=== PATIENT | female | born 1930 | race Caucasian/White ===

== ENCOUNTER 2018-12-25 09:00 | Inpatient (IN) ==
[2018-12-25] MEDS ORDERED: NITROGLYCERIN 2% OINTMENT 30GM TUBE EXT STA (09:29)
[2018-12-25] MEDS ORDERED: ASPIRIN CHEW 324 MG PO STA (09:29)
[2018-12-25 09:46] LABS: Basophils # (auto) 0.02 K/uL (0-0.2); Basophils % (auto) 0.2 %; Eosinophils # (auto) 0.21 K/uL (0-0.5); Eosinophils % (auto) 1.9 %; Hemoglobin 14.7 g/dL (12.0-16.0); Immature Granulocytes # (auto) 0.07 K/uL (0.00-0.02); Immature Granulocytes % (auto) 0.6 %; Lymphocytes # (auto) 2.34 K/uL (1.2-3.4); Lymphocytes % (auto) 20.7 %; Mean Corpuscular Hemoglobin 29.6 pg (25-34); Mean Corpuscular Hgb Conc 34.2 g/dL (32-36); Mean Corpuscular Volume 86.5 fL (80-100); Mean Platelet Volume 10.9 fL (7.4-10.4); Monocytes % (auto) 12.4 %; Neutrophils # (auto) 7.25 K/uL (1.4-6.5); Neutrophils % (auto) 64.2 %; Platelet Count 148 K/uL (130-400); RDW Coefficient of Variation 13.7 % (11.5-14.5); RDW Standard Deviation 43.1 fL (36.4-46.3); Red Blood Count 4.97 M/uL (4.2-5.4); White Blood Count 11.29 K/uL (4.8-10.8)
[2018-12-25 09:52] LABS: Alanine Aminotransferase 31 U/L (12-78); Albumin Level 3.5 gm/dl (3.4-5.0); Aspartate Aminotransferase 9 U/L (15-37); BUN Creatinine Ratio 18.5 (10-20); Blood Urea Nitrogen 16 mg/dl (7-18); Calcium 9.4 mg/dl (8.5-10.1); Carbon Dioxide 30 mmol/L (21-32); Chloride 103 mmol/L (98-107); Creatinine Clr Calc Pharmacy 37.3 ml/min; Est GFR (African American) 66.6; Est GFR (Non-African American) 57.5; Glucose 123 mg/dl (70-99); Lipase 74 U/L (73-393); Magnesium 2.2 mg/dl (1.8-2.4); Sodium 139 mmol/L (136-145)
[2018-12-25 09:56] LABS: Partial Thromboplastin Ratio 0.8; Partial Thromboplastin Time 22.9 Seconds (21.0-31.0); Prothrombin Time 10.7 Seconds (9.0-12.0)
[2018-12-25 09:58] LABS: Alkaline Phosphatase 80 U/L (45-117); Bilirubin,Total 0.6 mg/dl (0.2-1); Globulin 3.4 gm/dl (2.5-4.0); Total Protein 6.9 gm/dl (6.4-8.2); Troponin I < 0.015 ng/ml (0-0.045)
--- NOTE | 2018-12-25 09:58 | XRay Report ---
XR chest 1V portable HISTORY: Atypical Chest Pain COMPARISON: Chest 07/19/2018. FINDINGS: The lungs are clear. The heart remains mildly enlarged. This remains unchanged. There is a tortuous thoracic aorta, unchanged. No pleural effusions. No pneumothorax. No focal lung consolidatio ns to suggest pneumonia. No evidence for edema. IMPRESSION: No significant change compared to the prior study. No acute process. Stable mild cardiomegaly. Electronically signed by: Kevin Anderson M.D. 12/25/2018 9:57 AM
[2018-12-25] MEDS ORDERED: ONDANSETRON INJ 2 MG/ML 2 ML VIAL IV PRN (12:00)
[2018-12-25] MEDS ORDERED: ACETAMINOPHEN 325 MG TAB PO PRN (12:00)
--- NOTE | 2018-12-25 12:23 | History & Physical Report ---
Date of Service December 25, 2018 Assessment & Plan (1) Stable angina: This is an 88-year-old female with past medical history of type 2 diabetes, diastolic heart failure, hypertension, HLD and other medical brims below who presents with chest pain beginning last evening. -Exertional chest pain relieved with rest since yesterday -Given full dose aspirin and 1" ntg paste in ED. Currently chest pain free -EKG reveals normal sinus rhythm with sinus arrhythmia. No acute ischemic changes. Chest x-ray without acute process. Initial troponin negative -Most recent echo from September 2018 with preserved EF of 60%. -Trend troponin, repeat EKG in AM, telemetry -Routine cardiology consult (2) Diabetes mellitus, type II: A1c of 6.4 in June 2018 -Diet controlled -Add SSI coverage if indicated (3) Diastolic heart failure: Appears compensated with euvolemic volume status -Continue home dose lasix -Low sodium diet (4) HTN (hypertension): Continue Lopressor, lisinopril (5) HLD (hyperlipidemia): Intolerant to statins (6) Hypothyroidism: Continue levothyroxine DVT Ppx: SQ heparin Code status: DNR per discussion with patient PCP: Bel Dispo: Observation telemetry. Discharge planning ordered. Patient seen in collaboration with Dr. Parmar. Please see addendum. History of Present Illness Chief Complaint: Chest pain Primary Care Provider: Ananya Staples MD This is an 88-year-old female with past medical history of type 2 diabetes, diastolic heart failure, hypertension, HLD and other medical brims below who presents with chest pain beginning last evening. States that she woke up during the night with chest pain in a bandlike distribution across chest and back/shoulders. Pain resolved and she was able to go back to sleep. When she woke up today and ambulated to bathroom, chest pain returned and she described it as heavy central chest pain with radiation to left and right side of chest and pain in shoulders. Exacerbated by movement and exertion. No associated shortness of breath, diaphoresis, nausea or vomiting. Since arrival in the ED, patient was given full dose aspirin and 1 inch of Nitropaste. No longer experiencing chest pain. Patient states she experienced intermittent angina years ago and this feels very similar. Follows with Dr. Valente of cardiology service for diastolic heart failure. Noticed more bilateral lower extremity swelling last month and Dr. Staples started patient on 20 mg of Lasix daily with improvement to edema. Denies fever, chills, lightheadedness, headache, visual changes, palpitations, shortness of breath, nausea, vomiting, abdominal pain, dysuria, diarrhea or constipation. EKG reveals normal sinus rhythm with sinus arrhythmia. No acute ischemic changes. Chest x-ray without acute process. Initial troponin negative. Most recent echo from September 2018 with preserved EF of 60%. Allergies Allergy/AdvReac Type Severity Reaction Status Date / Time allopurinol Allergy Unknown Verified 12/25/18 09:59 amlodipine Allergy Unknown Verified 12/25/18 09:59 ciprofloxacin [From Cipro] Allergy Unknown Verified 12/25/18 09:59 nifedipine Allergy Unknown Verified 12/25/18 09:59 NSAIDS (Non-Steroidal Allergy Unknown Verified 12/25/18 09:59 Anti-Inflamma oxybutynin [From Ditropan] Allergy Unknown Verified 12/25/18 09:59 Pyltmzb-Iec-Aiy Reductase Allergy Unknown Verified 12/25/18 09:59 Inhibitor sulfamethoxazole AdvReac CENTRAL Verified 12/25/18 09:59 [From Bactrim] NERVOUS SYSTEM DYSFUNCTION trimethoprim [From Bactrim] AdvReac CENTRAL Verified 12/25/18 09:59 NERVOUS SYSTEM DYSFUNCTION Home Medications Home Medications Medication Instructions Recorded Confirmed Type ascorbate calcium-bioflavonoid 1 tab PO UD 07/19/18 12/25/18 History [Rachelle-C with Bioflavonoids] aspirin [Aspir-81] 81 mg PO QAM 07/19/18 12/25/18 History colchicine [Colcrys] 0.6 mg PO DAILY PRN 07/19/18 12/25/18 History cranberry 2,400 mg PO QAM 07/19/18 12/25/18 History darifenacin [Enablex] 15 mg PO QAM 07/19/18 12/25/18 History fexofenadine [Pamela Allergy] 180 mg PO QAM 07/19/18 12/25/18 History fluocinonide 1 applic TOPICAL BID PRN 07/19/18 12/25/18 History hydrocortisone 1 applic MS UD PRN 07/19/18 12/25/18 History levothyroxine [Synthroid] 112 mcg PO DAILYBB 07/19/18 12/25/18 History metoprolol tartrate 12.5 mg PO BID 07/19/18 12/25/18 History omeprazole 20 mg PO QAM 07/19/18 12/25/18 History polyethylene glycol 3350 [Miralax] 8.5 - 17 g PO QAM 07/19/18 12/25/18 History potassium chloride [Klor-Con 10] 10 meq PO QAM 07/19/18 12/25/18 History triamcinolone acetonide 1 applic TOPICAL BID PRN 07/19/18 12/25/18 History witch phi [Tucks (witch phi)] 1 pad TOPICAL BID PRN 07/19/18 12/25/18 History calcium carbonate-vitamin D3 1 tab PO QAM 12/25/18 12/25/18 History [Calcium 600 + D(3)] furosemide 20 mg PO QAM 12/25/18 12/25/18 History latanoprost 1 drp OPHTHALMIC (EYE) HS 12/25/18 12/25/18 History lisinopril 5 mg PO DAILY 12/25/18 12/25/18 History Past Med/Surg History Medical History HLD (hyperlipidemia) (Chronic) HTN (hypertension) (Chronic) Hyponatremia (Chronic) Hypothyroidism (Chronic) Diabetes mellitus, type II (Chronic) Diastolic heart failure (Chronic) Stable angina (Acute) Surgical History History of partial colectomy (Chronic) Hx of partial cystectomy (Chronic) S/P bilateral hip replacements (Chronic) Family History Other Family history non-contributory Social History Preferred Language: Faroese Communication Ability: Effective Beliefs That Will Affect Care: Latter-Day Latter-Day Beliefs: rastafarian marital status: Single Current Living Situation: Personal Care Facility current occupational status: retired Other Information That Helps Us Care for You: No Feels Safe at Home: Yes Safety Concerns: Feels Safe At This Time Smoking Status: Former smoker Hx Alcohol Use: No Review of Systems Review of Systems: Unobtainable due to cognitive status Physical Exam Physical Exam: General Appearance: WD/WN, vitals as above, NAD, sitting up in bed, pleasant, conversing easily Head: normocephalic, atraumatic Eyes: normal inspection, PERRL, conjunctivae normal, anicteric sclerae ENT: external ear and nose normal, oropharynx normal Neck: trachea midline, no thyromegaly normal visual inspection Respiratory: lungs clear to auscultation, no wheeze, rales, rhonchi. Normal insp/exp effort, no accessory muscle use Cardiovascular: regular rate, rhythm, no murmur appreciated, normal peripheral pulses, no BLE edema. Vessels: no JVD or carotid bruit Chest: normal inspection of chest Abdomen/GI: normal bowel sounds, soft, nontender, no hepatosplenomegaly Extremities/Musculoskelatal: no cyanosis or clubbing, extremities motor strength 5/5 Neurologic: PERRL, EOMI, accommodation nl, no face palsy, no dysarthria CN's II-XI intact bilaterally and moves all extremities Psychiatric: A+Ox3, euthymic affect Skin: no rashes, normal color, warm/dry Results & Data Vital Signs (Past 12 Hours) Vital Signs Temp Pulse Pulse Resp BP BP Pulse Ox 12/25/18 12:01 36.3 C L 72 18 162/87 H 98 12/25/18 11:01 57 L 21 141/73 H 98 12/25/18 10:31 55 L 15 136/86 97 12/25/18 10:01 55 L 20 157/86 H 97 12/25/18 09:39 61 18 156/77 H 97 12/25/18 09:33 97 12/25/18 09:12 68 20 97 12/25/18 09:02 36.6 C 67 16 165/89 H 96 Laboratory Results Short CBC 12/25/18 Range/Units 09:15 WBC 11.29 H (4.8-10.8) K/uL Hgb 14.7 (12.0-16.0) g/dL Hct 43.0 (37-47) % Plt Count 148 (130-400) K/uL BMP 12/25/18 09:15 Sodium 139 Potassium 4.0 Chloride 103 Carbon Dioxide 30 BUN 16 Creatinine 0.89 Glucose 123 H Calcium 9.4 Cardiac Enzymes 12/25/18 Range/Units 09:15 Troponin I < 0.015 (0-0.045) ng/ml Liver Function 12/25/18 Range/Units 09:15 Total Bilirubin 0.6 (0.2-1) mg/dl AST 9 L (15-37) U/L ALT 31 (12-78) U/L Alkaline Phosphatase 80 (45-117) U/L Albumin 3.5 (3.4-5.0) gm/dl Diagnostic Findings CXR: IMPRESSION: No significant change compared to the prior study. No acute process. Stable mild cardiomegaly. ECG Rhythm: sinus with SA Supervising Physician Co-Signing Physician Notes I saw this patient with the physician assistant facility manager, I participated in the history, physical, review of systems, and physical exam. I reviewed the medications with the patient and the physician assistant facility manager and helped reconcile the medications. I helped take a detailed family and social history as well. I formulated the assessment and plan personally with the physician assistant facility manager and went over it with the patient. ROS-No Headache, No Visual Changes, No Nausea, No Vomiting, No Fever, No Chills, No Neck Pain or Stiffness, pos Chest Pain rad into back, No Palpitations, No SOB, No ROLON, No Cough, No Sputum, No Wheezing, No Abdominal Pain, No Diarrhea, No Hematemesis, No Hemoptysis, No Unexpected Weight Loss, No Flank pain, No Melena, No Hematochezia, No Frequency, No Urgency, No Burning, No Hematuria, No Rashes, No Diaphoresis. Appetite is Normal Physical Exam Gen-AAO x 3, NAD, Afebrile Head-NCAT, EOMI, PERRLA, Anicteric Sclera, No Posterior Pharyngeal Erythema Neck-Supple, No JVD, No Thyromegaly, No Masses, No LAD, No Bruits Lungs-Clear to Auscultation Bilaterally, No Rales, No Rhonchi, No Wheezing, No Crepitus Chest-No S4, +S1, +S2, No S3, No Murmurs, No Rubs, No Gallops, No Ectopy, reprodicible CP on palpation Abdomen-Soft, Bowel Sounds Present, Non Tender, Non Distended, No Hepatomegaly, No Splenomegaly, No Palpable Masses, No Rebound, No Rigidity, No Guarding Musculoskeletal-Full Range of Motion Bilaterally, No CVAT Extremities-No Cyanosis, No Clubbing, No Edema Nuero-Cranial Nerves II-XII grossly intact, Motor WNL, DTRs WNL, Strength WNL, Non Focal Psych-Normal Mood
[2018-12-25] MEDS ORDERED: NITROGLYCERIN SL 0.4 MG/TAB TAB SL PRN (12:41)
[2018-12-25] MEDS ORDERED: TRIAMCINOLONE ACET 0.025% CR 15 GM TUBE TOP PRN (12:42)
[2018-12-25] MEDS ORDERED: WITCH HAZEL TOP PRN (12:42)
[2018-12-25] MEDS ORDERED: HYDROCORTISONE 1% CRM 30 GM TUBE EXT PRN (12:42)
[2018-12-25] MEDS ORDERED: FLUOCINONIDE 0.05% CR 15 GM TUBE EXT PRN (12:42)
[2018-12-25] MEDS ORDERED: COLCHICINE 0.6 MG TAB PO PRN (12:42)
[2018-12-25] MEDS ORDERED: NON-FORMULARY MEDICATION (Ascorbate Calcium-Bioflavonoid [Ester-C With Bioflavonoids] 1 TA PO SCH (12:45)
--- NOTE | 2018-12-25 13:47 | Emergency Department Note ---
Entered by Reno Gay acting as a scribe for Michoacano Turner MD History of Present Illness General Chief complaint: Cardiac Assessment Stated complaint: CHEST PAIN CARDIAC HX Time Seen by Provider: 12/25/18 09:21 Source: patient History of Present Illness Provider complaint: Chest pain Onset (ago): hour(s) (Last night) Location: chest and left Radiation: back Pain Consistency: + intermittent Quality: + other (Pressure) Relieved By: + none Exacerbated By: + movement Associated symptoms: no diaphoresis, no nausea/vomiting and no shortness of breath The patient is an 88 year old female who presents to the Emergency Room with complaints of intermittent left sided chest pain that first occurred a couple of hours ago throughout the night. The patient states she woke up to use the b athroom when she first noticed her symptoms. However she was able to use the bathroom and fall back to sleep without issue. When the patient woke up this morning she reports the pain was still present in the left side of her chest. The patient rates the pain as a 4/10 and notes it is more of a "pressure". The patient adds that the pain radiates to her back, between her shoulder blades and nothing seems to help relieve it, however movement/exertion makes it worse. The patient denies any shortness of breath, nausea, or diaphoresis during these episodes. The patient does have a cardiac history consisting of angina and CHF for which she follows with Dr. Valente. Home Medications Home Medications Medication Instructions Recorded Confirmed Type ascorbate calcium-bioflavonoid 1 tab PO UD 07/19/18 12/25/18 History [Rachelle-C with Bioflavonoids] aspirin [Aspir-81] 81 mg PO QAM 07/19/18 12/25/18 History colchicine [Colcrys] 0.6 mg PO DAILY PRN 07/19/18 12/25/18 History cranberry 2,400 mg PO QAM 07/19/18 12/25/18 History darifenacin [Enablex] 15 mg PO QAM 07/19/18 12/25/18 History fexofenadine [Pamela Allergy] 180 mg PO QAM 07/19/18 12/25/18 History fluocinonide 1 applic TOPICAL BID PRN 07/19/18 12/25/18 History hydrocortisone 1 applic SC UD PRN 07/19/18 12/25/18 History levothyroxine [Synthroid] 112 mcg PO DAILYBB 07/19/18 12/25/18 History metoprolol tartrate 12.5 mg PO BID 07/19/18 12/25/18 History omeprazole 20 mg PO QAM 07/19/18 12/25/18 History polyethylene glycol 3350 [Miralax] 8.5 - 17 g PO QAM 07/19/18 12/25/18 History potassium chloride [Klor-Con 10] 10 meq PO QAM 07/19/18 12/25/18 History triamcinolone acetonide 1 applic TOPICAL BID PRN 07/19/18 12/25/18 History witch phi [Tucks (witch phi)] 1 pad TOPICAL BID PRN 07/19/18 12/25/18 History calcium carbonate-vitamin D3 1 tab PO QAM 12/25/18 12/25/18 History [Calcium 600 + D(3)] furosemide 20 mg PO QAM 12/25/18 12/25/18 History latanoprost 1 drp OPHTHALMIC (EYE) HS 12/25/18 12/25/18 History lisinopril 5 mg PO DAILY 12/25/18 12/25/18 History Allergies Allergy/AdvReac Type Severity Reaction Status Date / Time allopurinol Allergy Unknown Verified 12/25/18 09:59 amlodipine Allergy Unknown Verified 12/25/18 09:59 ciprofloxacin [From Cipro] Allergy Unknown Verified 12/25/18 09:59 nifedipine Allergy Unknown Verified 12/25/18 09:59 NSAIDS (Non-Steroidal Allergy Unknown Verified 12/25/18 09:59 Anti-Inflamma oxybutynin [From Ditropan] Allergy Unknown Verified 12/25/18 09:59 Hewmloo-Qwz-Ehu Reductase Allergy Unknown Verified 12/25/18 09:59 Inhibitor sulfamethoxazole AdvReac CENTRAL Verified 12/25/18 09:59 [From Bactrim] NERVOUS SYSTEM DYSFUNCTION trimethoprim [From Bactrim] AdvReac CENTRAL Verified 12/25/18 09:59 NERVOUS SYSTEM DYSFUNCTION Past Med/Surg History Medical History HLD (hyperlipidemia) (Chronic) HTN (hypertension) (Chronic) Hyponatremia (Chronic) Hypothyroidism (Chronic) Diabetes mellitus, type II (Chronic) Diastolic heart failure (Chronic) Stable angina (Acute) Surgical History History of partial colectomy (Chronic) Hx of partial cystectomy (Chronic) S/P bilateral hip replacements (Chronic) Family History Other Family history non-contributory Social History Preferred Language: Japanese Communication Ability: Effective Beliefs That Will Affect Care: Scientologist Scientologist Beliefs: zoroastrian marital status: Single Current Living Situation: Personal Care Facility current occupational status: retired Other Information That Helps Us Care for You: No Feels Safe at Home: Yes Safety Concerns: Feels Safe At This Time Smoking Status: Former smoker Hx Alcohol Use: No Review of Systems See HPI for pertinent positives & negatives. and A total of 10 systems reviewed and were otherwise negative Physical Exam Vital Signs Vital Signs - 24 hr 12/25/18 09:02 12/25/18 09:12 12/25/18 09:33 Temperature 36.6 C Temperature Source Oral Sepsis Recent Fever Within 48 Hours No Sepsis New/Unexplained Change in Mental Status No Sepsis Action Taken by Nursing No Action Required Pulse Rate 67 68 Pulse Rate from SpO2 Sensor Respiratory Rate 16 20 Blood Pressure 165/89 H Blood Pressure Mean 114 Pulse Oximetry 96 97 97 Oxygen Delivery Method Room Air Room Air Room Air 12/25/18 09:39 12/25/18 10:01 12/25/18 10:31 Temperature Temperature Source Sepsis Recent Fever Within 48 Hours Sepsis New/Unexplained Change in Mental Status Sepsis Action Taken by Nursing Pulse Rate 61 55 L 55 L Pulse Rate from SpO2 Sensor 57 L 55 L 54 L Respiratory Rate 18 20 15 Blood Pressure 156/77 H 157/86 H 136/86 Blood Pressure Mean 103 109 102 Pulse Oximetry 97 97 97 Oxygen Delivery Method GENERAL: Patient is in no acute distress. HEENT: No acute trauma, normocephalic atraumatic, mucous membranes moist, no nasal congestion, no scleral icterus. NECK: No stridor, no adenopathy, no meningismus, trachea is midline. LUNGS: Clear to auscultation bilaterally, no wheeze, no rhonchi, breath sounds equal. HEART: Subtle systolic murmur heard best at the left sternal border. Occasional extra beat heard. Rate is normal. ABDOMEN: Soft, nontender, bowel sounds positive, no hernias, no peritonitis. EXTREMITIES: No cyanosis or edema, full range of motion of all the joints without pain or difficulty, no signs for acute trauma. NEUROLOGIC: Oriented x 3, no acute motor or sensory deficits, no focal weakness. SKIN: No rash, no jaundice, no diaphoresis. Course 923: Past medical records reviewed. The patient was evaluated in room B03B, and a complete history and physical examination were performed. 1006: I spoke to Keli Herron PAC under Dr. Ghulam Cronin about the patient's case. They are going to accept the patient for further evaluation. 1025: I reevaluated and updated the patient on results. We also discussed the treatment plan with her son at bedside. Both the patient and her son agree with the plan. Consultations Consultation #1: I spoke to Keli Herron PAC under Dr. Ghulam Cronin about the patient's case. They are going to accept the patient for further evaluation. Time: 10:06 Administered Medications Ioversol (Optiray 320 125ml) 117 ml IV ONCE PRN PRN Reason: Interaction Checking Stop: 12/29/18 14:36 Last Admin: 12/25/18 14:37 Dose: 117 ml Documented by: [id number] Discontinued Medications Aspirin (Aspirin) 324 mg PO NOW STA Stop: 12/25/18 09:30 Last Admin: 12/25/18 09:40 Dose: 324 mg Documented by: [id number] Nitroglycerin (Nitro-Bid 2%) 1 inch EXT NOW STA Stop: 12/25/18 09:30 Last Admin: 12/25/18 09:39 Dose: 1 inch Documented by: [id number] Medical Decision Making Differential Diagnosis Differential Diagnosis includes: Angina, [place], anemia, pneumonia, pneumothorax, PE, pericarditis, musculoskeletal pain, and reflux, amongst others. Medical Records Attestation: I reviewed the patient's medical records. Home Medications Current Medication List: was personally reviewed by me Laboratory Data Attestation: I reviewed the patient's lab results. Result diagrams: 12/25/18 09:15 12/25/18 09:15 Lab Results 12/25/18 12/25/18 12/25/18 Range/Units 09:15 09:15 09:15 WBC 11.29 H (4.8-10.8) K/uL RBC 4.97 (4.2-5.4) M/uL Hgb 14.7 (12.0-16.0) g/dL Hct 43.0 (37-47) % MCV 86.5 (80-100) fL MCH 29.6 (25-34) pg MCHC 34.2 (32-36) g/dL RDW Std Deviation 43.1 (36.4-46.3) fL RDW Coeff of Kamala 13.7 (11.5-14.5) % Plt Count 148 (130-400) K/uL MPV 10.9 H (7.4-10.4) fL Immature Gran % (Auto) 0.6 % Neut % (Auto) 64.2 % Lymph % (Auto) 20.7 % [place] % (Auto) 12.4 % Eos % (Auto) 1.9 % Baso % (Auto) 0.2 % Immature Gran # (Auto) 0.07 H (0.00-0.02) K/uL Neut # (Auto) 7.25 H (1.4-6.5) K/uL Lymph # (Auto) 2.34 (1.2-3.4) K/uL [place] # (Auto) 1.40 H (0.11-0.59) K/uL Eos # (Auto) 0.21 (0-0.5) K/uL Baso # (Auto) 0.02 (0-0.2) K/uL PT 10.7 (9.0-12.0) Seconds INR 1.0 (0.9-1.1) APTT 22.9 (21.0-31.0) Seconds PTT Ratio 0.8 Sodium 139 (136-145) mmol/L Potassium 4.0 (3.5-5.1) mmol/L Chloride 103 (98-107) mmol/L Carbon Dioxide 30 (21-32) mmol/L Anion Gap 6.0 (3-11) BUN 16 (7-18) mg/dl Creatinine 0.89 (0.6-1.2) mg/dl Est Cr Clr Drug Dosing 37.3 ml/min Est GFR ( Amer) 66.6 Est GFR (Non-Af Amer) 57.5 BUN/Creatinine Ratio 18.5 (10-20) Glucose 123 H (70-99) mg/dl Calcium 9.4 (8.5-10.1) mg/dl Magnesium 2.2 (1.8-2.4) mg/dl Total Bilirubin 0.6 (0.2-1) mg/dl AST 9 L (15-37) U/L ALT 31 (12-78) U/L Alkaline Phosphatase 80 (45-117) U/L Troponin I < 0.015 (0-0.045) ng/ml Total Protein 6.9 (6.4-8.2) gm/dl Albumin 3.5 (3.4-5.0) gm/dl Globulin 3.4 (2.5-4.0) gm/dl Albumin/Globulin Ratio 1.0 (0.9-2) Lipase 74 (73-393) U/L Imaging Data Radiologist's Impression: Radiology results as stated below per my review and the radiologist's interpretation: XR chest 1V portable HISTORY: Atypical Chest Pain COMPARISON: Chest 07/19/2018. FINDINGS: The lungs are clear. The heart remains mildly enlarged. This remains unchanged. There is a tortuous thoracic aorta, unchanged. No pleural effusions. No pneumothorax. No focal lung consolidations to suggest pneumonia. No evidence for edema. IMPRESSION: No significant change compared to the prior study. No acute process. Stable mild cardiomegaly. Electronically signed by: Kevin Anderson M.D. 12/25/2018 9:57 AM ECG Data Attestation: I personally reviewed and interpreted this ECG as follows: Indication: chest pain Rate (beats per minute): 75 Rhythm: normal sinus Findings: + other (QTC 426); no ST depression, no ST elevation and no acute ischemic change Blood Pressure Blood Pressure Findings: Elevated blood pressure Blood Pressure Disposition: further management by hospitalist [facility] Narrative There is a mild leukocytosis, the patient has a history of the same when looking back at previous testing. No concerning anemia. No coagulopathy. No significant electrolyte abnormality or kidney failure. No evidence for liver enzyme elevation. No evidence for pancreatitis. EKG shows a sinus rhythm, no acute ischemia. Cardiac enzyme testing x1 is not consistent with acute cardiac injury. Chest film does not show pneumonia, mediastinal widening or pneumothorax. The patient was given oral aspirin and nitroglycerin paste, she is currently resting comfortably. The patient presents with exertional chest pain which radiates to her back and shoulders. Certainly, her description of things sounds anginal. I do think further work-up in the hospital is warranted. I spoke to the patient and case management. The on-call hospitalist was consulted. Impression & Plan Chest pain, precordial, History of angina Discharge Plan Visit Data *Final* Discharge Date/Time: 12/25/18 11:54 Chief Complaint: Cardiac Assessment Stated Complaint: CHEST PAIN CARDIAC HX ED Provider: Michoacano Turner Discharge Problem: Chest pain, precordial, History of angina Patient Disposition: Admitted As Inpatient Discharge Instructions Interventions: ED Discharge Assessment Last Done: 12/25/18 11:54 The scribe's documentation has been prepared under my direction and personally reviewed by me in its entirety. I confirm that the note above accurately reflects all work, treatment, procedures, and medical decision making performed by me.
[2018-12-25] MEDS ORDERED: HEPARIN SOD 5,000 UNIT/0.5 ML VIAL SQ SCH (14:00)
[2018-12-25] MEDS ORDERED: OPTIRAY 320 125ml IV PRN (14:37)
--- NOTE | 2018-12-25 14:54 | CT Scan Report ---
CT ANGIOGRAPHY OF THE CHEST, PULMONARY EMBOLUS PROTOCOL CLINICAL HISTORY: Chest pain. Evaluate for pulmonary embolus. COMPARISON STUDY: Chest CT July 19, 2018. Chest radiograph performed earlier today. TECHNIQUE: Following IV administration of 117 mL of Optiray-320, helical axial images of the chest we re obtained utilizing the pulmonary embolus protocol. Maximal intensity projections and sagittal and coronal reformats were viewed on an independent 3D workstation. IV contrast was administered withou t complication. Automated exposure control was utilized for the study. A dose lowering technique wa s utilized adhering to the principles of ALARA. CT DOSE: 262.07 mGy.cm FINDINGS: No pulmonary emboli are identified although the segmental and subsegmental pulmonary arter ies within the right upper lobe are suboptimally assessed due to artifact. The heart is moderately en larged. There is extensive coronary artery calcification. There is no pericardial effusion. No enlarg ed thoracic lymph nodes are present. There is no pneumothorax or pleural effusion. There is no consol idation. Bony thorax is unremarkable as is the upper abdomen. IMPRESSION: 1. No pulmonary emboli identified although segmental and subsegmental pulmonary arteries within the r ight upper lobe suboptimally assessed due to artifact. 2. Moderate cardiomegaly. Extensive coronary artery calcification. 3. No acute intrathoracic findings. Electronically signed by: Adilson Turner M.D. 12/25/2018 2:53 PM
[2018-12-25] MEDS ORDERED: ENOXAPARIN 80 MG/0.8 ML SYR SC SCH (16:00)
--- NOTE | 2018-12-25 16:20 | Cardiology Consultation ---
Date of Consultation December 25, 2018 Assessment & Plan (1) NSTEMI (non-ST elevated myocardial infarction): Per review of her chart and discussion with the patient, it does not appear that she has a history of past angina, and that the symptom is new for her. I do not see it described in her past outpatient cardiology notes. Her cardiology notes describe her being managed for difficult to control hypertension and hypertensive heart disease. Her initial troponin was within normal limits, her second troponin is mildly elevated at 0.187 NG per mL. The patient's most recent blood pressure was still elevated at 164/101. She is being treated with topical nitroglycerin. I have requested a dose of metoprolol tartrate IV 2.5 mg x 1. We will increase her prior to hospital dose of metoprolol tartrate from 12.5 mg twice daily to 25 mg twice daily with holds. Agree with treatment with aspirin, lisinopril. She is not on statin therapy as an outpatient. We will research her past intolerances, but in the meantime we will start atorvastatin. She received anticoagulation dose Lovenox 70 mg subcutaneously earlier today. Until her course is determined in terms of need for cardiac catheterization, I am going to discontinue this in favor of unfractionated heparin, however we would wait 12 hours to consider starting this. (2) HTN (hypertension): As noted above (3) HLD (hyperlipidemia): As noted above History of Present Illness Attending Physician: Luis Alfredo Parmar DO History of Present Illness Jasmina Ferraro is an 88 year old female seen in cardiology consultation per the request of Dr Parmar for the evauluation of chest pain. 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 Jamal Valente of our practice with most recent outpatient visit having been in July 2018. She is followed for her history of hypertension with hypertension related heart disease and diastolic dysfunction.Per review of her record, she does not have a history of past coronary angiography. The patient resides at the [facility]. She presented to the ED today describing waxing and waning bandlike chest discomfort under her breasts. During my assessment of the patient in room 229 he was pacing in the room. She was comfortable at present. Allergies Allergy/AdvReac Type Severity Reaction Status Date / Time allopurinol Allergy Unknown Verified 12/25/18 09:59 amlodipine Allergy Unknown Verified 12/25/18 09:59 ciprofloxacin [From Cipro] Allergy Unknown Verified 12/25/18 09:59 nifedipine Allergy Unknown Verified 12/25/18 09:59 NSAIDS (Non-Steroidal Allergy Unknown Verified 12/25/18 09:59 Anti-Inflamma oxybutynin [From Ditropan] Allergy Unknown Verified 12/25/18 09:59 Uouhlze-Vqq-Jrg Reductase Allergy Unknown Verified 12/25/18 09:59 Inhibitor sulfamethoxazole AdvReac CENTRAL Verified 12/25/18 09:59 [From Bactrim] NERVOUS SYSTEM DYSFUNCTION trimethoprim [From Bactrim] AdvReac CENTRAL Verified 12/25/18 09:59 NERVOUS SYSTEM DYSFUNCTION Home Medications Home Medications Medication Instructions Recorded Confirmed Type ascorbate calcium-bioflavonoid 1 tab PO UD 07/19/18 12/25/18 History [Rachelle-C with Bioflavonoids] aspirin [Aspir-81] 81 mg PO QAM 07/19/18 12/25/18 History colchicine [Colcrys] 0.6 mg PO DAILY PRN 07/19/18 12/25/18 History cranberry 2,400 mg PO QAM 07/19/18 12/25/18 History darifenacin [Enablex] 15 mg PO QAM 07/19/18 12/25/18 History fexofenadine [Pamela Allergy] 180 mg PO QAM 07/19/18 12/25/18 History fluocinonide 1 applic TOPICAL BID PRN 07/19/18 12/25/18 History hydrocortisone 1 applic CO UD PRN 07/19/18 12/25/18 History levothyroxine [Synthroid] 112 mcg PO DAILYBB 07/19/18 12/25/18 History metoprolol tartrate 12.5 mg PO BID 07/19/18 12/25/18 History omeprazole 20 mg PO QAM 07/19/18 12/25/18 History polyethylene glycol 3350 [Miralax] 8.5 - 17 g PO QAM 07/19/18 12/25/18 History potassium chloride [Klor-Con 10] 10 meq PO QAM 07/19/18 12/25/18 History triamcinolone acetonide 1 applic TOPICAL BID PRN 07/19/18 12/25/18 History witch phi [Tucks (witch phi)] 1 pad TOPICAL BID PRN 07/19/18 12/25/18 History calcium carbonate-vitamin D3 1 tab PO QAM 12/25/18 12/25/18 History [Calcium 600 + D(3)] furosemide 20 mg PO QAM 12/25/18 12/25/18 History latanoprost 1 drp OPHTHALMIC (EYE) HS 12/25/18 12/25/18 History lisinopril 5 mg PO DAILY 12/25/18 12/25/18 History Patient History Medical History HLD (hyperlipidemia) (Chronic) HTN (hypertension) (Chronic) Hyponatremia (Chronic) Hypothyroidism (Chronic) Diabetes mellitus, type II (Chronic) Diastolic heart failure (Chronic) Stable angina (Acute) Surgical History History of partial colectomy (Chronic) Hx of partial cystectomy (Chronic) S/P bilateral hip replacements (Chronic) Family History Other Family history non-contributory Social History Preferred Language: Mexican Communication Ability: Effective Beliefs That Will Affect Care: Mandaen Mandaen Beliefs: jainism marital status: Single Current Living Situation: Personal Care Facility current occupational status: retired Other Information That Helps Us Care for You: No Feels Safe at Home: Yes Safety Concerns: Feels Safe At This Time Smoking Status: Former smoker Hx Alcohol Use: No Review of Systems Review of Systems: All systems reviewed & are unremarkable except as noted in HPI & below Physical Exam Physical Exam: Temp Pulse Resp BP Pulse Ox 36.5 C 67 20 164/101 H 97 12/25/18 16:02 12/25/18 16:22 12/25/18 16:02 12/25/18 16:02 12/25/18 16:02 Constitutional: WD/WN, vitals as above Respiratory: normal respiratory effort, lungs clear to auscultation Cardiovascular: RRR, no murmur, no edema Neurologic: PERRL, EOMI, accommodation nl, no face palsy, no dysarthria Results & Data Vital Signs (Past 12 Hours) Vital Signs Temp Pulse Pulse Resp BP BP Pulse Ox 12/25/18 16:02 36.5 C 94 H 20 164/101 H 97 12/25/18 12:15 63 12/25/18 12:01 36.3 C L 72 18 162/87 H 98 12/25/18 11:01 57 L 21 141/73 H 98 12/25/18 10:31 55 L 15 136/86 97 12/25/18 10:01 55 L 20 157/86 H 97 12/25/18 09:39 61 18 156/77 H 97 12/25/18 09:33 97 12/25/18 09:12 68 20 97 12/25/18 09:02 36.6 C 67 16 165/89 H 96 Laboratory Results Cardiac Enzymes 12/25/18 12/25/18 Range/Units 09:15 15:09 AST 9 L (15-37) U/L Troponin I < 0.015 0.187 H* (0-0.045) ng/ml Coagulation 12/25/18 Range/Units 09:15 PT 10.7 (9.0-12.0) Seconds APTT 22.9 (21.0-31.0) Seconds CBC 12/25/18 Range/Units 09:15 WBC 11.29 H (4.8-10.8) K/uL RBC 4.97 (4.2-5.4) M/uL Hgb 14.7 (12.0-16.0) g/dL Hct 43.0 (37-47) % Plt Count 148 (130-400) K/uL Neut # (Auto) 7.25 H (1.4-6.5) K/uL Lymph # (Auto) 2.34 (1.2-3.4) K/uL Wolfe # (Auto) 1.40 H (0.11-0.59) K/uL Eos # (Auto) 0.21 (0-0.5) K/uL Baso # (Auto) 0.02 (0-0.2) K/uL Comprehensive Metabolic Panel 12/25/18 Range/Units 09:15 Sodium 139 (136-145) mmol/L Potassium 4.0 (3.5-5.1) mmol/L Chloride 103 (98-107) mmol/L Carbon Dioxide 30 (21-32) mmol/L BUN 16 (7-18) mg/dl Creatinine 0.89 (0.6-1.2) mg/dl Glucose 123 H (70-99) mg/dl Calcium 9.4 (8.5-10.1) mg/dl AST 9 L (15-37) U/L ALT 31 (12-78) U/L Alkaline Phosphatase 80 (45-117) U/L Total Protein 6.9 (6.4-8.2) gm/dl Albumin 3.5 (3.4-5.0) gm/dl Intake and Output 12/25/18 12/25/18 12/25/18 06:59 14:59 22:59 Other: # Unmeasured Voids 1 Weight 66 kg Patient Weight 12/26/18 06:59 Weight 66 kg Diagnostic Findings Initial EKG performed today at 9:12 AM and reviewed independently revealed sinus rhythm with sinus arrhythmia at 75 bpm, normal EKG. Repeat tracing performed at the bedside at 1633 revealed sinus rhythm with premature atrial contractions. There is J-point noted in leads V1 and V2, but is somewhat of a poor quality tracing as it was difficult to have the patient lay still because she was interested in talking. My interpretation is that this EKG is not customer engagement representative of ST elevation myocardial infarction Medications Administered Current Inpatient Medications Acetaminophen (Tylenol) 650 mg PO Q4H PRN PRN Reason: Pain or Fever Stop: 01/24/19 11:59 Aspirin (Ecotrin Ectab) [facility] Stop: 01/25/19 08:59 Colchicine (Colcrys) 0.6 mg PO DAILY PRN PRN Reason: gout Stop: 01/24/19 12:41 Enoxaparin Sodium (Lovenox) 70 mg SC Q12@0600,1800 [facility] Stop: 01/24/19 15:59 Last Admin: 12/25/18 16:12 Dose: 70 mg Documented by: Fexofenadine HCl (Pamela) 180 mg PO QAM [facility] Stop: 01/25/19 08:59 Fluocinonide (Lidex 0.5%) 1 appln EXT BID PRN PRN Reason: SCALP Stop: 01/24/19 12:41 Furosemide (Lasix) 20 mg PO QAM [facility] Stop: 01/25/19 08:59 Hydrocortisone (Hydrocortisone 1%) 1 appln EXT UD PRN PRN Reason: AFTER EACH BM Stop: 01/24/19 12:41 Ioversol (Optiray 320 125ml) 117 ml IV ONCE PRN PRN Reason: Interaction Checking Stop: 12/29/18 14:36 Last Admin: 12/25/18 14:37 Dose: 117 ml Documented by: Latanoprost (Xalatan Oph) 1 drops OP HS [facility] Stop: 01/24/19 20:59 Levothyroxine Sodium (Synthroid) 112 mcg PO DAILYBB [facility] Stop: 01/25/19 06:29 Lisinopril (Zestril) 5 mg PO DAILY [facility] Stop: 01/25/19 08:59 Metoprolol Tartrate (Lopressor) 12.5 mg PO BID [facility] Stop: 01/24/19 20:59 Miscellaneous (Order Awaiting Action) 1 ea N/A QS [facility] Stop: 01/24/19 15:59 Last Admin: 12/25/18 16:14 Dose: Not Given Documented by: Multivitamins/Minerals (Caltrate Plus) 1 tab PO QAM [facility] Stop: 01/25/19 08:59 Nitroglycerin (Nitrostat) 0.4 mg SL PRN PRN PRN Reason: Chest Pain Stop: 01/24/19 12:40 Ondansetron HCl (Zofran) 4 mg IV Q6H PRN PRN Reason: Nausea Stop: 01/24/19 11:59 Pantoprazole Sodium (Protonix) 40 mg [facility] Stop: 01/25/19 08:59 Polyethylene Glycol (Miralax Powder Packet) 17 gm PO DAILY PRN PRN Reason: Constipation Stop: 01/24/19 11:59 Potassium Chloride (Klor-Con M10) 10 meq PO [facility] Stop: 01/25/19 08:59 Triamcinolone Acetonide (Kenalog 0.025%) 1 appln TOP BID PRN PRN Reason: APPLY TO BACK & NECK Stop: 01/24/19 12:41
[2018-12-25] MEDS ORDERED: METOPROLOL TARTRATE 1 MG/ML VIAL IV STA (16:48)
[2018-12-25] MEDS ORDERED: lisinopriL 5 MG TAB PO STA (17:07)
[2018-12-25] MEDS ORDERED: LORazepam 0.25 MG/0.5 ML VIAL IV STA (17:07)
[2018-12-25] MEDS ORDERED: ICU PROTOCOL FOR HYPERGLYCEMIA PRN (17:36)
[2018-12-25] MEDS ORDERED: Heparin IV Standard *NO* Bolus IV SCH (17:46)
[2018-12-25] MEDS ORDERED: CLOPIDOGREL BISULFATE 75 MG TAB PO ONE (17:46)
[2018-12-25] MEDS ORDERED: HEPARIN SODIUM/DEXTROSE 25,000 UNITS/500 ML BAG IV SCH (18:30)
[2018-12-25] MEDS: ATORVASTATIN 20 MG TAB PO SCH (18:47)
[2018-12-25] MEDS: NITROGLYCERIN 2% OINTMENT 30GM TUBE EXT SCH ×2 (19:07→23:54)
[2018-12-25] MEDS: METOPROLOL TARTRATE 25 MG TAB PO SCH (20:57)
[2018-12-25] MEDS: LATANOPROST 0.005% OP SOLN 2.5 ML BTL OP SCH (20:58)
[2018-12-25] MEDS ORDERED: METOPROLOL TARTRATE 25 MG TAB PO SCH (21:00)
[2018-12-26] MEDS ORDERED: MoRPHine SULFATE 2 MG/ML CARP IV STA ×2 (02:42→05:27)
[2018-12-26] MEDS ORDERED: ALUMINUM/MAGNESIUM/SIMETH (MAALOX MAX) 30 ML UDC PO STA (05:32)
[2018-12-26 05:51] LABS: Hematocrit (blood only) 41.7 % (37-47); Hemoglobin 14.4 g/dL (12.0-16.0); Mean Corpuscular Hemoglobin 29.9 pg (25-34); Mean Corpuscular Hgb Conc 34.5 g/dL (32-36); Mean Corpuscular Volume 86.5 fL (80-100); Mean Platelet Volume 10.6 fL (7.4-10.4); Platelet Count 132 K/uL (130-400); RDW Coefficient of Variation 13.8 % (11.5-14.5); RDW Standard Deviation 43.6 fL (36.4-46.3); Red Blood Count 4.82 M/uL (4.2-5.4); White Blood Count 17.84 K/uL (4.8-10.8)
[2018-12-26] MEDS: NITROGLYCERIN 2% OINTMENT 30GM TUBE EXT SCH (06:04)
[2018-12-26] MEDS: LEVOTHYROXINE SODIUM 112 MCG TABLET PO SCH (06:04)
[2018-12-26 06:20] LABS: BUN Creatinine Ratio 17.9 (10-20); Calcium 9.4 mg/dl (8.5-10.1); Creatinine Clr Calc Pharmacy 38.6 ml/min; Est GFR (African American) 69.4; Est GFR (Non-African American) 59.9; Potassium 4.2 mmol/L (3.5-5.1)
[2018-12-26] MEDS ORDERED: HEPARIN (PORCINE) 1000 UNIT/ML 10 ML (CATH LAB USE ONLY) ONE (06:24)
[2018-12-26] MEDS ORDERED: NiCARDipine HCL INJ 2.5 MG/ML 10 ML AMP ONE (06:24)
[2018-12-26] MEDS ORDERED: fentaNYL citrate 100 MCG/2 ML VIAL ONE (06:24)
[2018-12-26] MEDS ORDERED: MIDAZOLAM HCL 1 MG/ML 2ML VIAL ONE (06:25)
[2018-12-26] MEDS ORDERED: NITROGLYCERIN/D5W 100MCG/ML 20ML SYR ONE (06:26)
--- NOTE | 2018-12-26 06:32 | XRay Report ---
XR chest 1V portable CLINICAL HISTORY: 88 years-old Female presenting with heart alert. TECHNIQUE: Portable upright AP view of the chest was obtained. COMPARISON: 12/25/2018. FINDINGS: Atherosclerosis of the aortic arch. Cardiac silhouette enlarged. Mitral annular calcification suspect ed. Pulmonary vascular prominence. Mildly low lung lines. Vascular crowding at the lung bases. No foc al opacity. No large effusion or pneumothorax. Osteopenia may be present. Degenerative changes of the spine. No gross evidence of a rib fracture. Upper abdomen normal. IMPRESSION: 1. Cardiomegaly and volume overload. No martínez pulmonary edema. 2. Mildly low lung volumes. Electronically signed by: Moiz Coffey M.D. 12/26/2018 6:31 AM
[2018-12-26] MEDS ORDERED: ASPIRIN 81 MG CHEW ONE (06:53)
--- NOTE | 2018-12-26 06:55 | Pre Anesthesia Assessment ---
Date of Service December 26, 2018 Pre Sedation Assessment Vital Signs Temp Pulse Pulse Resp BP BP Pulse Ox 12/26/18 03:00 97.7 F 71 20 127/77 92 12/25/18 23:50 64 131/75 12/25/18 23:30 12/25/18 23:00 97.7 F 64 18 112/67 95 12/25/18 18:47 97.7 F 77 19 150/84 H 95 12/25/18 16:22 67 12/25/18 16:02 97.7 F 94 H 20 164/101 H 97 12/25/18 12:15 63 12/25/18 12:01 97.3 F L 72 18 162/87 H 98 12/25/18 11:01 57 L 21 141/73 H 98 12/25/18 10:31 55 L 15 136/86 97 12/25/18 10:01 55 L 20 157/86 H 97 12/25/18 09:39 61 18 156/77 H 97 12/25/18 09:33 97 12/25/18 09:12 68 20 97 12/25/18 09:02 97.9 F 67 16 165/89 H 96 Pulse Ox 12/26/18 03:00 12/25/18 23:50 12/25/18 23:30 95 12/25/18 23:00 12/25/18 18:47 12/25/18 16:22 12/25/18 16:02 12/25/18 12:15 12/25/18 12:01 12/25/18 11:01 12/25/18 10:31 12/25/18 10:01 12/25/18 09:39 12/25/18 09:33 12/25/18 09:12 12/25/18 09:02 Cardiovascular RRR, no murmur, no edema Respiratory normal respiratory effort, lungs clear to auscultation Pre-Sedation Airway Assessment Smoking Status: Former smoker Hx Sleep Apnea: No Hx Difficult Intubation: No Short, Thick Neck: No Thyromental Distance: > or= 3.5 Finger Breadths Oral Cavity: + WNL Mallampati Class: III Procedure Planning Contraindications for Sedation: none Current Medications Reviewed: Yes Notes The planned sedation has been discussed with the patient. Informed Consent was obtained. I have identified the patient, determined the appropriateness of se dation and have assessed the patient immediately prior to the procedure. All medicine(s) and interventions are by my order.
--- NOTE | 2018-12-26 07:25 | Hospitalist Progress Note ---
Date of Service December 26, 2018 Assessment & Plan (1) Stable angina: This is an 88-year-old female with past medical history of type 2 diabetes, diastolic heart failure, hypertension, HLD and other medical brims below who presents with chest pain beginning last evening. -Exertional chest pain relieved with rest since 1 ryanne EMERGENCY DEPARTMENT RN -Given full dose aspirin and 1" ntg paste in ED. Chest pain at 0215 this am-->wisked off to [facility]orer [facility] -EKG reveals normal sinus rhythm with sinus arrhythmia. No acute ischemic changes. Chest x-ray without acute process. Initial troponin negative, but turned Pos -Most recent echo from September 2018 with preserved EF of 60%. -Cardiology consult (2) Diabetes mellitus, type II: A1c of 6.4 in June 2018 -Diet controlled -Add SSI coverage if indicated (3) Diastolic heart failure: Appears compensated with euvolemic volume status -Continue home dose lasix -Low sodium diet (4) HTN (hypertension): Continue Lopressor, lisinopril (5) HLD (hyperlipidemia): Intolerant to statins (6) Hypothyroidism: Continue levothyroxine labs checked DVT Ppx: IV heparin Code status: DNR per discussion with patient PCP: Mainali Dispo: Inpatient status. Discharge planning ordered. ROS-No Headache, No Visual Changes, No Nausea, No Vomiting, No Fever, No Chills, No Neck Pain or Stiffness, Pos Chest Pain, No Palpitations, + SOB, No ROLON, No Cough, No Sputum, No Wheezing, No Abdominal Pain, No Diarrhea, No Hematemesis, No Hemoptysis, No Unexpected Weight Loss, No Flank pain, No Melena, No Hematochezia, No Frequency, No Urgency, No Burning, No Hematuria, No Rashes, No Diaphoresis. Appetite is Normal Physical Exam Gen-AAO x 3, NAD, Afebrile Head-NCAT, EOMI, PERRLA, Anicteric Sclera, No Posterior Pharyngeal Erythema Neck-Supple, No JVD, No Thyromegaly, No Masses, No LAD, No Bruits Lungs-Clear to Auscultation Bilaterally, No Rales, No Rhonchi, No Wheezing, No Crepitus Chest-No S4, +S1, +S2, No S3, No Murmurs, No Rubs, No Gallops, No Ectopy Abdomen-Soft, Bowel Sounds Present, Non Tender, Non Distended, No Hepatomegaly, No Splenomegaly, No Palpable Masses, No Rebound, No Rigidity, No Guarding Musculoskeletal-Full Range of Motion Bilaterally, No CVAT Extremities-No Cyanosis, No Clubbing, No Edema Nuero-Cranial Nerves II-XII grossly intact, Motor WNL, DTRs WNL, Strength WNL, Non Focal Psych-Normal Mood Results & Data Vital Signs (Past 12 Hours) Vital Signs Temp Pulse Resp BP Pulse Ox Pulse Ox 12/26/18 03:00 36.5 C 71 20 127/77 92 12/25/18 23:50 64 131/75 12/25/18 23:30 95 12/25/18 23:00 36.5 C 64 18 112/67 95 Current Diagnoses Hypothyroidism, unspecified (12/25/18) Type 2 diabetes mellitus without complications (12/25/18) Hyperlipidemia, unspecified (12/25/18) Essential (primary) hypertension (12/25/18) Other forms of angina pectoris (12/25/18) Non-ST elevation (NSTEMI) myocardial infarction (12/25/18) Unspecified diastolic (congestive) heart failure (12/25/18) Allergies allopurinol Allergy (Verified 12/25/18 09:59) Unknown amlodipine Allergy (Verified 12/25/18 09:59) Unknown ciprofloxacin [From Cipro] Allergy (Verified 12/25/18 09:59) Unknown nifedipine Allergy (Verified 12/25/18 09:59) Unknown NSAIDS (Non-Steroidal Anti-Inflamma Allergy (Verified 12/25/18 09:59) Unknown oxybutynin [From Ditropan] Allergy (Verified 12/25/18 09:59) Unknown Qcpbkeh-Njy-Lfu Reductase Inhibitor Allergy (Verified 12/25/18 09:59) Unknown sulfamethoxazole [From Bactrim] Adverse Reaction (Verified 12/25/18 09:59) CENTRAL NERVOUS SYSTEM DYSFUNCTION trimethoprim [From Bactrim] Adverse Reaction (Verified 12/25/18 09:59) CENTRAL NERVOUS SYSTEM DYSFUNCTION Height/Weight/Isolation Height 5 ft 1 in Weight 66 kg Chemistry 12/25/18 12/26/18 09:15 05:32 Sodium 139 138 Potassium 4.0 4.2 Chloride 103 105 Carbon Dioxide 30 27 Anion Gap 6.0 6.0 BUN 16 15 Creatinine 0.89 0.86 Glucose 123 H 162 H
[2018-12-26] MEDS ORDERED: CLOPIDOGREL BISULFATE 300 MG TAB ONE (07:52)
--- NOTE | 2018-12-26 07:56 | Post Anesthesia Assessment ---
Date of Service December 26, 2018 Post Sedation Assessment Vital Signs Temp Pulse Pulse Resp BP BP Pulse Ox 12/26/18 03:00 97.7 F 71 20 127/77 92 12/25/18 23:50 64 131/75 12/25/18 23:30 12/25/18 23:00 97.7 F 64 18 112/67 95 12/25/18 18:47 97.7 F 77 19 150/84 H 95 12/25/18 16:22 67 12/25/18 16:02 97.7 F 94 H 20 164/101 H 97 12/25/18 12:15 63 12/25/18 12:01 97.3 F L 72 18 162/87 H 98 12/25/18 11:01 57 L 21 141/73 H 98 12/25/18 10:31 55 L 15 136/86 97 12/25/18 10:01 55 L 20 157/86 H 97 12/25/18 09:39 61 18 156/77 H 97 12/25/18 09:33 97 12/25/18 09:12 68 20 97 12/25/18 09:02 97.9 F 67 16 165/89 H 96 Pulse Ox 12/26/18 03:00 12/25/18 23:50 12/25/18 23:30 95 12/25/18 23:00 12/25/18 18:47 12/25/18 16:22 12/25/18 16:02 12/25/18 12:15 12/25/18 12:01 12/25/18 11:01 12/25/18 10:31 12/25/18 10:01 12/25/18 09:39 12/25/18 09:33 12/25/18 09:12 12/25/18 09:02 Recovery Score Activity: Moves 4 extremities Respiration: Deep Breath/Cough Circulation: +/-20% PreAnes Value Consciousness: Fully Awake Oxygen Saturation: O2 needed for >90% Discharge Sedation Level of Care: Fast Track Phase II Post Sedation Plan On clinical assessment, the patient appears to have tolerated the sedation wi thout complications. Patient is recovering as anticipated. Patient will continue to be monitored by nursing and may be discharged when sedation discharge criteria are met per below protocol. Upon Completions of procedure and additional 15 minutes continue every 5 minute vital signs and the P.A.R. score; then discharge to a Phase I or Fast Track to Phase II per the following guidelines: * Discharge Patient to appropriate Phase II area if PAR is 8 or greater or return to pre- procedure baseline. The post - procedure orders will be as directed. * If PAR score is less than 8 or not return to pre-procedure baseline then patient will follow Phase I monitoring till PAR is reached for Phase II. The Phase I may be done in procedure room or may call to secure a Phase I area. * If naloxone or flumazenil are used for reversal, hold in Phase I for continued monitoring from when last reversal dose was given for a minimum of 60 minutes or longer pending the nurse and/or physician discretion of patient condition before discharge to Phase II. Please call the Sedation Physician to re-evaluate and complete post-note for discharge to Phase II area. Do NOT discharge from procedure sedation or Phase 1 until post- sedation evaluation note is complete by procedure /sedation MD Sedation Discharge Instructions to be given to the patient at discharge to home.
--- NOTE | 2018-12-26 07:58 | Cardiac Catheterization ---
[facility] Data: Insurance Representative Cardiac Status Clinical evaluation leading to the procedure CAD Presenation: Non STEMI Anginal Classification: CCS IV Heart Failure: No Cardiogenic Shock within 24 Hours: No Cardiac Arrest within 24 Hours: No Imaging Studies Past 6 Months: No Stress Studies Past 6 Months: No Diagnostic Physicians Name: Matthew Saavedra MD Status: Elective Closure Device Percutaneous Entry Location: Radial Closure Device: Radial Band Recommendations: PCI without planned CABG PCI Indication: PCI for high risk Non-BERNICE Lesion Segment Name: Mid LAD Culprit Artery: Yes Stenosis Prior to Rx (%): 99 Chronic Total Occlusion: No IVUS: No FFR: No Pre-Procedure BRADLEY Flow: 2 Previously Treated Lesion: No Lesion Complexity: Non-High/Non-C Lesion Length (mm): 20 Thrombus Present: Yes Bifurcation Lesion: Yes Guidewire Across Lesion: Stenosis Post-Procedure (%): 0 Post-Procedure BRADLEY Flow: 3 Devices(s) Deployed: Yes Yes Intraprocedure Events Significant Disection: No Perforation: No Cardiac Cath Procedure Full Procedure Date December 26, 2018 Pre-Procedure Diagnosis Pre-Procedure Diagnosis: Non STEMI AUC Score AUC Score: 8 Post-Procedure Diagnosis Post-Procedure Diagnosis: Severe CAD and Successful PCI Procedure(s) Performed Procedure(s) Performed: Coronary Angiography and Drug Eluting Stent Poising Inspector Matthew Saavedra MD Piece Meat Trimmer(s) Mouna Estimated Blood Loss Estimated Blood Loss: 20 Medication(s) Medication(s): Clopidogrel, Fentanyl, Heparin, Lidocaine 1%, Nicardipine, Nitroglycerin and Versed Summary of Findings Indication: High risk NSTEMI Access: 6 Fr right radial artery Catheters: [place], EBU 3.5 guide, JL 3.5 guide Findings: LM -calcified, luminal irregularities LAD -heavily calcified, 95+% earlymid LAD prior to takeoff of moderate caliber first diagonal, mid and distal luminal irregularities and tapers to apex Circumflex -large caliber, calcified, 30% ostial stenosis, mid and distal luminal irregularities. Large PLB without significant disease RCA -moderate caliber vessel, dominant, mid segment luminal irregularities, 50% disease in mid right PDA -- PCI -- Antithrombotic therapy: Heparin, clopidogrel Procedure: Left main cannulated with JL 3.5 guide [employer] 50 wire passed across lesion into distal vessel Pro-water wire placed into diagonal Mid LAD lesion predilated with 2.0 and 2.5 compliant balloon Dilated lesion stented with 2.75 x 28 mm Xience drug-eluting stent. Stent delivered with aid of a guide liner. Stent post-dilated with 2.7 noncompliant balloon IC vasodilators administered for spasm Post procedure BRADLEY 3 flow, stent well expanded with minimal residual stenosis. Residual ostial stenosis of first diagonal with BRADLEY-3 flow. Arterial Closure: TR band Summary: 1. Severe single-vessel coronary artery disease -95+% earlymid LAD 30% ostial circumflex 50% small right PDA 2. Successful PCI of mid LAD with single drug-eluting stent (2.75 x 28 mm Xience Fabiola). Recommendations: To PCU for continued monitoring Loaded with clopidogrel 600 mg in catheter Continue dual-antiplatelet therapy for at least one year Continue statin, and ASCVD risk factor modification Consult cardiac Rehab Hemodynamics Rest Ao:: 129/67/95 Final Ao: 144/59/109 LV: -- Recommendations Recommendations: PCI without planned CABG Specimens Specimens: None Radiation Exposure (mGy) 1687 Contrast (mls) 110 Fluids (cc crystalloids) Fluids (cc crystalloids): 100 Drains Drains: None Anesthesia Moderate Procedural Complication(s) None Disposition PCU
[2018-12-26] MEDS ORDERED: SODIUM CHLORIDE 0.9% 1000ML 1,000 ML IV SCH (08:00)
[2018-12-26] MEDS ORDERED: POLYETHYLENE (MIRALAX) 17 GM PACK PO SCH (09:00)
[2018-12-26] MEDS ORDERED: FUROSEMIDE 20 MG TAB PO SCH (09:00)
[2018-12-26] MEDS: METOPROLOL TARTRATE 25 MG TAB PO SCH ×3 (10:43→21:06)
[2018-12-26] MEDS: CLOPIDOGREL BISULFATE 75 MG TAB PO SCH (10:44)
[2018-12-26] MEDS: PANTOprazole 40 MG TAB PO SCH (10:44)
[2018-12-26] MEDS: CALCIUM 600MG + VIT D 400 IU TAB PO SCH (10:45)
[2018-12-26] MEDS: ASPIRIN 81 MG ECTAB PO SCH (10:45)
[2018-12-26] MEDS: lisinopriL 5 MG TAB PO SCH (10:45)
[2018-12-26] MEDS: POTASSIUM CHLORIDE 10 MEQ TABCR PO SCH (10:46)
[2018-12-26] MEDS: FEXOFENADINE HCL 180 MG TAB PO SCH (10:46)
[2018-12-26] MEDS: ATORVASTATIN 20 MG TAB PO SCH (10:48)
--- NOTE | 2018-12-26 11:05 | Cardiology Progress Note ---
Date of Service December 26, 2018 Assessment & Plan (1) NSTEMI (non-ST elevated myocardial infarction): Due to worsening symptoms , emergent coronary angiography performed this am by Dr Saavedra of interventional cardiology. Summary of catheterization findings: -95+% earlymid LAD stenosis 30% ostial circumflex stenosis 50% small right PDA stenosis -anginal symptoms improved. Patient underwent successful PCI of mid LAD with single drug-eluting stent (2.75 x 28 mm Xience Fabiola). Continue ASA, plavix, metoprolol. Plan for echo. Continue to observe on telemetry unit. (2) HTN (hypertension): BP improved. Continue metoprolol and lisinopril. Furosemide on hold given contrast exposure. (3) HLD (hyperlipidemia): Pt intolerant of statin agents in past due to atypical symptoms. I counseled pt and son regarding rationale for this medication. Continue atorvastatin , started 12/25/18. Subjective CC: follow up chest pain, myocardial infarction Subjective: Overnight pt's troponin measurements trended up peaking at 2.2 in the early hours of this am. Pt was assessed by Dr Sheppard acura sales consultant for the hospitalist service for worsening chest pain, with EKG findings of new lateral T wave inversions. Dr Duncan consulted by phone and heart alert protocol initiated. Review of Systems Review of Systems: All systems reviewed & are unremarkable except as noted in HPI & below Physical Exam Physical Exam: Temp Pulse Resp BP Pulse Ox 36.5 C 79 16 109/69 90 12/26/18 08:44 12/26/18 09:44 12/26/18 09:44 12/26/18 09:44 12/26/18 09:44 Constitutional: WD/WN, vitals as above Respiratory: normal respiratory effort, lungs clear to auscultation Cardiovascular: RRR, no murmur, no edema Gastrointestinal (Abdomen): normal bowel sounds, soft, nontender, no hepatosplenomegaly Skin: R radial artery access site, clean dry and intact, no ecchymosis Neurologic: PERRL, EOMI, accommodation nl, no face palsy, no dysarthria Results & Data Vital Signs (Past 12 Hours) Vital Signs Temp Pulse Resp BP BP Pulse Ox Pulse Ox 12/26/18 09:44 79 16 109/69 90 12/26/18 09:14 76 16 115/82 12/26/18 08:44 36.5 C 80 14 126/74 95 12/26/18 08:29 36.8 C 80 16 118/76 95 12/26/18 08:14 36.5 C 85 14 125/75 94 12/26/18 03:00 36.5 C 71 20 127/77 92 12/25/18 23:50 64 131/75 12/25/18 23:30 95 Laboratory Results Cardiac Enzymes 12/25/18 12/25/18 12/25/18 Range/Units 15:09 17:50 23:36 Troponin I 0.187 H* 0.470 H* 2.040 H* (0-0.045) ng/ml 12/26/18 12/26/18 Range/Units 05:32 09:35 Troponin I 2.210 H* 2.180 H* (0-0.045) ng/ml CBC 12/26/18 Range/Units 05:32 WBC 17.84 H (4.8-10.8) K/uL RBC 4.82 (4.2-5.4) M/uL Hgb 14.4 (12.0-16.0) g/dL Hct 41.7 (37-47) % Plt Count 132 (130-400) K/uL Comprehensive Metabolic Panel 12/26/18 Range/Units 05:32 Sodium 138 (136-145) mmol/L Potassium 4.2 (3.5-5.1) mmol/L Chloride 105 (98-107) mmol/L Carbon Dioxide 27 (21-32) mmol/L BUN 15 (7-18) mg/dl Creatinine 0.86 (0.6-1.2) mg/dl Glucose 162 H (70-99) mg/dl Calcium 9.4 (8.5-10.1) mg/dl Intake and Output 12/25/18 12/26/18 12/26/18 22:59 06:59 14:59 Intake Total 240 / 240 Balance 240 / 240 Intake: IV HEPARIN SODIUM/DEXTROSE 25,000 units In 500 ml @ 1,000 UNITS/ HR 20 mls/hr IV .Q24H [facility] Rx#: [id number] Oral 240 / 240 Other: # Unmeasured Voids 2
[2018-12-26] MEDS ORDERED: ZIPRASIDONE 20 MG/ML SDV IM STA (15:45)
[2018-12-26] MEDS ORDERED: DiphenhydrAMINE HCL 50 MG/ML VIAL ONE (16:27)
[2018-12-26] MEDS ORDERED: DiphenhydrAMINE HCL 50 MG/ML VIAL IV STA (16:57)
[2018-12-26] MEDS: TOLTERODINE TARTRATE 1 MG TAB PO SCH ×2 (20:31→21:06)
[2018-12-26] MEDS: LATANOPROST 0.005% OP SOLN 2.5 ML BTL OP SCH ×2 (20:32→21:06)
[2018-12-26] MEDS ORDERED: HALOPERIDOL LACTATE 5 MG/ML 1 ML VIAL IM STA (20:54)
[2018-12-26] MEDS ORDERED: HALOPERIDOL LACTATE 5 MG/ML 1 ML VIAL ONE (20:57)
[2018-12-27] MEDS: LEVOTHYROXINE SODIUM 112 MCG TABLET PO SCH (05:39)
[2018-12-27 06:39] LABS: Hematocrit (blood only) 37.3 % (37-47); Hemoglobin 12.5 g/dL (12.0-16.0); Mean Corpuscular Hemoglobin 29.2 pg (25-34); Mean Corpuscular Hgb Conc 33.5 g/dL (32-36); Mean Corpuscular Volume 87.1 fL (80-100); Mean Platelet Volume 10.8 fL (7.4-10.4); Platelet Count 102 K/uL (130-400); RDW Standard Deviation 44.3 fL (36.4-46.3); Red Blood Count 4.28 M/uL (4.2-5.4); White Blood Count 10.45 K/uL (4.8-10.8)
[2018-12-27 07:19] LABS: Albumin Level 2.9 gm/dl (3.4-5.0); Calcium 9.2 mg/dl (8.5-10.1); Creatinine Clr Calc Pharmacy 41.1 ml/min; Est GFR (African American) 74.6; Est GFR (Non-African American) 64.4
[2018-12-27 07:27] LABS: Bilirubin,Total 1.3 mg/dl (0.2-1); Total Protein 5.9 gm/dl (6.4-8.2)
--- NOTE | 2018-12-27 08:18 | Hospitalist Progress Note ---
Date of Service December 27, 2018 Assessment & Plan (1) Stable angina: This is an 88-year-old female with past medical history of type 2 diabetes, diastolic heart failure, hypertension, HLD and other medical brims below who presents with chest pain beginning last evening. 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 Chest pain at 0215 12/26-->whisked off to terrazzo laborer 12/26 -EKG revealed normal sinus rhythm with sinus arrhythmia. No acute ischemic changes. Chest x-ray without acute process. Initial troponin negative, but turned Pos -Most recent echo from September 2018 with preserved EF of 60%. -Cardiology on case, Stented LAD on 12/26, Echo today, DC 1-2 days -Agitated yesterday, back to baseline today (2) Diabetes mellitus, type II: A1c of 6.4 in June 2018 -Diet controlled -Add SSI coverage if indicated (3) Diastolic heart failure: Appears compensated with euvolemic volume status -Continue home dose lasix -Low sodium diet (4) HTN (hypertension): Continue Lopressor, lisinopril (5) HLD (hyperlipidemia): Intolerant to statins (6) Hypothyroidism: Continue levothyroxine labs checked DVT Ppx: SC heparin Code status: DNR per discussion with patient PCP: Mainali Dispo: Inpatient status. Discharge planning ordered. ROS-No Headache, No Visual Changes, No Nausea, No Vomiting, No Fever, No Chills, No Neck Pain or Stiffness, Pos Chest Pain, No Palpitations, + SOB, No ROLON, No Cough, No Sputum, No Wheezing, No Abdominal Pain, No Diarrhea, No Hematemesis, No Hemoptysis, No Unexpected Weight Loss, No Flank pain, No Melena, No Hematochezia, No Frequency, No Urgency, No Burning, No Hematuria, No Rashes, No Diaphoresis. Appetite is Normal Physical Exam Gen-AAO x 3, NAD, Afebrile Head-NCAT, EOMI, PERRLA, Anicteric Sclera, No Posterior Pharyngeal Erythema Neck-Supple, No JVD, No Thyromegaly, No Masses, No LAD, No Bruits Lungs-Clear to Auscultation Bilaterally, No Rales, No Rhonchi, No Wheezing, No Crepitus Chest-No S4, +S1, +S2, No S3, No Murmurs, No Rubs, No Gallops, No Ectopy Abdomen-Soft, Bowel Sounds Present, Non Tender, Non Distended, No Hepatomegaly, No Splenomegaly, No Palpable Masses, No Rebound, No Rigidity, No Guarding Musculoskeletal-Full Range of Motion Bilaterally, No CVAT Extremities-No Cyanosis, No Clubbing, No Edema Nuero-Cranial Nerves II-XII grossly intact, Motor WNL, DTRs WNL, Strength WNL, Non Focal Psych-Normal Mood Results & Data Vital Signs (Past 12 Hours) Vital Signs Temp Pulse Resp BP BP Pulse Ox 12/27/18 07:47 36.8 C 66 17 112/54 L 92 12/27/18 05:14 36.7 C 72 18 119/72 90 12/27/18 01:40 36.5 C 76 18 138/71 95 Current Diagnoses Hypothyroidism, unspecified (12/25/18) Type 2 diabetes mellitus without complications (12/25/18) Hyperlipidemia, unspecified (12/25/18) Essential (primary) hypertension (12/25/18) Other forms of angina pectoris (12/25/18) Non-ST elevation (NSTEMI) myocardial infarction (12/25/18) Unspecified diastolic (congestive) heart failure (12/25/18) Allergies allopurinol Allergy (Verified 12/25/18 09:59) Unknown amlodipine Allergy (Verified 12/25/18 09:59) Unknown ciprofloxacin [From Cipro] Allergy (Verified 12/25/18 09:59) Unknown nifedipine Allergy (Verified 12/25/18 09:59) Unknown NSAIDS (Non-Steroidal Anti-Inflamma Allergy (Verified 12/25/18 09:59) Unknown oxybutynin [From Ditropan] Allergy (Verified 12/25/18 09:59) Unknown Lborfqo-Huz-Qot Reductase Inhibitor Allergy (Verified 12/25/18 09:59) Unknown sulfamethoxazole [From Bactrim] Adverse Reaction (Verified 12/25/18 09:59) CENTRAL NERVOUS SYSTEM DYSFUNCTION trimethoprim [From Bactrim] Adverse Reaction (Verified 12/25/18 09:59) CENTRAL NERVOUS SYSTEM DYSFUNCTION Height/Weight/Isolation Height 5 ft 1 in Weight 66.7 kg Chemistry 12/25/18 12/26/18 12/27/18 09:15 05:32 06:02 Sodium 139 138 139 Potassium 4.0 4.2 4.0 Chloride 103 105 106 Carbon Dioxide 30 27 27 Anion Gap 6.0 6.0 6.0 BUN 16 15 15 Creatinine 0.89 0.86 0.81 Glucose 123 H 162 H 117 H
[2018-12-27] MEDS: ASPIRIN 81 MG ECTAB PO SCH (09:04)
[2018-12-27] MEDS: METOPROLOL TARTRATE 25 MG TAB PO SCH ×2 (09:04→20:26)
[2018-12-27] MEDS: CLOPIDOGREL BISULFATE 75 MG TAB PO SCH (09:04)
[2018-12-27] MEDS: PANTOprazole 40 MG TAB PO SCH (09:04)
[2018-12-27] MEDS: ATORVASTATIN 20 MG TAB PO SCH (09:04)
[2018-12-27] MEDS: lisinopriL 5 MG TAB PO SCH (09:04)
[2018-12-27] MEDS: POTASSIUM CHLORIDE 10 MEQ TABCR PO SCH (09:04)
[2018-12-27] MEDS: FEXOFENADINE HCL 180 MG TAB PO SCH (09:04)
[2018-12-27] MEDS: CALCIUM 600MG + VIT D 400 IU TAB PO SCH (09:04)
[2018-12-27] MEDS: TOLTERODINE TARTRATE 1 MG TAB PO SCH ×2 (09:04→20:27)
--- NOTE | 2018-12-27 13:08 | Cardiology Progress Note ---
Date of Service December 27, 2018 Assessment & Plan (1) NSTEMI (non-ST elevated myocardial infarction): s/p FRANCIA to LAD on 12/26. Echo today with very subtle hypokinesis of the septum with normal LVEF. EKG with diffuse T wave inversions, this is consistent with evolution of her known ND-stable finding. Continue ASA, clopidogrel, metoprolol, atorvastatin. Increase activity as tolerated. Live independently at the [facility]. May need rehab. (2) HTN (hypertension): (3) HLD (hyperlipidemia): Subjective CC: follow up chest pain Subjective: Patient still lethargic. Denies chest pain. Telemetry reveals SR with occasional PACs in the 70s. Review of Systems Review of Systems: All systems reviewed & are unremarkable except as noted in HPI & below Physical Exam Physical Exam: Temp Pulse Resp BP Pulse Ox 36.4 C L 68 18 104/70 94 12/27/18 12:01 12/27/18 12:01 12/27/18 12:01 12/27/18 12:01 12/27/18 12:01 Constitutional: WD/WN, vitals as above Respiratory: normal respiratory effort, lungs clear to auscultation Cardiovascular: RRR, no murmur, no edema R wrist access site, mild ecchymosis Gastrointestinal (Abdomen): normal bowel sounds, soft, nontender, no hepatosplenomegaly Neurologic: No focal deficits. Results & Data Vital Signs (Past 12 Hours) Vital Signs Temp Pulse Resp BP BP Pulse Ox 12/27/18 12:01 36.4 C L 68 18 104/70 94 12/27/18 07:47 36.8 C 66 17 112/54 L 92 12/27/18 05:14 36.7 C 72 18 119/72 90 12/27/18 01:40 36.5 C 76 18 138/71 95
[2018-12-27] MEDS: LATANOPROST 0.005% OP SOLN 2.5 ML BTL OP SCH (20:26)
[2018-12-27] MEDS: POLYETHYLENE (MIRALAX) 17 GM PACK PO PRN (20:44)
[2018-12-28] MEDS: LEVOTHYROXINE SODIUM 112 MCG TABLET PO SCH (06:10)
[2018-12-28 06:29] LABS: Hematocrit (blood only) 37.9 % (37-47); Hemoglobin 12.9 g/dL (12.0-16.0); Mean Corpuscular Hemoglobin 29.9 pg (25-34); Mean Corpuscular Volume 87.7 fL (80-100); Platelet Count 110 K/uL (130-400); RDW Coefficient of Variation 13.6 % (11.5-14.5); RDW Standard Deviation 43.5 fL (36.4-46.3); Red Blood Count 4.32 M/uL (4.2-5.4); White Blood Count 10.15 K/uL (4.8-10.8)
[2018-12-28 06:54] LABS: BUN Creatinine Ratio 20.4 (10-20); Calcium 9.2 mg/dl (8.5-10.1); Creatinine Clr Calc Pharmacy 41.7 ml/min; Est GFR (African American) 76.9; Est GFR (Non-African American) 66.4; Potassium 4.2 mmol/L (3.5-5.1)
[2018-12-28] MEDS: ASPIRIN 81 MG ECTAB PO SCH (08:44)
[2018-12-28] MEDS: TOLTERODINE TARTRATE 1 MG TAB PO SCH ×2 (08:44→19:35)
[2018-12-28] MEDS: PANTOprazole 40 MG TAB PO SCH (08:44)
[2018-12-28] MEDS: ATORVASTATIN 20 MG TAB PO SCH (08:44)
[2018-12-28] MEDS: CALCIUM 600MG + VIT D 400 IU TAB PO SCH (08:44)
[2018-12-28] MEDS: CLOPIDOGREL BISULFATE 75 MG TAB PO SCH (08:44)
[2018-12-28] MEDS: METOPROLOL TARTRATE 25 MG TAB PO SCH ×3 (08:44→19:35)
[2018-12-28] MEDS: FEXOFENADINE HCL 180 MG TAB PO SCH (08:45)
[2018-12-28] MEDS: POTASSIUM CHLORIDE 10 MEQ TABCR PO SCH (08:45)
[2018-12-28] MEDS: lisinopriL 5 MG TAB PO SCH (08:45)
[2018-12-28] MEDS ORDERED: AMIODARONE IV BOLUS / DRIP IV STA (08:51)
[2018-12-28] MEDS ORDERED: AMIODARONE / D5W 150 MG/100 ML BAG IV ONE (09:05)
[2018-12-28] MEDS ORDERED: AMIODARONE / D5W 360 MG/200 ML BAG IV SCH (09:15)
--- NOTE | 2018-12-28 11:34 | Cardiology Progress Note ---
Date of Service December 28, 2018 Assessment & Plan (1) NSTEMI (non-ST elevated myocardial infarction): (2) HLD (hyperlipidemia): (3) HTN (hypertension): (4) Atrial fibrillation with RVR: Recent non-ST segment elevation myocardial infarction with PCI, drug- eluting stent to the LAD: Continue dual antiplatelet therapy with aspirin and clopidogrel, metoprolol, atorvastatin, lisinopril. Atrial fibrillation: Metoprolol dose increased to 25 mg 3 times daily, IV amiodarone infusion started. Recent transaminases were within normal limits, and TSH. Hold off on systemic anticoagulation for now given her frailty, and need for dual antiplatelet therapy. Continue to observe on telemetry. Developments and recommendations discussed with patient, and son at the bedside, as well as Dr. Ferrer. Subjective Chief Complaint: Follow-up chest discomfort Subjective: Patient is much more alert this morning. She was out of bed in the bedside chair, as her chronic back pain feels better when she is sitting up in the 830 this morning she was noted to go into atrial fibrillation with rapid ventricular response in the range of 150 bpm. Discussed the development with her nurse, and IV amiodarone was initiated and her a.m. dose of metoprolol was administered. Review of Systems Review of Systems: All systems reviewed & are unremarkable except as noted in HPI & below Physical Exam Physical Exam: Temp Pulse Resp BP Pulse Ox 36.5 C 150 H 18 130/79 95 12/28/18 07:17 12/28/18 08:30 12/28/18 07:17 12/28/18 07:17 12/28/18 07:17 Constitutional: WD/WN, vitals as above Respiratory: normal respiratory effort, lungs clear to auscultation Cardiovascular: Rate/Rhythm: + irregularly irregular Heart Sounds: no murmur Extremities: no edema Gastrointestinal (Abdomen): normal bowel sounds, soft, nontender, no hepatosplenomegaly Neurologic: PERRL, EOMI, accommodation nl, no face palsy, no dysarthria
[2018-12-28 12:17] LABS: Thyroid Stimulating Hormone 0.008 uIu/ml (0.300-4.500)
[2018-12-28 12:31] LABS: T4 Free Thyroxine 1.72 ng/dl (0.8-1.6)
--- NOTE | 2018-12-28 15:06 | Hospitalist Progress Note ---
Date of Service December 28, 2018 Assessment & Plan (1) NSTEMI (non-ST elevated myocardial infarction): 88-year-old female with history of CHF, diastolic type, diabetes type 2, hypertension, dyslipidemia presenting with chest pain NON-ST ELEVATION [place], STATUS POST DRUG-ELUTING STENT PLACEMENT TO LAD 12/26/2018 Developed atrial fibrillation in RVR December 28, 2018 Amiodarone IV started Continue aspirin, Plavix, metoprolol, atorvastatin Monitor closely CHRONIC DIASTOLIC CHF Euvolemic HYPERTENSION Stable Continue lisinopril and metoprolol DIABETES TYPE 2 Not on any medications Blood sugar within acceptable range Monitor DVT prophylaxis SCDs for now Ambulate Disposition PT/OT evaluation Lives in a personal senior living Subjective Follow-up for non-ST elevation [place], status post stent Patient developed atrial fibrillation RVR early this morning Amiodarone IV started, heart rate improved Seen resting bedside chair, with family at the bedside visiting Patient comfortable, in good spirits, oriented x3 States she feels fine overall No recurrence of chest pain, shortness of breath, palpitations, dizziness No nausea, abdominal pain No other symptoms Review of Systems Review of Systems: All systems reviewed & are unremarkable except as noted in HPI & below Physical Exam Physical Exam: General- oriented x 3, not in distress, speaks in sentences with no effort or accessory muscle use Head- atraumatic Eyes- PERRL, EOMI, anicteric ENT- oropharynx clear Neck- supple, no JVD, no adenopathy, no thyromegaly; carotids +2/2, no bruits appreciated Lungs- clear to auscultation bilaterally, no rales/wheezes Heart- normal rate, irregularly irregular; no murmur, no gallop, no rub appreciated Abdomen- normal bowel sounds, nondistended, soft, nontender, no masses or hepatosplenomegaly Extremities- no pretibial edema, no calf tenderness; peripheral pulses intact Neuro- alert, oriented x 3; CN 2-12 grossly intact; motor 5/5 bilaterally;sensation 100% on all extremities; no other gross focal neurologic deficits Skin- warm & dry Results & Data Vital Signs (Past 12 Hours) Vital Signs Temp Pulse Pulse Resp BP BP Pulse Ox 12/28/18 11:14 36.5 C 90 18 118/68 94 12/28/18 08:30 150 H 12/28/18 08:00 70 12/28/18 07:17 36.5 C 59 L 18 130/79 95 12/28/18 03:51 36.6 C 69 18 134/79 95 Laboratory Results Laboratory Results - last 24 hr 12/27/18 12/28/18 12/28/18 18:25 05:50 05:50 WBC 10.15 RBC 4.32 Hgb 12.9 Hct 37.9 MCV 87.7 MCH 29.9 MCHC 34.0 RDW Std Deviation 43.5 RDW Coeff of Kamala 13.6 Plt Count 110 L MPV 11.0 H Sodium 140 Potassium 4.2 Chloride 108 H Carbon Dioxide 25 Anion Gap 7.0 BUN 16 Creatinine 0.79 Est Cr Clr Drug Dosing 41.7 Est GFR ( Amer) 76.9 Est GFR (Non-Af Amer) 66.4 BUN/Creatinine Ratio 20.4 H Glucose 127 H Calcium 9.2 Troponin I 2.340 H* TSH Free T4 12/28/18 05:50 WBC RBC Hgb Hct MCV MCH MCHC RDW Std Deviation RDW Coeff of Kamala Plt Count MPV Sodium Potassium Chloride Carbon Dioxide Anion Gap BUN Creatinine Est Cr Clr Drug Dosing Est GFR ( Amer) Est GFR (Non-Af Amer) BUN/Creatinine Ratio Glucose Calcium Troponin I TSH 0.008 L Free T4 1.72 H
[2018-12-28] MEDS: AMIODARONE / D5W 360 MG/200 ML BAG IV SCH (15:17)
[2018-12-28] MEDS: POLYETHYLENE (MIRALAX) 17 GM PACK PO PRN (18:45)
[2018-12-28] MEDS: LATANOPROST 0.005% OP SOLN 2.5 ML BTL OP SCH (19:35)
[2018-12-29] MEDS: AMIODARONE / D5W 360 MG/200 ML BAG IV SCH (03:16)
[2018-12-29] MEDS: LEVOTHYROXINE SODIUM 112 MCG TABLET PO SCH (06:24)
[2018-12-29] MEDS: FEXOFENADINE HCL 180 MG TAB PO SCH (07:39)
[2018-12-29] MEDS: TOLTERODINE TARTRATE 1 MG TAB PO SCH ×2 (07:39→20:38)
[2018-12-29] MEDS: METOPROLOL TARTRATE 25 MG TAB PO SCH ×2 (07:39→20:38)
[2018-12-29] MEDS: CALCIUM 600MG + VIT D 400 IU TAB PO SCH (07:40)
[2018-12-29] MEDS: ASPIRIN 81 MG ECTAB PO SCH (07:40)
[2018-12-29] MEDS: POTASSIUM CHLORIDE 10 MEQ TABCR PO SCH (07:40)
[2018-12-29] MEDS: CLOPIDOGREL BISULFATE 75 MG TAB PO SCH (07:40)
[2018-12-29] MEDS: PANTOprazole 40 MG TAB PO SCH (07:40)
[2018-12-29] MEDS: lisinopriL 5 MG TAB PO SCH (07:40)
[2018-12-29] MEDS: ATORVASTATIN 20 MG TAB PO SCH (07:40)
--- NOTE | 2018-12-29 11:02 | XRay Report ---
XR chest 1V portable HISTORY: 88 years-old Female r/o effusion, PNA acute shortness breath with possible pneumonia COMPARISON: Chest radiograph 12/26/2018, CTA chest 12/25/2018 TECHNIQUE: Portable AP view of the chest FINDINGS: Cardiac silhouette is enlarged, unchanged. Dense mitral annular calcifications. Calcified plaque of t he thoracic aortic arch. Chronic blunting of left costophrenic angle suggestive of scarring/atelectas is. No pneumothorax, definite pleural effusion or overt pulmonary edema. Minimal subsegmental right b asilar opacities. Degenerative changes of the shoulders and spine. IMPRESSION: 1. Minimal bibasilar subsegmental opacities, left greater than right are suggestive of atelectasis wi th pneumonia considered less likely. 2. Unchanged blunting of the left costophrenic angle without definite pleural effusion. 3. Cardiomegaly. The above report was generated using voice recognition software. It may contain grammatical, syntax o r spelling errors. Electronically signed by: Jacob Vivar M.D. 12/29/2018 11:01 AM
--- NOTE | 2018-12-29 11:05 | Cardiology Progress Note ---
Date of Service December 29, 2018 Assessment & Plan (1) Atrial fibrillation with RVR: Patient is reverted back to sinus bradycardia. Reduce metoprolol tartrate from 25 mg 3 times daily back to 25 mg twice daily. Continue IV amiodarone for now. Add oral amiodarone. Patient is 88 years old, and frail, and is now on dual antiplatelet therapy with aspirin and clopidogrel which cannot be interrupted given her recent CA, drug- eluting stent to the LAD. At this time I am going to hold off on systemic anticoagulation due to bleeding risk, but if she has recurrent atrial fibrillation, would likely add Coumadin, and perhaps she could be transition to clopidogrel plus Coumadin after 6 weeks of triple therapy. The patient's EKG this morning at 10 AM revealed sinus bradycardia at 57 bpm with occasional PACs, anterior and lateral T wave inversions noted, consistent with evolution of previously noted myocardial infarction. The corrected QT interval is prolonged at 530 ms, but I think this needs to be interpreted in setting of her deep T wave inversions and I think it is stable. (2) NSTEMI (non-ST elevated myocardial infarction): ASA and plavix at above. Metoprolol, atorvastatin. (3) HTN (hypertension): metoprolol and lisinopril. (4) HLD (hyperlipidemia): continue atorvastatin. Past intolerance however given CA pt aware of priority to try again. (5) Low TSH level: TSH drawn given start of amiodarone for baseline. Low TSH noted of 0.008 IU/L. Patient is on levothyroxine at baseline for thyroid supplementation. I discussed results with Dr Ferrer. Will reduce the patient's levothyroxine dose. Ideally would avoid amiodarone given the low TSH, however I think in this patient the benefits outweigh the risks in the short term. Given recent CA, amiodarone is preferred antiarrhythmic medication, and I think a rhythm control strategy as necessary. Disposition: I have requested an outpatient follow-up visit with me, the patient's primary parking lot attendant and cashier, Dr. Valente, or another provider. Subjective Chief complaint: Follow-up chest discomfort Subjective: Patient sitting the bedside chair. Her son, Hiram, is keeping her company. She is mentating well. Back pain and chest pain have resolved. Onset of atrial fibrillation detected on telemetry on 12/28/2018 at 8:30 AM. She had been placed on IV amiodarone and converted back to sinus rhythm early this morning, 12/29/2018 at 2:28 AM. Review of Systems Review of Systems: All systems reviewed & are unremarkable except as noted in HPI & below Physical Exam Physical Exam: Temp Pulse Resp BP Pulse Ox 36.3 C L 60 18 146/89 H 95 12/29/18 07:38 12/29/18 07:38 12/29/18 07:38 12/29/18 07:38 12/29/18 07:38 Constitutional: WD/WN, vitals as above Respiratory: normal respiratory effort, lungs clear to auscultation Cardiovascular: RRR, no murmur, no edema Vessels: no JVD Extremities: no edema Gastrointestinal (Abdomen): normal bowel sounds, soft, nontender, no hepatosplenomegaly Skin: Mild ecchymosis over right radial artery procedure access site, stable Neurologic: patellar DTR's 2+ bilat, sensation intact Results & Data Vital Signs (Past 12 Hours) Vital Signs Temp Pulse Resp BP Pulse Ox 12/29/18 07:38 36.3 C L 60 18 146/89 H 95 12/29/18 03:34 36.4 C L 58 L 16 106/56 L 96 12/28/18 23:25 36.8 C 95 H 16 118/80 95 Laboratory Results Intake and Output 12/28/18 12/29/18 12/29/18 22:59 06:59 14:59 Intake Total 200 / 1020 300 / 1020 Balance 200 / 1020 300 / 1020 Intake: IV 200 / 500 200 / 500 NEXTERONE / D5W 360 mg In 200 200 / 400 200 / 400 ml @ 0.5 MG/MIN 16.667 mls/hr IV .Q12H [facility] Rx#:[id number] Oral 100 / 520 Other: # Unmeasured Voids 2 Weight 65.9 kg
[2018-12-29] MEDS ORDERED: AMIODARONE 200 MG TAB PO ONE (11:31)
--- NOTE | 2018-12-29 16:05 | Hospitalist Progress Note ---
Date of Service December 29, 2018 Assessment & Plan (1) NSTEMI (non-ST elevated myocardial infarction): 88-year-old female with history of CHF, diastolic type, diabetes type 2, hypertension, dyslipidemia presenting with chest pain NON-ST ELEVATION [place], STATUS POST DRUG-ELUTING STENT PLACEMENT TO LAD 12/26/2018 Developed atrial fibrillation in RVR December 28, 2018 Amiodarone IV started, converted to sinus rhythm, now being transitioned to p.o. amiodarone Continue aspirin, Plavix, metoprolol, atorvastatin Monitor closely ATRIAL FIBRILLATION Management per #1 CHRONIC DIASTOLIC CHF Euvolemic HYPERTENSION Stable Continue lisinopril and metoprolol DIABETES TYPE 2 Not on any medications Blood sugar within acceptable range Monitor HYPOTHYROIDISM TSH 0.008 T4 1.72 Reduce levothyroxine from 112 mcg to 50 mcg Repeat thyroid function test in 3 to 4 weeks DYSPHAGIA Speech therapy evaluation DVT prophylaxis SCDs for now Ambulate Disposition PT/OT evaluation Lives in a personal residential Subjective Follow-up for NSTEMI, atrial fibrillation Seen sitting up in bedside chair, comfortable, in good spirits States she ambulated today in the hallways with minimal shortness of breath Denies cough No chest pain, dizziness, palpitations No other symptoms Review of Systems Review of Systems: All systems reviewed & are unremarkable except as noted in HPI & below Physical Exam Physical Exam: General- oriented x 3, not in distress, speaks in sentences with no effort or accessory muscle use Eyes- anicteric Neck- no JVD Lungs- mild rales at the left base clear on the right Heart- normal rate, regular rhythm; no murmurs Abdomen- normal bowel sounds, nondistended, soft, nontender Extremities- no pretibial edema, no calf tenderness Neuro- alert, oriented x 3; no gross focal neurologic deficits Skin- warm & dry Results & Data Vital Signs (Past 12 Hours) Vital Signs Temp Pulse Pulse Resp BP BP Pulse Ox 12/29/18 15:24 36.3 C L 62 18 127/78 95 12/29/18 15:02 56 L 12/29/18 11:27 36.5 C 58 L 18 110/64 96 12/29/18 08:00 55 L 12/29/18 07:38 36.3 C L 60 18 146/89 H 95
[2018-12-29] MEDS: AMIODARONE 200 MG TAB PO SCH (17:30)
[2018-12-29] MEDS: LATANOPROST 0.005% OP SOLN 2.5 ML BTL OP SCH (20:39)
[2018-12-30 06:29] LABS: Basophils # (auto) 0.02 K/uL (0-0.2); Basophils % (auto) 0.2 %; Eosinophils # (auto) 0.14 K/uL (0-0.5); Eosinophils % (auto) 1.7 %; Hematocrit (blood only) 36.7 % (37-47); Hemoglobin 12.3 g/dL (12.0-16.0); Immature Granulocytes # (auto) 0.02 K/uL (0.00-0.02); Immature Granulocytes % (auto) 0.2 %; Lymphocytes # (auto) 1.61 K/uL (1.2-3.4); Lymphocytes % (auto) 19.4 %; Mean Corpuscular Hemoglobin 29.4 pg (25-34); Mean Corpuscular Hgb Conc 33.5 g/dL (32-36); Mean Corpuscular Volume 87.8 fL (80-100); Mean Platelet Volume 11.4 fL (7.4-10.4); Monocytes # (auto) 0.97 K/uL (0.11-0.59); Monocytes % (auto) 11.7 %; Neutrophils # (auto) 5.55 K/uL (1.4-6.5); Neutrophils % (auto) 66.8 %; Platelet Count 125 K/uL (130-400); RDW Coefficient of Variation 13.7 % (11.5-14.5); RDW Standard Deviation 43.6 fL (36.4-46.3); Red Blood Count 4.18 M/uL (4.2-5.4); White Blood Count 8.31 K/uL (4.8-10.8)
[2018-12-30] MEDS ORDERED: LEVOTHYROXINE SODIUM 50 MCG TABLET PO SCH (06:30)
[2018-12-30 07:05] LABS: BUN Creatinine Ratio 15.4 (10-20); Calcium 9.2 mg/dl (8.5-10.1); Creatinine Clr Calc Pharmacy 35.4 ml/min; Est GFR (African American) 62.3; Est GFR (Non-African American) 53.8; Potassium 4.1 mmol/L (3.5-5.1)
[2018-12-30] MEDS: FEXOFENADINE HCL 180 MG TAB PO SCH (08:14)
[2018-12-30] MEDS: AMIODARONE 200 MG TAB PO SCH (08:15)
[2018-12-30] MEDS: CALCIUM 600MG + VIT D 400 IU TAB PO SCH (08:15)
[2018-12-30] MEDS: TOLTERODINE TARTRATE 1 MG TAB PO SCH (08:15)
[2018-12-30] MEDS: ATORVASTATIN 20 MG TAB PO SCH (08:15)
[2018-12-30] MEDS: ASPIRIN 81 MG ECTAB PO SCH (08:15)
[2018-12-30] MEDS: POTASSIUM CHLORIDE 10 MEQ TABCR PO SCH (08:15)
[2018-12-30] MEDS: lisinopriL 5 MG TAB PO SCH (08:16)
[2018-12-30] MEDS: CLOPIDOGREL BISULFATE 75 MG TAB PO SCH (08:16)
[2018-12-30] MEDS: PANTOprazole 40 MG TAB PO SCH (08:16)
[2018-12-30] MEDS: METOPROLOL TARTRATE 25 MG TAB PO SCH (08:16)
--- NOTE | 2018-12-30 10:40 | Cardiology Progress Note ---
Date of Service December 30, 2018 Assessment & Plan (1) Atrial fibrillation with RVR: Patient remains sinus bradycardia overnight. Continue amiodarone and metoprolol. Repeat ECG demonstrates normalization of QT interval. Continue dual antiplatelet therapy at this time. Consideration for anticoagulation if patient demonstrates recurrent episodes of atrial fibrillation despite antiarrhythmic therapy. (2) NSTEMI (non-ST elevated myocardial infarction): Continue dual antiplatelet therapy for a minimum of 6 months uninterrupted. Metoprolol and atorvastatin will be continued as previously ordered. (3) HTN (hypertension): Controlled, continue current medications. (4) HLD (hyperlipidemia): Documented history of statin intolerance. Currently tolerating atorvastatin. (5) Low TSH level: Levothyroxine dose reduced. Repeat TSH in 4 to 6 weeks. Disposition: Patient appears stable from a cardiovascular perspective. No recurrent angina or dysrhythmia per telemetry review. She may be discharged on current medications noted above. Outpatient cardiology follow-up in [address] Valente. Subjective Patient seen and examined at the bedside. Her son, Mp Blue, is present. Patient denies chest pain or unusual shortness of breath overnight. Remains in sinus rhythm. Repeat ECG demonstrates normal QT interval. Denies orthopnea, PND, or lower extremity edema. Notes mild tenderness of her left upper extremity in the region of her prior IV site. There is no ecchymosis or hematoma. Mild ecchymosis of the right anterior wrist noted without hematoma. Patient denies palpitations, lightheadedness, or dizziness. Son has questions regarding current medications and follow-up appointments. He offers no other concerns/complaints this time. Review of Systems Review of Systems: All systems reviewed & are unremarkable except as noted in HPI & below Physical Exam Physical Exam: General: NAD, AAO x3, well nourished. HEENT: Normocephalic. Atraumatic. Conjunctiva pink, no scleral icterus. Neck: No carotid bruits, the carotid upstrokes are brisk. No JVD. No HJR Heart: Regular normal S-1 and S-2 no S-3 or S-4 gallop. No murmurs or rub appreciated. PMI is not displaced. No RV heave. Lungs: Clear bilateral without rales , rhonchi, or wheeze. Abdomen: Normal bowel sounds. Soft. Nontender. No masses or organomegaly. No abdominal bruits. Extremities: + Right anterior wrist ecchymosis without hematoma. No clubbing, cyanosis, or edema. Pulses: radial=2/4, Dorsalis pedis =2/4, posterior tibial=2/4. Neuro: Cranial nerves grossly intact. No focal motor deficit. Results & Data Vital Signs (Past 12 Hours) Vital Signs Temp Pulse Pulse Resp BP Pulse Ox 12/30/18 08:00 36.3 C L 61 62 18 107/58 L 98 12/30/18 04:07 36.3 C L 65 20 149/76 H 95 12/29/18 23:20 37.0 C 60 16 117/64 98 Laboratory Results Laboratory Results - last 24 hr 12/30/18 12/30/18 05:45 05:45 WBC 8.31 RBC 4.18 L Hgb 12.3 Hct 36.7 L MCV 87.8 MCH 29.4 MCHC 33.5 RDW Std Deviation 43.6 RDW Coeff of Kamala 13.7 Plt Count 125 L MPV 11.4 H Immature Gran % (Auto) 0.2 Neut % (Auto) 66.8 Lymph % (Auto) 19.4 Mcintosh % (Auto) 11.7 Eos % (Auto) 1.7 Baso % (Auto) 0.2 Immature Gran # (Auto) 0.02 Neut # (Auto) 5.55 Lymph # (Auto) 1.61 Mcintosh # (Auto) 0.97 H Eos # (Auto) 0.14 Baso # (Auto) 0.02 Sodium 137 Potassium 4.1 Chloride 105 Carbon Dioxide 28 Anion Gap 4.0 BUN 15 Creatinine 0.94 Est Cr Clr Drug Dosing 35.4 Est GFR ( Amer) 62.3 Est GFR (Non-Af Amer) 53.8 BUN/Creatinine Ratio 15.4 Glucose 118 H Calcium 9.2
--- NOTE | 2018-12-30 11:26 | Hospitalist Progress Note ---
Date of Service December 30, 2018 Assessment & Plan (1) NSTEMI (non-ST elevated myocardial infarction): 88-year-old female with history of CHF, diastolic type, diabetes type 2, hypertension, dyslipidemia presenting with chest pain NON-ST ELEVATION MYOCARDIAL INFARCTION STATUS POST DRUG-ELUTING STENT PLACEMENT TO LAD 12/26/2018 Developed atrial fibrillation in RVR December 28, 2018 Amiodarone IV started, converted to sinus rhythm, transitioned to p.o. amiodarone Continue on aspirin, Plavix, metoprolol, atorvastatin ff up with [employer] in 2 weeks (Colchicine discontinued due to interaction to Amiodarone) ATRIAL FIBRILLATION Management per #1 CHRONIC DIASTOLIC CHF Euvolemic Lasix changed to PRN HYPERTENSION Stable Continue lisinopril and metoprolol DIABETES TYPE 2 Not on any medications Blood sugar within acceptable range Monitor HYPOTHYROIDISM TSH 0.008 T4 1.72 Reduce levothyroxine from 112 mcg to 50 mcg Repeat thyroid function test in 3 to 4 weeks Disposition d/c home ff up with PCP this coming week ff up with [employer] in 2 weeks Subjective ff up for NSTEMI seen resting in bed, comfortable in SR no chest pain, palpitations, dizziness no other symptoms states she is ready and would like to be discharged patient's son agreeable Review of Systems Review of Systems: All systems reviewed & are unremarkable except as noted in HPI & below Physical Exam Physical Exam: General- oriented x 3, not in distress, speaks in sentences with no effort or accessory muscle use Eyes- anicteric Neck- no JVD Lungs- clear BS BL no rales Heart- normal rate, regular rhythm; no murmurs Abdomen- normal bowel sounds, nondistended, soft, nontender Extremities- no pretibial edema, no calf tenderness Neuro- alert, oriented x 3; no gross focal neurologic deficits Skin- warm & dry Results & Data Vital Signs (Past 12 Hours) Vital Signs Temp Pulse Pulse Resp BP Pulse Ox 12/30/18 08:00 36.3 C L 61 62 18 107/58 L 98 12/30/18 04:07 36.3 C L 65 20 149/76 H 95
--- NOTE | 2018-12-30 18:02 | Discharge Summary ---
Date of Service December 30, 2018 Admission HPI Per Admitting Provider This is an 88-year-old female with past medical history of type 2 diabetes, diastolic heart failure, hypertension, HLD and other medical brims below who presents with chest pain beginning last evening. States that she woke up during the night with chest pain in a bandlike distribution across chest and back/shoulders. Pain resolved and she was able to go back to sleep. When she woke up today and ambulated to bathroom, chest pain returned and she described it as heavy central chest pain with radiation to left and right side of chest and pain in shoulders. Exacerbated by movement and exertion. No associated shortness of breath, diaphoresis, nausea or vomiting. Since arrival in the ED, patient was given full dose aspirin and 1 inch of Nitropaste. No longer experiencing chest pain. Patient states she experienced intermittent angina years ago and this feels very similar. Follows with Dr. Valente of cardiology service for diastolic heart failure. Noticed more bilateral lower extremity swelling last month and Dr. Staples started patient on 20 mg of Lasix daily with improvement to edema. Denies fever, chills, lightheadedness, headache, visual changes, palpitations, shortness of breath, nausea, vomiting, abdominal pain, dysuria, diarrhea or constipation. EKG reveals normal sinus rhythm with sinus arrhythmia. No acute ischemic changes. Chest x-ray without acute process. Initial troponin neg ative. Most recent echo from September 2018 with preserved EF of 60%. Admission Exam Per Admitting Provider General Appearance: WD/WN, vitals as above, NAD, sitting up in bed, pleasant, conversing easily Head: normocephalic, atraumatic Eyes: normal inspection, PERRL, conjunctivae normal, anicteric sclerae ENT: external ear and nose normal, oropharynx normal Neck: trachea midline, no thyromegaly normal visual inspection Respiratory: lungs clear to auscultation, no wheeze, rales, rhonchi. Normal insp/exp effort, no accessory muscle use Cardiovascular: regular rate, rhythm, no murmur appreciated, normal peripheral pulses, no BLE edema. Vessels: no JVD or carotid bruit Chest: normal inspection of chest Abdomen/GI: normal bowel sounds, soft, nontender, no hepatosplenomegaly Extremities/Musculoskelatal: no cyanosis or clubbing, extremities motor strength 5/5 Neurologic: PERRL, EOMI, accommodation nl, no face palsy, no dysarthria CN's II-XI intact bilaterally and moves all extremities Psychiatric: A+Ox3, euthymic affect Skin: no rashes, normal color, warm/dry Principal Diagnosis NON ST ELEVATION MYOCARDIAL INFARCTION Discharge Exam General- oriented x 3, not in distress, speaks in sentences with no effort or accessory muscle use Eyes- anicteric Neck- no JVD Lungs- clear BS BL no rales Heart- normal rate, regular rhythm; no murmurs Abdomen- normal bowel sounds, nondistended, soft, nontender Extremities- no pretibial edema, no calf tenderness Neuro- alert, oriented x 3; no gross focal neurologic deficits Skin- warm & dry Discharge Data Allergies Allergy/AdvReac Type Severity Reaction Status Date / Time allopurinol Allergy Unknown Verified 12/25/18 09:59 amlodipine Allergy Unknown Verified 12/25/18 09:59 ciprofloxacin [From Cipro] Allergy Unknown Verified 12/25/18 09:59 nifedipine Allergy Unknown Verified 12/25/18 09:59 NSAIDS (Non-Steroidal Allergy Unknown Verified 12/25/18 09:59 Anti-Inflamma oxybutynin [From Ditropan] Allergy Unknown Verified 12/25/18 09:59 Ffqqwas-Tak-Uld Reductase Allergy Unknown Verified 12/25/18 09:59 Inhibitor sulfamethoxazole AdvReac CENTRAL Verified 12/25/18 09:59 [From Bactrim] NERVOUS SYSTEM DYSFUNCTION trimethoprim [From Bactrim] AdvReac CENTRAL Verified 12/25/18 09:59 NERVOUS SYSTEM DYSFUNCTION Consultations 12/25/18 10:30 ED Decision to Admit Stat 12/25/18 12:41 Consult Cardiology Routine 12/25/18 17:37 Consult Case Management - Discharge Planning Routine 12/27/18 13:36 Consult Case Management - Discharge Planning Routine Procedures Performed Operation Date: 12/26/18 06:30 Actual Procedures p Cath, Coronaries ONLY (no LV) - Jose L Saavedra MD s Aspiration/PCI w/FRANCIA for Stemi - Jose L Saavedra MD s Cineradiography w/Routine Exam - Jose L Saavedra MD Ordered Studies 12/25/18 14:18 CT angio chest PE protocol Stat 12/26/18 06:25 CL Cath Imgs for PACS use only Stat Summary: 1. Severe single-vessel coronary artery disease -95+% earlymid LAD 30% ostial circumflex 50% small right PDA 2. Successful PCI of mid LAD with single drug-eluting stent (2.75 x 28 mm Xience Fabiola). Hospital Course (1) NSTEMI (non-ST elevated myocardial infarction): 88-year-old female with history of CHF, diastolic type, diabetes type 2, hypertension, dyslipidemia presenting with chest pain NON-ST ELEVATION MYOCARDIAL INFARCTION STATUS POST DRUG-ELUTING STENT PLACEMENT TO LAD 12/26/2018 Developed atrial fibrillation in RVR December 28, 2018 Amiodarone IV started, converted to sinus rhythm, transitioned to p.o. amiodarone Continue minimum of 6 months dual antiplatelet therapy with aspirin, Plavix Continue metoprolol, atorvastatin ff up with [facility] Dr. Valente in 2 weeks (Colchicine discontinued due to interaction to Amiodarone) ATRIAL FIBRILLATION Management per #1 CHRONIC DIASTOLIC CHF Euvolemic Lasix changed to PRN HYPERTENSION Stable Continue lisinopril and metoprolol DIABETES TYPE 2 Not on any medications Blood sugar within acceptable range Monitor HYPOTHYROIDISM TSH 0.008 T4 1.72 Reduce levothyroxine from 112 mcg to 50 mcg Repeat thyroid function test in 3 to 4 weeks Disposition d/c home ff up with PCP this coming week ff up with [facility] in 2 weeks Total Time Total Time Spent Total Time Spent (In Minutes): 45 mins Discharge Plan Discharge Items Patient Disposition: Home - Self-Care Reason For Visit: CHEST PAIN Discharge Diagnosis: NON ST ELEVATION MYOCARDIAL INFARCTION, ATRIAL FIBRILLATION Condition on Discharge: Good Activity: As commented below Activity Comment: NO HEAVY EXERTION, ALWAYS AMBULATE CAREFULLY Lifting: Wait until after follow-up appointment Exercise/Sports: Wait until after follow-up appointment Driving/Machine Use: NO DRIVING Non-emergency contact: Primary Care Provider Call non-emergency contact if: you have any medication questions and you have a fever Follow-up/Referrals: Ricky Duncan DO [[facility]] - Ananya Staples MD [Primary Care Provider] - Diet: Heart Healthy Addtl Attending Provider Instructions: PLEASE REVIEW YOUR NEW MEDICATION LIST AND FOLLOW INSTRUCTIONS CAREFULLY. FOLLOW UP WITH PRIMARY CARE PHYSICIAN IN 3-5 DAYS. FOLLOW UP WITH AUTHORIZATION REP IN 2 WEEKS. THE CLINIC WILL BE CALLING YOU FOR THE APPOINTMENT SCHEDULE. CALL 911 IMMEDIATELY IF WITH RECURRENCE OF CHEST PAIN, NOT RELIEVED BY NITROGLYCERIN TABLET. Pending Studies at Discharge: No Stand-Alone Forms: My [facility] Medications and DC Order Prescriptions: New atorvastatin 20 mg Tablet 20 mg PO QAM 30 Days Qty: 30 RF: 2 amiodarone 200 mg Tablet 200 mg PO BIDM 30 Days Qty: 60 RF: 2 clopidogrel 75 mg Tablet 75 mg PO QAM 30 Days Qty: 30 RF: 2 metoprolol tartrate 25 mg Tablet 25 mg PO BID 30 Days Qty: 60 RF: 2 nitroglycerin [Nitrostat] 0.4 mg Tablet, Sublingual 0.4 mg sublingual PRN PRN (Reason: chest pain) Qty: 14 RF: 0 levothyroxine [Synthroid] 50 mcg Tablet 50 mcg PO DAILYBB 30 Days Qty: 30 RF: 2 Continued polyethylene glycol 3350 [Miralax] 17 gram Powder In Packet 8.5 - 17 g PO QAM RF: 0 fexofenadine [Pamela Allergy] 180 mg Tablet 180 mg PO QAM RF: 0 aspirin [Aspir-81] 81 mg Tablet,Delayed Release (Dr/Ec) 81 mg PO QAM RF: 0 triamcinolone acetonide 0.025 % Cream 1 applic TOPICAL BID PRN (Reason: APPLY TO BACK & NECK) RF: 0 hydrocortisone 1 % Cream 1 applic VA UD PRN (Reason: AFTER EACH BM) RF: 0 cranberry 400 mg Capsule 2,400 mg PO QAM RF: 0 omeprazole 20 mg capsule,delayed release(DR/EC) 20 mg PO QAM RF: 0 fluocinonide 0.05 % solution 1 applic topical BID PRN (Reason: SCALP) RF: 0 Rachelle-C with Bioflavonoids 500-200 mg Tablet 1 tab PO UD RF: 0 darifenacin [Enablex] 15 mg tablet extended release 24 hr 15 mg PO QAM RF: 0 Tucks (witch phi) 50 % Pads, Medicated 1 pad TOPICAL BID PRN (Reason: Hemorrhoids) RF: 0 latanoprost 0.005 % drops 1 drp ophthalmic (eye) HS RF: 0 calcium carbonate-vitamin D3 [Calcium 600 + D(3)] 600 mg(1,500mg) -400 unit Tablet 1 tab PO QAM RF: 0 lisinopril 5 mg tablet 5 mg PO DAILY RF: 0 Changed furosemide 20 mg tablet 20 mg PO QAM PRN (Reason: edema) Qty: 0 RF: 0 Discontinued potassium chloride [Klor-Con 10] 10 mEq tablet extended release 10 meq PO QAM RF: 0 colchicine [Colcrys] 0.6 mg Tablet 0.6 mg PO DAILY PRN (Reason: gout) RF: 0 levothyroxine [Synthroid] 112 mcg tablet 112 mcg PO DAILYBB RF: 0 metoprolol tartrate 25 mg tablet 12.5 mg PO BID RF: 0 Discharge Orders: Discharge Order (Routine); Ordered 12/30/18 Ordered By: Gurdeep Ferrer Admission Data Admit Date/Time: 12/25/18 17:37 Attending Provider: Gurdeep Ferrer Admit Provider: Luis Alfredo Parmar Primary Care Provider: Ananya Staples Other Providers: Luis Alfredo Parmar ; Horace Luna Other Interventions: Discharge Summary Assessment (RN) Last Done: 12/30/18 11:50 DC Date/Time DO NOT enter until pt leaves facility: 12/30/18 12:25
== END 2018-12-30 12:25 | disposition home or self-care (01) | DRG 247 ==
LOC: 2S 09:00 → ED 09:00 → 2S 11:54 → SUATTDRO 17:37 → 2S 12-26 21:46
PROC: CLB.CCO (2018-12-26 06:30)
DX: I21.4 Non-ST elevation (NSTEMI) myocardial infarction; I50.32 Chronic diastolic (congestive) heart failure; Z79.82 Long term (current) use of aspirin; I20.8 Other forms of angina pectoris; Z88.1 Allergy status to other antibiotic agents; I11.0 Hypertensive heart disease with heart failure; E78.5 Hyperlipidemia, unspecified; E11.9 Type 2 diabetes mellitus without complications; E03.9 Hypothyroidism, unspecified; Z88.2 Allergy status to sulfonamides; Z90.49 Acquired absence of other specified parts of digestive tract; Z87.891 Personal history of nicotine dependence; Z66 Do not resuscitate; Z96.643 Presence of artificial hip joint, bilateral

== ENCOUNTER 2019-01-03 20:23 | Observation (INO) ==
[2019-01-03 21:02] LABS: Basophils # (auto) 0.02 K/uL (0-0.2); Basophils % (auto) 0.3 %; Eosinophils # (auto) 0.19 K/uL (0-0.5); Eosinophils % (auto) 2.5 %; Hemoglobin 12.5 g/dL (12.0-16.0); Immature Granulocytes # (auto) 0.02 K/uL (0.00-0.02); Immature Granulocytes % (auto) 0.3 %; Mean Corpuscular Hemoglobin 29.3 pg (25-34); Mean Corpuscular Hgb Conc 33.8 g/dL (32-36); Mean Corpuscular Volume 86.7 fL (80-100); Mean Platelet Volume 11.2 fL (7.4-10.4); Monocytes # (auto) 1.03 K/uL (0.11-0.59); Monocytes % (auto) 13.5 %; Neutrophils # (auto) 4.76 K/uL (1.4-6.5); Neutrophils % (auto) 62.4 %; Platelet Count 175 K/uL (130-400); RDW Coefficient of Variation 13.9 % (11.5-14.5); RDW Standard Deviation 43.3 fL (36.4-46.3); Red Blood Count 4.27 M/uL (4.2-5.4); White Blood Count 7.62 K/uL (4.8-10.8)
--- NOTE | 2019-01-03 21:20 | XRay Report ---
SINGLE VIEW CHEST CLINICAL HISTORY: Atypical chest pain. FINDINGS: An AP, portable, upright chest radiograph is compared to study dated 12/29/2018 and correlat ed with chest CT dated 12/25/2018. The examination is degraded by portable technique and patient rotat ion. The heart is enlarged noting atherosclerotic calcification of the thoracic aorta. The pulmonary vasculature is noncongested. Bibasilar atelectasis is noted. There is no airspace consolidation or la rge pleural effusion. No pneumothorax is seen. The skeletal structures are osteopenic. The bony thora x is grossly intact. Degenerative changes noted in the shoulders and thoracic spine. IMPRESSION: Cardiomegaly with no acute cardiopulmonary abnormality. Electronically signed by: [place]oacano Joseph M.D. 01/03/2019 9:19 PM
[2019-01-03 21:21] LABS: INR 1.1 (0.9-1.1); Partial Thromboplastin Ratio 0.9; Partial Thromboplastin Time 25.1 Seconds (21.0-31.0); Prothrombin Time 11.5 Seconds (9.0-12.0)
[2019-01-03 21:53] LABS: BUN Creatinine Ratio 11.9 (10-20); Blood Urea Nitrogen 14 mg/dl (7-18); Calcium 9.6 mg/dl (8.5-10.1); Carbon Dioxide 24 mmol/L (21-32); Chloride 105 mmol/L (98-107); Est GFR (African American) 48.3; Est GFR (Non-African American) 41.7; Glucose 117 mg/dl (70-99); Lipase 85 U/L (73-393); Potassium 3.7 mmol/L (3.5-5.1); Sodium 136 mmol/L (136-145)
[2019-01-03 22:17] LABS: Troponin I 0.059 ng/ml (0-0.045)
[2019-01-03] MEDS ORDERED: HEPARIN SODIUM/DEXTROSE 25,000 UNITS/500 ML BAG IV SCH (22:45)
[2019-01-03] MEDS ORDERED: HEPARIN SOD 5,000 UNIT/0.5 ML VIAL ONE (22:55)
[2019-01-04] MEDS ORDERED: OPTIRAY 320 125ml IV PRN (00:17)
[2019-01-04] MEDS ORDERED: ACETAMINOPHEN 325 MG TAB PO PRN (00:28)
[2019-01-04] MEDS ORDERED: TRIAMCINOLONE ACET 0.025% CR 15 GM TUBE TOP PRN (00:28)
[2019-01-04] MEDS ORDERED: NITROGLYCERIN SL 0.4 MG/TAB TAB SL PRN ×2 (00:28)
[2019-01-04] MEDS ORDERED: FUROSEMIDE 20 MG TAB PO PRN (00:28)
[2019-01-04] MEDS ORDERED: ONDANSETRON INJ 2 MG/ML 2 ML VIAL IV PRN (00:28)
[2019-01-04] MEDS ORDERED: HYDROCORTISONE 2.5% CR 30 GM TUBE EXT PRN (00:28)
[2019-01-04] MEDS ORDERED: NON-FORMULARY MEDICATION (Ascorbate Calcium-Bioflavonoid [Ester-C With Bioflavonoids] 1 TA PO SCH (00:28)
--- NOTE | 2019-01-04 00:29 | History and Physical Report ---
DATE OF ADMISSION: 01/03/2019 CHIEF COMPLAINT: Shortness of breath. HISTORY OF PRESENT ILLNESS: This is an 88-year-old female with a past medical history significant for type 2 diabetes, diastolic heart failure, hypertension, hyperlipidemia, atrial fibrillation and hypothyroidism who was recently in the hospital who was admitted on 12/25/2018 and discharged on 12/30/2018. At that time, she had a non-ST elevated myocardial infarction, status post drug-eluting stent to left anterior descending and during the hospitalization, she developed atrial fibrillation for which she was started on amiodarone and was discharged. The patient lives alone. She is generally weak lately and was getting better and her appetite has been improving. She is resting mostly, not doing much activity, but when she ambulates, she does not get any chest pain or shortness of breath .She cannot lie flat on her back , she sleeps sideways.Today evening, she suddenly felt short of breath, felt like she could not take deep breath. She called her son and then he brought her here. She still feels short of breath and cannot takes deep breaths. She is saturating fine on room air, hemodynamically stable. Denies any chest pain, but she has dry cough for last 3 days. Denies any fever or chills. No sweating. No headache. No dizziness. No blurred vision. No sore throat. No nausea. No abdominal pain. Normal bowel and bladder movements. No swelling in the legs. ALLERGIES: ALLOPURINOL, AMLODIPINE, CIPROFLOXACIN, NIFEDIPINE, NSAIDs OXYBUTYNIN, STATINS, HMG-COA REDUCTASE INHIBITORS AND BACTRIM. PAST MEDICAL HISTORY: As mentioned above. PAST SURGICAL HISTORY: Status post cardiac catheterization, history of partial colectomy, history of partial hysterectomy and history of bilateral hip replacements. MEDICATIONS: atorvastatin 20 mg q.a.m., amiodarone 200 mg p.o. b.i.d., Plavix 75 mg p.o. a.m., metoprolol 25 mg p.o. b.i.d., nitroglycerin 0.4 mg sublingual p.r.n., levothyroxine 50 mcg p.o. daily, MiraLax 17 g p.o. daily in a.m., fexofenadine 180 mg p.o. a.m., aspirin 81 mg p.o. a.m., triamcinolone 0.025% cream topically b.i.d. p.r.n., hydrocortisone 1% cream application p.r.n., cranberry 2400 mg p.o. a.m., omeprazole 20 mg q.a.m., fluocinonide 0.05 solution topical b.i.d. p.r.n., ekaterina c with bioflavonoids 500/200 mg tablet one tablet, Enablex 15 mg extended release p.o. a.m., latanoprost 0.05% ophthalmic solution at bedtime, calcium plus vitamin D 1 tablet daily in a.m. and lisinopril 5 mg daily. FAMILY HISTORY: Noncontributory. SOCIAL HISTORY: Former smoker. No alcohol use. Lives at personal care facility. REVIEW OF SYMPTOMS: As per HPI. Rest of review of systems negative. PHYSICAL EXAMINATION: GENERAL: The patient is old and frail, not in acute distress. VITAL SIGNS: Temperature 36.5, pulse 54, respiratory rate 19, blood pressure 145/97 and oxygen 97% on room air. HEENT: No pallor. No icterus. Pupils are equal, round and reactive to light. NECK: No JVD. No neck masses. No carotid bruits. CARDIOVASCULAR: S1, S2 heard. Bradycardia. No murmurs. RESPIRATORY SYSTEM: Normal AP diameter. No accessory muscle use. No wheezing. No crackles. ABDOMEN: Soft. Bowel sounds present. Nontender. No distention. CENTRAL NERVOUS SYSTEM: Cranial nerves II through XII grossly intact. Nonfocal. EXTREMITIES: No edema. No erythema. LABORATORY DATA: WBC 7.6, hemoglobin 12.5, hematocrit 37 and platelets 175. PT 11.5, INR 1.1 and APTT 25.1. Sodium 136, potassium 3.7, chloride 105, bicarbonate 24, BUN 40, creatinine 1.16, serum glucose 117 and calcium 9.6. Troponin I less than 0.059 and lipase 85. Chest x-ray, cardiomegaly with no acute cardiopulmonary abnormalities. Electrocardiogram, sinus bradycardia, rate of 15, no significant change from previous electrocardiogram. ASSESSMENT AND PLAN: This is an 88-year-old female who presents with shortness of breath. 1. Shortness of breath, recent non-ST elevated myocardial infarction, status post stent to the left anterior descending. The patient also had cough in last 3 days. We will get a CT chest to rule out pulmonary embolism or pneumonia. Troponin is mildly elevated at 0.05, but her troponin at discharge was 2, but because of recent history, we will do serial cardiac enzymes, echocardiogram and will follow the CAT scan and monitor on tele floor and consult cardiology in a.m. Emergency Room physician started on I.V. heparin which we will continue for now until seen by cardiology.NPO for now. 2. History of atrial fibrillation, on Lopressor and amiodarone, currently bradycardia. We will monitor. 3. Chronic diastolic congestive heart failure, seems euvolemic, on Lasix p.r.n. 4. Type 2 diabetes, not on medication. Monitor blood sugars. 5. Hypothyroidism. Continue Synthroid. Synthroid dose was reduced from 112 to 50 mcg on last admission. Needs to follow up with thyroid profile. 6. Deep venous thrombosis prophylaxis, started on I.V. heparin. 7. Disposition, admit to observation tele floor. Expect discharge home and follow with his family doctor and cardiology. Level 1 full code only if there is chance of recovery. Son states that last admission, during cardiac catheterization, she had reaction to medication. She was hallucinating. He is requesting to avoid that medication in case she goes to cardiac catheterization. RENEED
[2019-01-04] MEDS ORDERED: WITCH HAZEL/GLYCERIN 40 PADS/JAR (TUCKS) EXT PRN (00:36)
--- NOTE | 2019-01-04 01:39 | Emergency Department Note ---
Entered by Janki Schmitt acting as a scribe for Yazan Copeland History of Present Illness General Chief complaint: Shortness of Breath/Dyspnea Stated complaint: HAD HEART ATTACK WEEK AGO, TROUBLE BREATHING Time Seen by Provider: 01/03/19 20:34 Source: patient History of Present Illness Provider complaint: shortness of breath Onset (ago): hour(s) 3 Pain Consistency: + other (episode) Maximum Pain Intensity: 0 Quality: + other (shortness of breath) Associated symptoms: + other (feels like she cannot get a full breath, seen here last week for [place] and had a stent placed) Treatments prior to arrival: none The patient is an 88 year old female who presents to the ED with complaints of an episode of shortness of breath that started 3 hours ago. The patient states that it feels like she cannot get a full breath. The patient states that she was seen here last week for an [place] and had similar symptoms. She reports right mild substernal chest pain. The patient states that she had a stent placed and was discharged home 4 days ago. The patient denies receiving any treatments prior to arrival. Home Medications Home Medications Medication Instructions Recorded Confirmed Type Rachelle-C with Bioflavonoids 1 tab PO UD 07/19/18 01/03/19 History Tucks (witch phi) 1 pad TOPICAL BID PRN 07/19/18 01/03/19 History aspirin [Aspir-81] 81 mg PO QAM 07/19/18 01/03/19 History cranberry 2,400 mg PO QAM 07/19/18 01/03/19 History darifenacin [Enablex] 15 mg PO QAM 07/19/18 01/03/19 History fexofenadine [Pamela Allergy] 180 mg PO QAM 07/19/18 01/03/19 History fluocinonide 1 applic TOPICAL BID PRN 07/19/18 01/03/19 History hydrocortisone 1 applic GA UD PRN 07/19/18 01/03/19 History omeprazole 20 mg PO QAM 07/19/18 01/03/19 History polyethylene glycol 3350 [Miralax] 8.5 - 17 g PO QAM 07/19/18 01/03/19 History triamcinolone acetonide 1 applic TOPICAL BID PRN 07/19/18 01/03/19 History calcium carbonate-vitamin D3 1 tab PO QAM 12/25/18 01/03/19 History [Calcium 600 + D(3)] latanoprost 1 drp OPHTHALMIC (EYE) HS 12/25/18 01/03/19 History lisinopril 5 mg PO DAILY 12/25/18 01/03/19 History amiodarone 200 mg PO BIDM 30 Days #60 tab 12/30/18 01/03/19 Rx atorvastatin 20 mg PO QAM 30 Days #30 tab 12/30/18 01/03/19 Rx clopidogrel 75 mg PO QAM 30 Days #30 tab 12/30/18 01/03/19 Rx furosemide 20 mg PO QAM PRN #0 tab 12/30/18 01/03/19 Rx levothyroxine [Synthroid] 50 mcg PO DAILYBB 30 Days #30 tab 12/30/18 01/03/19 Rx metoprolol tartrate 25 mg PO BID 30 Days #60 tab 12/30/18 01/03/19 Rx nitroglycerin [Nitrostat] 0.4 mg SUBLINGUAL PRN PRN #14 tab 12/30/18 01/03/19 Rx Allergies Allergy/AdvReac Type Severity Reaction Status Date / Time allopurinol Allergy Unknown Verified 01/03/19 21:16 amlodipine Allergy Unknown Verified 01/03/19 21:16 ciprofloxacin [From Cipro] Allergy Unknown Verified 01/03/19 21:16 nifedipine Allergy Unknown Verified 01/03/19 21:16 NSAIDS (Non-Steroidal Allergy Unknown Verified 01/03/19 21:16 Anti-Inflamma oxybutynin [From Ditropan] Allergy Unknown Verified 01/03/19 21:16 Vtldece-Kgb-Wjt Reductase Allergy Unknown Verified 01/03/19 21:16 Inhibitor sulfamethoxazole AdvReac CENTRAL Verified 01/03/19 21:16 [From Bactrim] NERVOUS SYSTEM DYSFUNCTION trimethoprim [From Bactrim] AdvReac CENTRAL Verified 01/03/19 21:16 NERVOUS SYSTEM DYSFUNCTION Past Med/Surg History Social History Preferred Language: Arabic Communication Ability: Effective 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 and A total of 10 systems reviewed and were otherwise negative Physical Exam Vital Signs Vital Signs - 24 hr 01/03/19 20:25 01/03/19 20:50 01/03/19 20:51 Temperature 36.5 C Temperature Source Oral Sepsis Recent Fever Within 48 Hours No Sepsis Action Taken by Nursing No Action Required Pulse Rate 60 48 L Pulse Rate from SpO2 Sensor Respiratory Rate 18 18 Blood Pressure 151/75 H 137/68 Blood Pressure Mean 100 91 Blood Pressure Position Sitting Pulse Oximetry 96 95 Oxygen Delivery Method Room Air Room Air Room Air 01/03/19 21:00 01/03/19 21:30 01/03/19 22:01 Temperature Temperature Source Sepsis Recent Fever Within 48 Hours Sepsis Action Taken by Nursing Pulse Rate 47 L 48 L 51 L Pulse Rate from SpO2 Sensor Respiratory Rate 16 15 16 Blood Pressure 118/64 114/60 150/82 H Blood Pressure Mean 82 78 104 Blood Pressure Position Pulse Oximetry 95 96 95 Oxygen Delivery Method Room Air Room Air Room Air 01/03/19 22:02 01/03/19 22:30 01/03/19 22:31 Temperature Temperature Source Sepsis Recent Fever Within 48 Hours Sepsis Action Taken by Nursing Pulse Rate 51 L 52 L 52 L Pulse Rate from SpO2 Sensor 51 L 52 L 52 L Respiratory Rate 15 18 17 Blood Pressure 154/106 H Blood Pressure Mean 122 Blood Pressure Position Pulse Oximetry 94 97 96 Oxygen Delivery Method 01/03/19 23:00 Temperature Temperature Source Sepsis Recent Fever Within 48 Hours Sepsis Action Taken by Nursing Pulse Rate 54 L Pulse Rate from SpO2 Sensor 53 L Respiratory Rate 19 Blood Pressure 145/97 H Blood Pressure Mean 113 Blood Pressure Position Pulse Oximetry 97 Oxygen Delivery Method Room Air GENERAL: She is oriented to person, place, and time. She appears well-developed and well-nourished. She does not appear distressed. HENT: Exam performed. \u00b7 Head: Normocephalic and atraumatic. \u00b7 Right Ear: External ear normal. No mastoid tenderness. \u00b7 Left Ear: External ear normal. No mastoid tenderness. \u00b7 Mouth/Throat: The oropharynx is clear and moist. No trismus in the jaw. No dental abscesses or uvula swelling. No oropharyngeal exudate or tonsillar abscesses. EYES: Conjunctivae and EOM are normal. Pupils are equal, round, and reactive to light. Right eye exhibits no discharge. Left eye exhibits no discharge. No scleral icterus. NECK: Normal range of motion. Neck supple. No JVD present. No spinous process tenderness present. No carotid bruit present. No rigidity. No tracheal deviation and normal range of motion present. No Brudzinski's sign and no Kernig's sign noted. CV: Normal rate, regular rhythm, normal heart sounds and intact distal pulses. There is no peripheral edema. Palpable radial pulses bue. PULM/CHEST: Effort normal and breath sounds normal. No respiratory distress. No stridor. She has no wheezes. She has no rales. Chest Wall: She exhibits no tenderness. ABD: The abdomen is soft. Bowel sounds are normal. She has no distension. No mass is present. There is no tenderness. There is no rebound, no guarding, no Galarza's sign and no tenderness at McBurney's point. Rovsig negative MUSC/SKEL: Normal range of motion. There is no peripheral edema, tenderness or deformity. LYMPH: No cervical adenopathy. NEURO: She is alert and oriented to person, place, and time. She has normal str ength. No cranial nerve deficit or sensory deficit. Coordination and gait normal. GCS eye subscore is 4. GCS verbal subscore is 5. GCS motor subscore is 6. cerbellar tests wnl. SKIN: Skin is warm and dry. She is not diaphoretic. PSYCH: She has a normal mood and affect. Her behavior is normal. Judgment and thought content normal. Course 2044: Past medical records reviewed. The patient was evaluated in room A11. A complete history and physical exam was performed.EMR reviewed. Patient was discharged from hospital 4 days ago after suffering NSTEMI. She had a stent put in LAD on 12/25/2018. She had a CTA of chest 12/25/2018 which was negative for PE. 2229: Vital signs stable. Labs showed elevated troponin. I discussed the patient's case with Dr. Riley Herron, Hospitalist. He will evaluate the patient for further management. He recommends speaking with cardiology for further management and treatment options including possible heparinization. I discussed the patient's case with Dr. Valente. He states that it is unlikely the stent is occluded, however he states we are examining the patient and if we feel comfortable with heparin that he is okay with it. Given the patient's elevated troponin, similar symptoms were previous [place], and recent stent placement, it is felt that heparin is warranted at this time. Consultations Consultation #1: I discussed the patient's case with Dr. Riley Herron, Hospitalist. He will evaluate the patient for further management. Time: 22:31 Administered Medications Heparin Sodium/Dextrose (Heparin Sodium/Dextrose) 25,000 units in 500 mls @ 21 mls/hr IV .[id number] MIKE; Protocol Stop: 02/02/19 22:44 Last Titration: 01/04/19 00:29 Dose: 1,050 units/hr, 21 mls/hr Documented by: [id number] Cosigned by: [id number] Admin: 01/03/19 23:02 Dose: 1,050 units/hr, 21 mls/hr Documented by: [id number] Cosigned by: [id number] Ioversol (Optiray 320 125ml) 104 ml IV ONCE PRN PRN Reason: Interaction Checking Stop: 01/08/19 00:16 Last Admin: 01/04/19 00:17 Dose: 104 ml Documented by: [id number] Discontinued Medications Heparin Sodium (Porcine) (Heparin Sodium (Porcine)) Confirm Administered Dose 5,000 units .ROUTE .STK-MED ONE Stop: 01/03/19 22:56 Last Admin: 01/03/19 23:02 Dose: 5,000 units Documented by: [id number] Cosigned by: [id number] Heparin Sodium/Dextrose () 1 ea IV NOW STA; Protocol Stop: 01/03/19 22:32 Last Admin: 01/04/19 00:33 Dose: Not Given Documented by: [id number] Medical Decision Making Medical Records Attestation: I reviewed the patient's medical records. Home Medications Current Medication List: was personally reviewed by me Laboratory Data Attestation: I reviewed the patient's lab results. Result diagrams: 01/03/19 21:50 01/03/19 21:50 Lab Results 01/03/19 01/03/19 01/03/19 Range/Units 21:50 21:50 21:50 WBC 7.62 (4.8-10.8) K/uL RBC 4.27 (4.2-5.4) M/uL Hgb 12.5 (12.0-16.0) g/dL Hct 37.0 (37-47) % MCV 86.7 (80-100) fL MCH 29.3 (25-34) pg MCHC 33.8 (32-36) g/dL RDW Std Deviation 43.3 (36.4-46.3) fL RDW Coeff of Kamala 13.9 (11.5-14.5) % Plt Count 175 (130-400) K/uL MPV 11.2 H (7.4-10.4) fL Immature Gran % (Auto) 0.3 % Neut % (Auto) 62.4 % Lymph % (Auto) 21.0 % Dooly % (Auto) 13.5 % Eos % (Auto) 2.5 % Baso % (Auto) 0.3 % Immature Gran # (Auto) 0.02 (0.00-0.02) K/uL Neut # (Auto) 4.76 (1.4-6.5) K/uL Lymph # (Auto) 1.60 (1.2-3.4) K/uL Dooly # (Auto) 1.03 H (0.11-0.59) K/uL Eos # (Auto) 0.19 (0-0.5) K/uL Baso # (Auto) 0.02 (0-0.2) K/uL PT 11.5 (9.0-12.0) Seconds INR 1.1 (0.9-1.1) APTT 25.1 (21.0-31.0) Seconds PTT Ratio 0.9 Sodium 136 (136-145) mmol/L Potassium 3.7 (3.5-5.1) mmol/L Chloride 105 (98-107) mmol/L Carbon Dioxide 24 (21-32) mmol/L Anion Gap 7.0 (3-11) BUN 14 (7-18) mg/dl Creatinine 1.16 (0.6-1.2) mg/dl Est Cr Clr Drug Dosing Not Reportable Est GFR ( Amer) 48.3 Est GFR (Non-Af Amer) 41.7 BUN/Creatinine Ratio 11.9 (10-20) Glucose 117 H (70-99) mg/dl Calcium 9.6 (8.5-10.1) mg/dl Troponin I 0.059 H* (0-0.045) ng/ml Lipase 85 (73-393) U/L Imaging Data Radiologist's Impression: Radiology results as stated below per my review and the radiologist's interpretation: SINGLE VIEW CHEST CLINICAL HISTORY: Atypical chest pain. FINDINGS: An AP, portable, upright chest radiograph is compared to study dated 12/29/2018 and correlated with chest CT dated 12/25/2018. The examination is degraded by portable technique and patient rotation. The heart is enlarged noting atherosclerotic calcification of the thoracic aorta. The pulmonary vasculature is noncongested. Bibasilar atelectasis is noted. There is no airspace consolidation or large pleural effusion. No pneumothorax is seen. The skeletal structures are osteopenic. The bony thorax is grossly intact. Degenerative changes noted in the shoulders and thoracic spine. IMPRESSION: Cardiomegaly with no acute cardiopulmonary abnormality. Electronically signed by: [place]oacano Joseph M.D. 01/03/2019 9:19 PM ECG Data Attestation: I personally reviewed and interpreted this ECG as follows: Indication: SOB/dyspnea Rate (beats per minute): 50 Rhythm: sinus rhythm Findings: + other (GA, QRS and QTC within normal limits); no ST depression and no ST elevation Comparison ECG Date: from (December,) Change: no significant change Blood Pressure Blood Pressure Findings: Elevated blood pressure Blood Pressure Disposition: further management by hospitalist SHAUNA Narrative 2044: Past medical records reviewed. The patient was evaluated in room A11. A complete history and physical exam was performed.EMR reviewed. Patient was discharged from hospital 4 days ago after suffering NSTEMI. She had a stent put in LAD on 12/25/2018. She had a CTA of chest 12/25/2018 which was negative for PE. 2229: Vital signs stable. Labs showed elevated troponin. I discussed the patient's case with Dr. Riley Herron, Hospitalist. He will evaluate the patient for further management. He recommends speaking with cardiology for further management and treatment options including possible heparinization. I discussed the patient's case with Dr. Valente. He states that it is unlikely the stent is occluded, however he states we are examining the patient and if we feel comfortable with heparin that he is okay with it. Given the patient's elevated troponin, similar symptoms were previous [place], and recent stent placement, it is felt that heparin is warranted at this time. Impression & Plan Non-ST elevation [place] (NSTEMI) Critical Care Time Critical Care Time: Yes Total Critical Care Time: 36 I have personally spent greater than 36 minutes of critical care time in the direct management of this patient. This includes bedside care, interpretation of diagnostic studies, and testing, discussion with consultants, patient, and family members, and other required patient management activities. This 36 minutes is in excess of all separately billable procedures. Discharge Plan Visit Data *Final* Discharge Date/Time: 01/03/19 23:57 Chief Complaint: Shortness of Breath/Dyspnea Stated Complaint: HAD HEART ATTACK WEEK AGO, TROUBLE BREATHING ED Provider: Yazan Copeland Discharge Problem: Non-ST elevation [place] (NSTEMI) Patient Disposition: Admitted As Inpatient Discharge Instructions Interventions: ED Discharge Assessment Last Done: 01/03/19 23:57 The scribe's documentation has been prepared under my direction and personally reviewed by me in its entirety. I confirm that the note above accurately reflects all work, treatment, procedures, and medical decision making performed by me.
[2019-01-04 05:49] LABS: Basophils # (auto) 0.02 K/uL (0-0.2); Basophils % (auto) 0.3 %; Eosinophils # (auto) 0.19 K/uL (0-0.5); Eosinophils % (auto) 2.9 %; Hematocrit (blood only) 36.1 % (37-47); Hemoglobin 12.2 g/dL (12.0-16.0); Immature Granulocytes # (auto) 0.02 K/uL (0.00-0.02); Immature Granulocytes % (auto) 0.3 %; Lymphocytes # (auto) 1.56 K/uL (1.2-3.4); Lymphocytes % (auto) 23.4 %; Mean Corpuscular Hemoglobin 29.6 pg (25-34); Mean Corpuscular Hgb Conc 33.8 g/dL (32-36); Mean Corpuscular Volume 87.6 fL (80-100); Mean Platelet Volume 11.1 fL (7.4-10.4); Monocytes # (auto) 0.83 K/uL (0.11-0.59); Monocytes % (auto) 12.5 %; Neutrophils # (auto) 4.04 K/uL (1.4-6.5); Neutrophils % (auto) 60.6 %; Platelet Count 152 K/uL (130-400); RDW Coefficient of Variation 13.9 % (11.5-14.5); RDW Standard Deviation 44.3 fL (36.4-46.3); Red Blood Count 4.12 M/uL (4.2-5.4); White Blood Count 6.66 K/uL (4.8-10.8)
[2019-01-04 06:06] LABS: Partial Thromboplastin Ratio > 5.1
[2019-01-04 06:09] LABS: Partial Thromboplastin Time > 139.0 Seconds (21.0-31.0)
[2019-01-04 06:20] LABS: BUN Creatinine Ratio 11.5 (10-20); Est GFR (African American) 58.6; Est GFR (Non-African American) 50.5; Magnesium 1.9 mg/dl (1.8-2.4); Potassium 3.8 mmol/L (3.5-5.1)
--- NOTE | 2019-01-04 06:36 | CT Scan Report ---
CT ANGIOGRAPHY OF THE CHEST, PULMONARY EMBOLUS PROTOCOL CLINICAL HISTORY: Shortness of breath. COMPARISON STUDY: Chest CT December 25, 2018. Chest radiograph January 03, 2019. TECHNIQUE: Following IV administration of 104 mL of Optiray-320, helical axial images of the chest we re obtained utilizing the pulmonary embolus protocol. Maximal intensity projections and sagittal and coronal reformats were viewed on an independent 3D workstation. IV contrast was administered withou t complication. Automated exposure control was utilized for the study. A dose lowering technique wa s utilized adhering to the principles of ALARA. CT DOSE: 355.15 mGy.cm FINDINGS: No pulmonary emboli are identified. Moderate cardiomegaly is noted with extensive coronary artery calcification. There is no pericardial effusion. No enlarged axillary, mediastinal or hilar l ymph nodes are present. The central airways are patent. There is no consolidation to suggest pneumoni a. Mild linear and ground glass opacities favor atelectasis. There is no pneumothorax or pleural effu suman. Bony thorax is unremarkable. Upper abdomen is unremarkable. The appearance of the chest is unch anged. IMPRESSION: 1. No pulmonary emboli identified. 2. Moderate cardiomegaly. Extensive coronary artery calcification. 3. No acute intrathoracic findings. Electronically signed by: Adilson Turner M.D. 01/04/2019 6:35 AM
[2019-01-04] MEDS: LEVOTHYROXINE SODIUM 50 MCG TABLET PO SCH (06:49)
[2019-01-04] MEDS ORDERED: MAGNESIUM SULFATE / D5W 1 GM/100 ML BAG IV ONE (07:15)
[2019-01-04 07:32] LABS: Partial Thromboplastin Time 81.1 Seconds (21.0-31.0)
[2019-01-04] MEDS ORDERED: INFLUENZA VIRUS QUAD VACCINE 0.5 ML SYR IM ONE (09:00)
[2019-01-04] MEDS ORDERED: INFLUENZA ADMINISTRATION CHARGE ONE (09:00)
[2019-01-04] MEDS: POLYETHYLENE (MIRALAX) 17 GM PACK PO SCH ×3 (09:01→10:07)
[2019-01-04] MEDS: CALCIUM 600MG + VIT D 400 IU TAB PO SCH (09:02)
[2019-01-04] MEDS: ATORVASTATIN 20 MG TAB PO SCH (09:02)
[2019-01-04] MEDS: lisinopriL 5 MG TAB PO SCH (09:02)
[2019-01-04] MEDS: FEXOFENADINE HCL 180 MG TAB PO SCH (09:02)
[2019-01-04] MEDS: CLOPIDOGREL BISULFATE 75 MG TAB PO SCH (09:02)
[2019-01-04] MEDS: PANTOprazole 40 MG TAB PO SCH (09:02)
[2019-01-04] MEDS: ASPIRIN 81 MG ECTAB PO SCH (09:02)
[2019-01-04] MEDS: AMIODARONE 200 MG TAB PO SCH ×2 (09:07→09:33)
[2019-01-04] MEDS: METOPROLOL TARTRATE 25 MG TAB PO SCH ×3 (09:32→21:10)
--- NOTE | 2019-01-04 10:26 | Cardiology Consultation ---
Date of Consultation January 04, 2019 Assessment & Plan (1) SOB (shortness of breath): (2) Recent myocardial infarction: (3) Paroxysmal atrial fibrillation: (4) Presence of stent in LAD coronary artery: (5) Prolonged QT interval: Complex 88-year-old female admitted with episode of shortness of breath as well as left lower quadrant abdominal discomfort. No recurrent anginal symptoms. Patient appears euvolemic and compensated without evidence of diastolic heart failure. No evidence of evolving acute coronary syndrome. Cardiac enzymes are mildly elevated on admission however flat. Mild elevation consistent with recent myocardial infarction. ECG is abnormal, demonstrating changes consistent with recent myocardial infarction. Recommend discontinuation of intravenous heparin. With evidence of QT prolongation, amiodarone will be placed on hold. Continue oral beta-geraldine therapy and telemetry monitoring. Dual antiplatelet therapy must be continued for minimum of 6 months post percutaneous intervention. Other cardiovascular medications will be continued as previously ordered. History of Present Illness Reason for Consultation: Difficulty taking a deep breath, recent myocardial infarction status post drug-eluting stent implantation to the LAD, paroxysmal atrial fibrillation. Requesting Physician: Dr. Smith Attending Physician: Luis Alfredo Smith MD History of Present Illness 88-year-old female presents the emergency department with reports of "difficulty taking a deep breath". Recent history significant for NSTEMI s/p FRANCIA to LAD 12/26/2018. Hospital course complicated by episode of paroxysmal atrial fibrillation treated with amiodarone. Patient discharged home 12/30/2018. Patient reports a feeling of difficulty taking a deep breath yesterday in the evening. She contacted her son who took her to the emergency department. She denies any chest discomfort or anginal symptoms similar to recent myocardial infarction. No orthopnea, PND, or lower extremity edema. Denies palpitations, lightheadedness, dizziness, syncope, or near syncope. Troponins mildly elevated on admission however flat. Tolerated her a.m. meal. Complains of constipation since recent hospital discharge. Offers no other concerns/complaints this time. Allergies Allergy/AdvReac Type Severity Reaction Status Date / Time allopurinol Allergy Unknown Verified 01/03/19 21:16 amlodipine Allergy Unknown Verified 01/03/19 21:16 ciprofloxacin [From Cipro] Allergy Unknown Verified 01/03/19 21:16 nifedipine Allergy Unknown Verified 01/03/19 21:16 NSAIDS (Non-Steroidal Allergy Unknown Verified 01/03/19 21:16 Anti-Inflamma oxybutynin [From Ditropan] Allergy Unknown Verified 01/03/19 21:16 Yhstejc-Mml-Ops Reductase Allergy Unknown Verified 01/03/19 21:16 Inhibitor sulfamethoxazole AdvReac CENTRAL Verified 01/03/19 21:16 [From Bactrim] NERVOUS SYSTEM DYSFUNCTION trimethoprim [From Bactrim] AdvReac CENTRAL Verified 01/03/19 21:16 NERVOUS SYSTEM DYSFUNCTION Home Medications Home Medications Medication Instructions Recorded Confirmed Type Rachelle-C with Bioflavonoids 1 tab PO UD 07/19/18 01/03/19 History Tucks (jamaalch phi) 1 pad TOPICAL BID PRN 07/19/18 01/03/19 History aspirin [Aspir-81] 81 mg PO QAM 07/19/18 01/03/19 History cranberry 2,400 mg PO QAM 07/19/18 01/03/19 History darifenacin [Enablex] 15 mg PO QAM 07/19/18 01/03/19 History fexofenadine [Pamela Allergy] 180 mg PO QAM 07/19/18 01/03/19 History fluocinonide 1 applic TOPICAL BID PRN 07/19/18 01/03/19 History hydrocortisone 1 applic [place] UD PRN 07/19/18 01/03/19 History omeprazole 20 mg PO QAM 07/19/18 01/03/19 History polyethylene glycol 3350 [Miralax] 8.5 - 17 g PO QAM 07/19/18 01/03/19 History triamcinolone acetonide 1 applic TOPICAL BID PRN 07/19/18 01/03/19 History calcium carbonate-vitamin D3 1 tab PO QAM 12/25/18 01/03/19 History [Calcium 600 + D(3)] latanoprost 1 drp OPHTHALMIC (EYE) HS 12/25/18 01/03/19 History lisinopril 5 mg PO DAILY 12/25/18 01/03/19 History atorvastatin 20 mg PO QAM 30 Days #30 tab 12/30/18 01/03/19 Rx clopidogrel 75 mg PO QAM 30 Days #30 tab 12/30/18 01/03/19 Rx furosemide 20 mg PO QAM PRN #0 tab 12/30/18 01/03/19 Rx levothyroxine [Synthroid] 50 mcg PO DAILYBB 30 Days #30 tab 12/30/18 01/03/19 Rx metoprolol tartrate 25 mg PO BID 30 Days #60 tab 12/30/18 01/03/19 Rx nitroglycerin [Nitrostat] 0.4 mg SUBLINGUAL PRN PRN #14 tab 12/30/18 01/03/19 Rx Patient History Medical History HLD (hyperlipidemia) (Chronic) HTN (hypertension) (Chronic) Hyponatremia (Chronic) Hypothyroidism (Chronic) Diabetes mellitus, type II (Chronic) Diastolic heart failure (Chronic) Stable angina (Acute) Surgical History History of partial colectomy (Chronic) Hx of partial cystectomy (Chronic) S/P bilateral hip replacements (Chronic) Family History Other Family history non-contributory Social History Preferred Language: French Communication Ability: Effective Photographic Specialist Required: No Beliefs That Will Affect Care: Yarsanism Yarsanism Beliefs: jew marital status: Single Current Living Situation: Alone Current Living Situation Comment: [facility] current occupational status: retired Other Information That Helps Us Care for You: No Feels Safe at Home: Yes Safety Concerns: Feels Safe At This Time Smoking Status: Former smoker Hx Alcohol Use: No Hx Substance Use: No Review of Systems Review of Systems: All systems reviewed & are unremarkable except as noted in HPI & below Physical Exam Physical Exam: General: NAD, AAO x3, well nourished. HEENT: Normocephalic. Atraumatic. Conjunctiva pink, no scleral icterus. Neck: No carotid bruits, the carotid upstrokes are brisk. No JVD. No HJR Heart: Regular normal S-1 and S-2 no S-3 or S-4 gallop. No murmurs or rub appreciated. PMI is not displaced. No RV heave. Lungs: Clear bilateral without rales , rhonchi, or wheeze. Abdomen: Normal bowel sounds. Soft. Nontender. No masses or organomegaly. No abdominal bruits. Extremities: No clubbing, cyanosis, or edema. Pulses: radial=2/4, Dorsalis pedis =2/4, posterior tibial=2/4. Neuro: Cranial nerves grossly intact. No focal motor deficit. Results & Data Vital Signs (Past 12 Hours) Vital Signs Temp Pulse Pulse Resp BP BP Pulse Ox 01/04/19 07:57 36.4 C L 57 L 16 132/69 97 01/04/19 04:01 36.4 C L 47 L 16 95/52 L 98 01/04/19 00:15 36.4 C L 60 20 165/77 H 99 01/03/19 23:57 53 L 16 122/72 97 01/03/19 23:00 54 L 19 145/97 H 97 01/03/19 22:31 52 L 17 154/106 H 96 01/03/19 22:30 52 L 18 97 Laboratory Results Laboratory Results - last 24 hr 01/03/19 01/03/19 01/03/19 21:50 21:50 21:50 WBC 7.62 RBC 4.27 Hgb 12.5 Hct 37.0 MCV 86.7 MCH 29.3 MCHC 33.8 RDW Std Deviation 43.3 RDW Coeff of Kamala 13.9 Plt Count 175 MPV 11.2 H Immature Gran % (Auto) 0.3 Neut % (Auto) 62.4 Lymph % (Auto) 21.0 Elbert % (Auto) 13.5 Eos % (Auto) 2.5 Baso % (Auto) 0.3 Immature Gran # (Auto) 0.02 Neut # (Auto) 4.76 Lymph # (Auto) 1.60 Elbert # (Auto) 1.03 H Eos # (Auto) 0.19 Baso # (Auto) 0.02 PT 11.5 INR 1.1 APTT 25.1 PTT Ratio 0.9 Sodium 136 Potassium 3.7 Chloride 105 Carbon Dioxide 24 Anion Gap 7.0 BUN 14 Creatinine 1.16 Est Cr Clr Drug Dosing Not Reportable Est GFR ( Amer) 48.3 Est GFR (Non-Af Amer) 41.7 BUN/Creatinine Ratio 11.9 Glucose 117 H Calcium 9.6 Magnesium Troponin I 0.059 H* Lipase 85 01/04/19 01/04/19 01/04/19 00:42 05:22 05:22 WBC 6.66 RBC 4.12 L Hgb 12.2 Hct 36.1 L MCV 87.6 MCH 29.6 MCHC 33.8 RDW Std Deviation 44.3 RDW Coeff of Kamala 13.9 Plt Count 152 MPV 11.1 H Immature Gran % (Auto) 0.3 Neut % (Auto) 60.6 Lymph % (Auto) 23.4 Elbert % (Auto) 12.5 Eos % (Auto) 2.9 Baso % (Auto) 0.3 Immature Gran # (Auto) 0.02 Neut # (Auto) 4.04 Lymph # (Auto) 1.56 Elbert # (Auto) 0.83 H Eos # (Auto) 0.19 Baso # (Auto) 0.02 PT INR APTT PTT Ratio Sodium 138 Potassium 3.8 Chloride 105 Carbon Dioxide 24 Anion Gap 9.0 BUN 11 Creatinine 0.99 Est Cr Clr Drug Dosing 34.0 Est GFR ( Amer) 58.6 Est GFR (Non-Af Amer) 50.5 BUN/Creatinine Ratio 11.5 Glucose 128 H Calcium 9.0 Magnesium 1.9 Troponin I 0.060 H* Lipase 01/04/19 01/04/19 01/04/19 05:22 06:58 06:58 WBC RBC Hgb Hct MCV MCH MCHC RDW Std Deviation RDW Coeff of Kamala Plt Count MPV Immature Gran % (Auto) Neut % (Auto) Lymph % (Auto) Elbert % (Auto) Eos % (Auto) Baso % (Auto) Immature Gran # (Auto) Neut # (Auto) Lymph # (Auto) Elbert # (Auto) Eos # (Auto) Baso # (Auto) PT INR APTT > 139.0 H* 81.1 H* PTT Ratio > 5.1 3.0 Sodium Potassium Chloride Carbon Dioxide Anion Gap BUN Creatinine Est Cr Clr Drug Dosing Est GFR ( Amer) Est GFR (Non-Af Amer) BUN/Creatinine Ratio Glucose Calcium Magnesium Troponin I 0.043 Lipase
--- NOTE | 2019-01-04 13:35 | Hospitalist Progress Note ---
Date of Service January 04, 2019 Assessment & Plan (1) SOB (shortness of breath): This is an 88-year-old female with a past medical history significant for type 2 diabetes, diastolic heart failure, hypertension, hyperlipidemia, atrial fibrillation and hypothyroidism who was recently in the hospital who was admitted on 12/25/2018 and discharged on 12/30/2018. At that time, she had a non-ST elevated myocardial infarction, status post drug-eluting stent to left anterior descending and during the hospitalization, she developed atrial fibrillation for which she was started on amiodarone and was discharged Shortness of breath -Main complaint is shortness of breath on presentation of not being able to a deep full breath -admission CTA: No pulmonary emboli identified. No consolidation to suggest pneumonia -no acute pulmonary events during hospital stay to date as patient has been on room air Recent myocardial infarction: Paroxysmal atrial fibrillation: Presence of stent in LAD coronary artery: Prolonged QT interval Bradycardia -initially patient was started on heparin drip on admission because of mildly elevated troponins that peaked at 0.06 and concerns that these levels may reflect a cardiac re-infarction -Telemetry monitoring remarkable for bradycardia into the 40s -cardiology service has evaluated the patient in AM of 01/03/19 and stopped the heparin drip as the abnormal admission EKG demonstrating changes consistent with recent myocardial infarction. repeat echocardiogram on 01/04/19 shows EF 60 to 65% with mild anterior apical hypokinesis with otherwise normal wall motion and cardiology interpretation that this echocardiogram is no change compared to the echocardiogram on 12/27/18 -With evidence of QT prolongation, amiodarone placed on hold. Continue oral beta-geraldine therapy metoprolol 25 mg BID and telemetry monitoring -Dual antiplatelet therapy aspirin 81 mg daily and clopidogrel 75 mg daily must be continued for minimum of 6 months post percutaneous intervention -Other cardiovascular medications will be continued as previously ordered of atorvastatin 20 mg and lisinopril 5 mg daily Type 2 diabetes without fci current use of insulin -Monitor blood sugars. -sliding scale insulin as needed -check HbA1c Hypothyroidism -Levothyroxine was reduced from 112 to 50 mcg on last admission -continue as 50 mcg daily -recheck TSH and T4 DVT prophylaxis: SCDs son [phone] appointments 01/08/2019 1:00 PM Provider Ananya Staples MD Department General Internal Medicine [facility] 01/18/2019 1:00 PM Provider Jamal Valente MD Department Cardiology, [facility] 02/05/2019 2:20 PM Provider Ananya Staples MD Department General Internal Medicine [facility] 03/27/2019 1:30 PM Provider Jamal Valente MD Department Cardiology, [facility] Subjective on telemetry heart rates have been bradycardic in the 40s to 50s. patient denies lightheadedness or dizziness. no chest pain. no palpitations. breathing on room air. she reports her breathing feels improved compared to when she initially came to the hospital. no abdomen pain. no vomiting. Physical Exam Constitutional: comfortable Eyes: PERRL, conjunctivae normal, anicteric sclerae EOM intact bilaterally ENMT: external ear and nose normal, oropharynx normal Neck: normal visual inspection Respiratory: normal respiratory effort, lungs clear to auscultation Cardiovascular: Rate/Rhythm: regular rhythm and + bradycardic Gastrointestinal (Abdomen): normal bowel sounds, soft, nontender, no hepatosplenomegaly Musculoskeletal: Head/Neck/Chest: normocephalic and head atraumatic Neurologic: PERRL, EOMI, accommodation nl, no face palsy, no dysarthria CN's II-XI intact bilaterally Psychiatric: A+Ox3, euthymic affect Results & Data Vital Signs (Past 12 Hours) Vital Signs Temp Pulse Resp BP Pulse Ox 01/04/19 11:53 36.6 C 44 L 17 134/73 98 01/04/19 07:57 36.4 C L 57 L 16 132/69 97 01/04/19 04:01 36.4 C L 47 L 16 95/52 L 98
[2019-01-04] MEDS ORDERED: CARBOHYDRATES FOR HYPOGLYCEMIA PO PRN (14:00)
[2019-01-04] MEDS ORDERED: GLUCOSE 10 TABS/TUBE PO PRN (14:00)
[2019-01-04] MEDS ORDERED: DEXTROSE 50% 50 ML SYRINGE IV PRN (14:00)
[2019-01-04] MEDS ORDERED: GLUCOSE 40% GEL 15 GM TUBE PO PRN (14:00)
[2019-01-04] MEDS ORDERED: GLUCAGON FOR INJ 1 MG VIAL SQ PRN (14:00)
[2019-01-04] MEDS: INSULIN ASPART 100 UNITS/ML 3 ML PEN SC SCH ×2 (17:59→21:21)
[2019-01-04] MEDS ORDERED: LATANOPROST 0.005% OP SOLN 2.5 ML BTL OP SCH (21:00)
[2019-01-05] MEDS: LEVOTHYROXINE SODIUM 50 MCG TABLET PO SCH (05:52)
[2019-01-05 07:26] LABS: Magnesium 2.3 mg/dl (1.8-2.4); Thyroid Stimulating Hormone 0.073 uIu/ml (0.300-4.500)
[2019-01-05 07:40] LABS: T4 Free Thyroxine 1.5 ng/dl (0.8-1.6)
[2019-01-05 08:12] LABS: Estimated Average Glucose 131 mg/dl; Hemoglobin A1C 6.2 % (4.5-5.6)
[2019-01-05] MEDS: PANTOprazole 40 MG TAB PO SCH (08:58)
[2019-01-05] MEDS: CALCIUM 600MG + VIT D 400 IU TAB PO SCH (08:59)
[2019-01-05] MEDS: CLOPIDOGREL BISULFATE 75 MG TAB PO SCH (08:59)
[2019-01-05] MEDS: FEXOFENADINE HCL 180 MG TAB PO SCH (08:59)
[2019-01-05] MEDS: ATORVASTATIN 20 MG TAB PO SCH (08:59)
[2019-01-05] MEDS: lisinopriL 5 MG TAB PO SCH (08:59)
[2019-01-05] MEDS: ASPIRIN 81 MG ECTAB PO SCH (08:59)
[2019-01-05] MEDS: POLYETHYLENE (MIRALAX) 17 GM PACK PO SCH (09:00)
[2019-01-05] MEDS: INSULIN ASPART 100 UNITS/ML 3 ML PEN SC SCH (09:00)
[2019-01-05] MEDS: METOPROLOL TARTRATE 25 MG TAB PO SCH (09:05)
--- NOTE | 2019-01-05 09:58 | XRay Report ---
XR chest 2V routine CLINICAL HISTORY: 88 years-old Female presenting with recent shortness of breath, elevated troponins. TECHNIQUE: PA and lateral views of the chest were obtained. COMPARISON: 01/03/2019 and CTA chest from 01/04/2019. FINDINGS: Atherosclerosis of the aortic arch. Tortuosity of the descending thoracic aorta. Cardiac silhouette e nlarged. Lungs mildly hyperinflated. No focal opacity. No pleural effusion or pneumothorax. Osteopeni a may be present. Upper abdomen normal. IMPRESSION: 1. Cardiomegaly. No other convincing evidence of acute cardiopulmonary disease. Electronically signed by: Moiz Coffey M.D. 01/05/2019 9:56 AM
[2019-01-05] MEDS ORDERED: METOPROLOL TARTRATE 25 MG TAB PO STA (10:43)
--- NOTE | 2019-01-05 10:49 | Hospitalist Progress Note ---
Date of Service January 05, 2019 Assessment & Plan (1) SOB (shortness of breath): This is an 88-year-old female with a past medical history significant for type 2 diabetes, diastolic heart failure, hypertension, hyperlipidemia, atrial fibrillation and hypothyroidism who was recently in the hospital who was admitted on 12/25/2018 and discharged on 12/30/2018. At that time, she had a non-ST elevated myocardial infarction, status post drug-eluting stent to left anterior descending and during the hospitalization, she developed atrial fibrillation for which she was started on amiodarone and was discharged Shortness of breath -Main complaint is shortness of breath on presentation of not being able to a deep full breath -admission CTA: No pulmonary emboli identified. No consolidation to suggest pneumonia -no acute pulmonary events during hospital stay to date as patient has been on room air -CXR on 01/05/19 re-affirms no lung infiltrates Recent myocardial infarction: Paroxysmal atrial fibrillation: Presence of stent in LAD coronary artery: Prolonged QT interval Bradycardia -initially patient was started on heparin drip on admission because of mildly elevated troponins that peaked at 0.06 and concerns that these levels may reflect a cardiac re-infarction -Telemetry monitoring remarkable for bradycardia into the 40s -cardiology service has evaluated the patient in AM of 01/03/19 and stopped the heparin drip as the abnormal admission EKG demonstrating changes consistent with recent myocardial infarction. repeat echocardiogram on 01/04/19 shows EF 60 to 65% with mild anterior apical hypokinesis with otherwise normal wall motion and cardiology interpretation that this echocardiogram is no change compared to the echocardiogram on 12/27/18 -With evidence of QT prolongation, amiodarone placed on hold. Continue oral beta-geraldine therapy metoprolol 25 mg BID and telemetry monitoring -Dual antiplatelet therapy aspirin 81 mg daily and clopidogrel 75 mg daily must be continued for minimum of 6 months post percutaneous intervention -Other cardiovascular medications will be continued as previously ordered of atorvastatin 20 mg and lisinopril 5 mg daily -01/05/[address] Duncan that patient's metoprolol was held by nursing staff today. He would like patient to have morning dose of the metoprolol before patient is discharged. He advises patient to continue metoprolol twice a day. He does not want patient to be on amiodarone at home Type 2 diabetes without terminal carman current use of insulin vs prediabetes -check HbA1c 6.3 -discussed with patient and family members about avoiding simple sugars in diet and no need for insulin at home at this time Hypothyroidism -Levothyroxine was reduced from 112 to 50 mcg on last admission -continue as 50 mcg daily -TSH as 0.073 (which is an improvement compared to 12/28/18 labs) and normal free T4 DVT prophylaxis: SCDs son [phone] Discharge Instructions Patient is discharged and should no longer take amiodarone at home appointments 01/08/2019 1:00 PM Provider Ananya Staples MD Department General Internal Med [facility] 01/18/2019 1:00 PM Provider Jamal Valente MD Department Cardiology, [facility] 02/05/2019 2:20 PM Provider Ananya Staples MD Department General Internal Medicine [facility] 03/27/2019 1:30 PM Provider Jamal Valente MD Department Cardiology, [facility] Discharge diagnosis: Shortness of breath Recent myocardial infarction (Presence of stent in LAD coronary artery) Paroxysmal atrial fibrillation: Prolonged QT interval Bradycardia Hypothyroidism Pre-diabetes vs Type 2 diabetes without fdc current use of insulin (HbA1c 6.3) Subjective heart rates on telemetry generally improve to high 50s, and the 60s. Patient feels her breathing is generally baseline. she denies chest pain. no palpitations. no dizziness. no headache. patient's son at bedside. discharge instructions discussed at length Physical Exam Constitutional: comfortable Eyes: PERRL, conjunctivae normal, anicteric sclerae EOM intact bilaterally ENMT: external ear and nose normal, oropharynx normal Neck: normal visual inspection Respiratory: normal respiratory effort, lungs clear to auscultation Cardiovascular: Rate/Rhythm: regular rhythm and + bradycardic Gastrointestinal (Abdomen): normal bowel sounds, soft, nontender, no hepatosplenomegaly Musculoskeletal: Head/Neck/Chest: normocephalic and head atraumatic Neurologic: PERRL, EOMI, accommodation nl, no face palsy, no dysarthria CN's II-XI intact bilaterally Psychiatric: A+Ox3, euthymic affect Results & Data Vital Signs (Past 12 Hours) Vital Signs Temp Pulse Pulse Resp BP Pulse Ox Pulse Ox 01/05/19 07:04 36.6 C 57 L 16 122/58 L 97 10/04/19 04:05 36.8 C 68 16 126/69 98 01/05/19 00:28 56 L 96 01/04/19 23:23 36.7 C 57 L 16 118/59 L 96
--- NOTE | 2019-01-05 10:55 | Discharge Summary ---
Date of Service January 05, 2019 Admission HPI Per Admitting Provider DATE OF ADMISSION: 01/03/2019 CHIEF COMPLAINT: Shortness of breath. HISTORY OF PRESENT ILLNESS: This is an 88-year-old female with a past medical history significant for type 2 diabetes, diastolic heart failure, hypertension, hyperlipidemia, atrial fibrillation and hypothyroidism who was recently in the hospital who was admitted on 12/25/2018 and discharged on 12/30/2018. At that time, she had a non-ST elevated myocardial infarction, status post drug-eluting stent to left anterior descending and during the hospitalization, she developed atrial fibrillation for which she was started on amiodarone and was discharged. The patient lives alone. She is generally weak lately and was getting better and her appetite has been improving. She is resting mostly, not doing much activity, but when she ambulates, she does not get any chest pain or shortness of breath .She cannot lie flat on her back , she sleeps sideways.Today evening, she suddenly felt short of breath, felt like she could not take deep breath. She called her son and then he brought her here. She still feels short of breath and cannot takes deep breaths. She is saturating fine on room air, hemodynamically stable. Denies any chest pain, but she has dry cough for last 3 days. Denies any fever or chills. No sweating. No headache. No dizziness. No blurred vision. No sore throat. No nausea. No abdominal pain. Normal bowel and bladder movements. No swelling in the legs. Admission Exam Per Admitting Provider GENERAL: The patient is old and frail, not in acute distress. VITAL SIGNS: Temperature 36.5, pulse 54, respiratory rate 19, blood pressure 145/97 and oxygen 97% on room air. HEENT: No pallor. No icterus. Pupils are equal, round and reactive to light. NECK: No JVD. No neck masses. No carotid bruits. CARDIOVASCULAR: S1, S2 heard. Bradycardia. No murmurs. RESPIRATORY SYSTEM: Normal AP diameter. No accessory muscle use. No wheezing. No crackles. ABDOMEN: Soft. Bowel sounds present. Nontender. No distention. CENTRAL NERVOUS SYSTEM: Cranial nerves II through XII grossly intact. Nonfocal. EXTREMITIES: No edema. No erythema. Principal Diagnosis Shortness of breath Recent myocardial infarction (Presence of stent in LAD coronary artery) Paroxysmal atrial fibrillation: Prolonged QT interval Bradycardia Hypothyroidism Pre-diabetes vs Type 2 diabetes without halfway current use of insulin (HbA1c 6.3) Discharge Exam Constitutional comfortable Eyes PERRL, conjunctivae normal, anicteric sclerae EOM intact bilaterally ENMT external ear and nose normal, oropharynx normal Neck normal visual inspection Respiratory normal respiratory effort, lungs clear to auscultation Cardiovascular Rate/Rhythm: regular rhythm and + bradycardic Gastrointestinal (Abdomen) normal bowel sounds, soft, nontender, no hepatosplenomegaly Musculoskeletal Head/Neck/Chest: normocephalic and head atraumatic Neurologic PERRL, EOMI, accommodation nl, no face palsy, no dysarthria CN's II-XI intact bilaterally Psychiatric A+Ox3, euthymic affect Discharge Data Allergies Allergy/AdvReac Type Severity Reaction Status Date / Time allopurinol Allergy Unknown Verified 01/03/19 21:16 amlodipine Allergy Unknown Verified 01/03/19 21:16 ciprofloxacin [From Cipro] Allergy Unknown Verified 01/03/19 21:16 nifedipine Allergy Unknown Verified 01/03/19 21:16 NSAIDS (Non-Steroidal Allergy Unknown Verified 01/03/19 21:16 Anti-Inflamma oxybutynin [From Ditropan] Allergy Unknown Verified 01/03/19 21:16 Gchkekb-Ocl-Pku Reductase Allergy Unknown Verified 01/03/19 21:16 Inhibitor sulfamethoxazole AdvReac CENTRAL Verified 01/03/19 21:16 [From Bactrim] NERVOUS SYSTEM DYSFUNCTION trimethoprim [From Bactrim] AdvReac CENTRAL Verified 01/03/19 21:16 NERVOUS SYSTEM DYSFUNCTION Consultations 01/03/19 22:23 ED Decision to Admit Stat 01/04/19 00:28 Consult Case Management - Discharge Planning Routine 01/04/19 08:00 Consult Cardiology Routine Ordered Studies 01/03/19 23:22 CT angio chest PE protocol Urgent Hospital Course (1) SOB (shortness of breath): This is an 88-year-old female with a past medical history significant for type 2 diabetes, diastolic heart failure, hypertension, hyperlipidemia, atrial fibrillation and hypothyroidism who was recently in the hospital who was admitted on 12/25/2018 and discharged on 12/30/2018. At that time, she had a non-ST elevated myocardial infarction, status post drug-eluting stent to left anterior descending and during the hospitalization, she developed atrial fibrillation for which she was started on amiodarone and was discharged Shortness of breath -Main complaint is shortness of breath on presentation of not being able to a deep full breath -admission CTA: No pulmonary emboli identified. No consolidation to suggest pneumonia -no acute pulmonary events during hospital stay to date as patient has been on room air -CXR on 01/05/19 re-affirms no lung infiltrates Recent myocardial infarction: Paroxysmal atrial fibrillation: Presence of stent in LAD coronary artery: Prolonged QT interval Bradycardia -initially patient was started on heparin drip on admission because of mildly elevated troponins that peaked at 0.06 and concerns that these levels may reflect a cardiac re-infarction -Telemetry monitoring remarkable for bradycardia into the 40s -cardiology service has evaluated the patient in AM of 01/03/19 and stopped the heparin drip as the abnormal admission EKG demonstrating changes consistent with recent myocardial infarction. repeat echocardiogram on 01/04/19 shows EF 60 to 65% with mild anterior apical hypokinesis with otherwise normal wall motion and cardiology interpretation that this echocardiogram is no change compared to the echocardiogram on 12/27/18 -With evidence of QT prolongation, amiodarone placed on hold. Continue oral beta-geraldine therapy metoprolol 25 mg BID and telemetry monitoring -Dual antiplatelet therapy aspirin 81 mg daily and clopidogrel 75 mg daily must be continued for minimum of 6 months post percutaneous intervention -Other cardiovascular medications will be continued as previously ordered of atorvastatin 20 mg and lisinopril 5 mg daily -01/05/[address] Duncan that patient's metoprolol was held by [facility] staff today. He would like patient to have morning dose of the metoprolol before patient is discharged. He advises patient to continue metoprolol twice a day. He does not want patient to be on amiodarone at home Type 2 diabetes without intermediate project manager current use of insulin vs prediabetes -check HbA1c 6.3 -discussed with patient and family members about avoiding simple sugars in diet and no need for insulin at home at this time Hypothyroidism -Levothyroxine was reduced from 112 to 50 mcg on last admission -continue as 50 mcg daily -TSH as 0.073 (which is an improvement compared to 12/28/18 labs) and normal free T4 DVT prophylaxis: SCDs son [phone] Discharge Instructions Patient is discharged and should no longer take amiodarone at home appointments 01/08/2019 1:00 PM Provider Ananya Staples MD Department General Internal Medicine [facility] 01/18/2019 1:00 PM Provider Jamal Valente MD Department Cardiology, [facility] 02/05/2019 2:20 PM Provider Ananya Staples MD Department General Internal Medicine [facility] 03/27/2019 1:30 PM Provider Jamal Valente MD Department Cardiology, [facility] Main Discharge diagnosis: Shortness of breath Recent myocardial infarction (Presence of stent in LAD coronary artery) Paroxysmal atrial fibrillation: Prolonged QT interval Bradycardia Hypothyroidism Pre-diabetes vs Type 2 diabetes without halfway current use of insulin (HbA1c 6.3) Total Time Total Time Spent Total Time Spent (In Minutes): 40 minutes Total Time Includes: Examination of the Patient, Discharge Planning, Medication Reconciliation and Communication With Other Providers Discharge Plan Discharge Items Patient Disposition: Home - Self-Care Reason For Visit: SOB Discharge Diagnosis: Shortness of breath Recent myocardial infarction (Presence of stent in LAD coronary artery) Paroxysmal atrial fibrillation: Prolonged QT interval Bradycardia Hypothyroidism Pre-diabetes vs Type 2 diabetes without intermediate project manager current use of insulin (HbA1c 6.3) Condition on Discharge: Good Activity: Resume your previous activity Non-emergency contact: Primary Care Provider and Ict Business Development Manager Call non-emergency contact if: you have any medication questions Follow-up/Referrals: Ananya Staples MD [Primary Care Provider] - Diet: Heart Healthy Diet Comment: avoid simple sugars Addtl Attending Provider Instructions: Discharge Instructions Patient is discharged and should no longer take amiodarone at home appointments 01/08/2019 1:00 PM Provider Ananya Staples MD Department General Internal Medicine [facility] 01/18/2019 1:00 PM Provider Jamal Valente MD Department Cardiology, [facility] 02/05/2019 2:20 PM Provider Ananya Staples MD Department General Internal Medicine [facility] 03/27/2019 1:30 PM Provider Jamal Valente MD Department Cardiology, [facility] Pending Studies at Discharge: No Stand-Alone Forms: My [employer] Medications and DC Order Prescriptions: Continued polyethylene glycol 3350 [Miralax] 17 gram Powder In Packet 8.5 - 17 g PO QAM RF: 0 fexofenadine [Pamela Allergy] 180 mg Tablet 180 mg PO QAM RF: 0 aspirin [Aspir-81] 81 mg Tablet,Delayed Release (Dr/Ec) 81 mg PO QAM RF: 0 triamcinolone acetonide 0.025 % Cream 1 applic TOPICAL BID PRN (Reason: APPLY TO BACK & NECK) RF: 0 hydrocortisone 1 % Cream 1 applic FL UD PRN (Reason: AFTER EACH BM) RF: 0 cranberry 400 mg Capsule 2,400 mg PO QAM RF: 0 omeprazole 20 mg capsule,delayed release(DR/EC) 20 mg PO QAM RF: 0 fluocinonide 0.05 % solution 1 applic topical BID PRN (Reason: SCALP) RF: 0 Rachelle-C with Bioflavonoids 500-200 mg Tablet 1 tab PO UD RF: 0 darifenacin [Enablex] 15 mg tablet extended release 24 hr 15 mg PO QAM RF: 0 Tucks (witch phi) 50 % Pads, Medicated 1 pad TOPICAL BID PRN (Reason: Hemorrhoids) RF: 0 latanoprost 0.005 % drops 1 drp ophthalmic (eye) HS RF: 0 calcium carbonate-vitamin D3 [Calcium 600 + D(3)] 600 mg(1,500mg) -400 unit Tablet 1 tab PO QAM RF: 0 lisinopril 5 mg tablet 5 mg PO DAILY RF: 0 atorvastatin 20 mg Tablet 20 mg PO QAM 30 Days Qty: 30 RF: 2 clopidogrel 75 mg Tablet 75 mg PO QAM 30 Days Qty: 30 RF: 2 metoprolol tartrate 25 mg Tablet 25 mg PO BID 30 Days Qty: 60 RF: 2 nitroglycerin [Nitrostat] 0.4 mg Tablet, Sublingual 0.4 mg sublingual PRN PRN (Reason: chest pain) Qty: 14 RF: 0 levothyroxine [Synthroid] 50 mcg Tablet 50 mcg PO DAILYBB 30 Days Qty: 30 RF: 2 furosemide 20 mg tablet 20 mg PO QAM PRN (Reason: edema) Qty: 0 RF: 0 Discontinued amiodarone 200 mg Tablet 200 mg PO BIDM 30 Days Qty: 60 RF: 2 Discharge Orders: Discharge Order (Routine); Ordered 01/05/19 Ordered By: Luis Alfredo Smith Admission Data Admit Date/Time: 01/03/19 23:22 Attending Provider: Luis Alfredo Smithit Provider: Sebastian Sheppard Primary Care Provider: Ananya Staples Other Providers: Sebastian Sheppard ; Jamal Valente
--- NOTE | 2019-01-05 12:37 | Cardiology Progress Note ---
Date of Service January 05, 2019 Assessment & Plan (1) SOB (shortness of breath): (2) Recent myocardial infarction: (3) Paroxysmal atrial fibrillation: (4) Presence of stent in LAD coronary artery: (5) Prolonged QT interval: Patient appears euvolemic and compensated without evidence of diastolic heart failure. No evidence of evolving acute coronary syndrome. Patient may be discharged home today. Discontinue amiodarone. Continue beta-geraldine in addition to other cardiovascular medications as previously ordered. Stressed importance of continuing dual antiplatelet therapy for minimum of 6 months post percutaneous intervention. Outpatient cardiology follow-up in 2-4 weeks. Subjective Patient seen exam at the bedside. Feeling well from a cardiovascular perspective. No recurrent shortness of breath or abdominal discomfort o vernight. She denies orthopnea, PND, or lower extremity edema. Remains in sinus rhythm on telemetry. Amiodarone placed on hold. Son is present at bedside. He offers no additional concerns/complaints this time. Review of Systems Review of Systems: All systems reviewed & are unremarkable except as noted in HPI & below Physical Exam Physical Exam: General: NAD, AAO x3, well nourished. HEENT: Normocephalic. Atraumatic. Conjunctiva pink, no scleral icterus. Neck: No carotid bruits, the carotid upstrokes are brisk. No JVD. No HJR Heart: Regular normal S-1 and S-2 no S-3 or S-4 gallop. No murmurs or rub appreciated. PMI is not displaced. No RV heave. Lungs: Clear bilateral without rales , rhonchi, or wheeze. Abdomen: Normal bowel sounds. Soft. Nontender. No masses or organomegaly. No abdominal bruits. Extremities: No clubbing, cyanosis, or edema. Pulses: radial=2/4, Dorsalis pedis =2/4, posterior tibial=2/4. Neuro: Cranial nerves grossly intact. No focal motor deficit. Results & Data Vital Signs (Past 12 Hours) Vital Signs Temp Pulse Pulse Resp BP BP Pulse Ox 01/05/19 11:09 36.3 C L 50 L 16 152/65 H 99 01/05/19 11:08 36.6 C 57 L 51 L 16 134/73 122/58 L 97 01/05/19 11:06 36.3 C L 50 L 16 01/05/19 07:04 36.6 C 57 L 16 122/58 L 97 01/05/19 04:05 36.8 C 68 16 126/69 98
== END 2019-01-05 11:36 | disposition home or self-care (01) ==
LOC: 2E 20:23 → ED 20:23 → 2E 23:57

== ENCOUNTER 2019-03-24 09:46 | Inpatient (IN) ==
[2019-03-24] MEDS ORDERED: SODIUM CHLORIDE 0.9% 1000ML 500 ML IV ONE (10:04)
[2019-03-24] MEDS ORDERED: METOPROLOL TARTRATE 1 MG/ML VIAL IV STA ×2 (10:04→15:37)
[2019-03-24] MEDS ORDERED: ASPIRIN 81 MG CHEW PO STA (10:04)
[2019-03-24 10:17] LABS: Basophils # (auto) 0.01 K/uL (0-0.2); Basophils % (auto) 0.1 %; Eosinophils # (auto) 0.03 K/uL (0-0.5); Eosinophils % (auto) 0.2 %; Hematocrit (blood only) 42.5 % (37-47); Hemoglobin 14.6 g/dL (12.0-16.0); Immature Granulocytes # (auto) 0.03 K/uL (0.00-0.02); Immature Granulocytes % (auto) 0.2 %; Lymphocytes # (auto) 1.52 K/uL (1.2-3.4); Lymphocytes % (auto) 12.2 %; Mean Corpuscular Hemoglobin 29.9 pg (25-34); Mean Corpuscular Hgb Conc 34.4 g/dL (32-36); Mean Corpuscular Volume 86.9 fL (80-100); Mean Platelet Volume 10.7 fL (7.4-10.4); Monocytes # (auto) 1.58 K/uL (0.11-0.59); Monocytes % (auto) 12.7 %; Neutrophils # (auto) 9.31 K/uL (1.4-6.5); Neutrophils % (auto) 74.6 %; Platelet Count 138 K/uL (130-400); RDW Coefficient of Variation 13.5 % (11.5-14.5); RDW Standard Deviation 42.5 fL (36.4-46.3); Red Blood Count 4.89 M/uL (4.2-5.4); White Blood Count 12.48 K/uL (4.8-10.8)
[2019-03-24 10:28] LABS: INR 1.2 (0.9-1.1); Partial Thromboplastin Ratio 1.1; Partial Thromboplastin Time 29.9 Seconds (21.0-31.0); Prothrombin Time 11.8 Seconds (9.0-12.0)
[2019-03-24 10:36] LABS: Alanine Aminotransferase 26 U/L (12-78); Albumin Level 3.3 gm/dl (3.4-5.0); Aspartate Aminotransferase 11 U/L (15-37); BUN Creatinine Ratio 17.6 (10-20); Bilirubin Direct 0.3 mg/dl (0-0.2); Blood Urea Nitrogen 16 mg/dl (7-18); Calcium 9.8 mg/dl (8.5-10.1); Carbon Dioxide 28 mmol/L (21-32); Chloride 105 mmol/L (98-107); Est GFR (African American) 64.8; Est GFR (Non-African American) 55.9; Glucose 140 mg/dl (70-99); Magnesium 1.9 mg/dl (1.8-2.4); Potassium 3.9 mmol/L (3.5-5.1); Sodium 136 mmol/L (136-145)
[2019-03-24 10:47] LABS: Alkaline Phosphatase 71 U/L (45-117); Bilirubin,Total 1.3 mg/dl (0.2-1); Thyroid Stimulating Hormone 0.226 uIu/ml (0.300-4.500); Total Protein 7.2 gm/dl (6.4-8.2); Troponin I < 0.015 ng/ml (0-0.045)
--- NOTE | 2019-03-24 11:29 | XRay Report ---
XR chest 1V portable CLINICAL HISTORY: 88 years-old Female presenting with Chest Pain. TECHNIQUE: Portable upright AP view of the chest was obtained. COMPARISON: 01/05/2019. FINDINGS: Atherosclerosis of the aortic arch. Tortuosity of the descending thoracic aorta. Cardiac silhouette e nlarged. No focal opacity. No large effusion or pneumothorax. Degenerative changes of the thoracic sp ine. Upper abdomen normal. IMPRESSION: 1. Cardiomegaly. No other convincing evidence of acute cardiopulmonary disease. ACT 112: Negative or not required by law. Electronically signed by: Moiz Coffey M.D. 03/24/2019 11:27 AM
--- NOTE | 2019-03-24 12:57 | History & Physical Report ---
Date of Service March 24, 2019 Assessment & Plan (1) Atrial flutter with rapid ventricular response: (2) Substernal chest pain: This is a 88-year-old female who has significant past medical history of CAD with recent FRANCIA to LAD 12/26/2018, diastolic CHF, HLD, PAF transient post stenting, T2DM, hypothyroidism, diastolic CHF, CKD stage III, glaucoma who presents to ED secondary to chest discomfort x2 days. Initial work-up revealed atrial flutter with heart rate 129. She received IV bolus 500 mL, 5 mg IV Lopressor, which improved heart rates to 7290s with apparent normal rhythm. Lab work remarkable for normal troponin, elevated T4 1.72, low TSH 0.226, Alex 140, T bili 1.3, direct bili 0.3, K3.9, mag 1.9, leukocytosis 12.48. Chest x-ray revealed cardiomegaly but otherwise unremarkable. Possible etiology include poor po intake/dehydration, transient PAF given atrial enlargement on echo, mild hyperthyroid, infection Pt does meet SIRS criteria with WBC 12k, HR > 90 - feel infection less likely but will complete work up admit to PCU monitor on telemetry consult cardiology -given recurrence of atrial arrhythmia Chadsvasc 6 (age, F, CAD, DM, Hx of CHF) - hold on IV heparin given current normal sinus rhythm -defer to cardiology, per Dr. Luna note 12/28 not started on OAC due fo frailty and need for DAPT r/o infection with UA C&S ( hx of recurrent UTI, pt currentl denies sx) replete K and Mag to keep > 4.0 and 2.0 respectively IVF 1L x 1 (3) Intermittent confusion: Patient routinely goes shopping Tuesday at 9 AM and recalls not going yesterday due to not feeling well, but difficult to recall events from that point on yes terday Remembers being in recliner mostly all day, but felt, "out of it." Obtain CT head w/o contast (4) CAD (coronary artery disease): Initial troponin WNL, ECG without ischemic changes Trend troponin every 6x2 to rule out ischemic etiology Continue dual antiplatelet therapy aspirin, Plavix, metoprolol, lisinopril (5) Diabetes mellitus, type II: Well-controlled, last A1c 01/05 6.2 Diet controlled Monitor Accu-Checks, low-dose NovoLog sliding scale if needed (6) Hypothyroidism: TSH 0.226, free T4 high at 1.72 During hospitalization 12/2018 her levothyroxine was decreased from 112 mcg to 50 mcg. Recently on 03/06 in outpatient setting her levothyroxine was increased to 75 mcg (TSH 8.06, free T4 1.65) Today she does appear to be mildly overcompensated with hyperthyroid Given significant recent adjustments, will continue current levothyroxine dose and recommend repeat in 2 weeks as outpatient (7) Diastolic heart failure: History of diastolic dysfunction per echocardiogram Currently compensated and euvolemic Monitor daily weights, strict I's and O's Continue metoprolol, lisinopril She takes Lasix on as-needed basis for edema (8) HLD (hyperlipidemia): Continue statin Fasting lipid panel in a.m. (9) Glaucoma: Continue latanoprost eyedrops (10) DVT prophylaxis: SCD/teds Patient on dual antiplatelet therapy with aspirin and Plavix Monitor daily need for chemoprophylaxis Disposition: Admit to PCU Follow-up: PCP Dr. Staples upon discharge along with appropriate cardiology follow-up Patient was seen and examined in collaboration with Dr. Hull, please see addendum History of Present Illness Chief Complaint: Substernal chest discomfort x2 days. Primary Care Provider: Ananya Staples MD This is a 88-year-old female who has significant past medical history of CAD with recent FRANCIA to LAD 12/26/2018, diastolic CHF, HLD, PAF transient post stenting, T2DM, hypothyroidism, diastolic CHF, CKD stage III, glaucoma who presents to ED secondary to chest discomfort x2 days. She lives in independent living and over the past 2 days noted substernal chest discomfort with radiation to back. Pain was constant, described as "dull ache," rated a 1/10, made better with conversation, nothing made it worse, never felt anything like this in the past and not similar to prior presentation of NSTEMI. Did not try anything o [id number] or nitro for relief. She elicits that over the past 2 days she has not felt well. Every Tuesday at 9 AM she go shopping with a group, and she recalls telling her group that she was not going to go and she did not feel well, but she does not recall most of the events from that day. Recall sitting in her recliner and getting numerous calls, but not answering the phone. Her son finally did reach her and was very concerned. She thinks she may have slept most of the day and woke up at approximately 3-4 AM this morning. She has decreased p.o. intake over the past 2 days, decreased appetite. She has had profound fatigue ever since having her MO and attributes this to her metoprolol. He denies any recent illness, fever, chills, sweats, lightheadedness, dizziness, syncope, fall, palpitations, shortness breath at rest, shortness of breath with exertion, hemoptysis, cough, nausea, vomiting, abdominal pain, dysuria, increased urgency or frequency with urination, hematuria, melena, hematochezia. Has not had a BM for several days but denies any abdominal pain. "I have been eating anything so I do not have to move my bowels." She admits to being compliant with her medications specifically dual antiplatelet therapy. Of significance patient confined 12/25 to 12/30 secondary to NSTEMI. Patient underwent cardiac cath with FRANCIA to LAD. Transiently she did develop atrial f ibrillation which was treated with IV amiodarone. She was opted to not be treated with oral anticoagulation secondary to need for dual antiplatelet therapy. Also during hospitalization she was found to have iatrogenic hyperthyroidism. Her levothyroxine dose was decreased from 112 mcg to 50 mcg. She was discharged to home and rehospitalized in January 04, 2019 secondary to shortness of breath. Cardiac work-up at that time was negative. She did have repeat echocardiogram which revealed EF 60 to 65% with mild anterior and apical hypokinesis, unchanged from prior. Also noted was enlargement of left atrium, mild. Initial work-up revealed atrial flutter with heart rate 129. She received IV bolus 500 mL, 5 mg IV Lopressor, which improved heart rates to 7290s with apparent normal rhythm. Lab work remarkable for normal troponin, elevated T4 1.72, low TSH 0.226, Alex 140, T bili 1.3, direct bili 0.3, K3.9, mag 1.9, leukocytosis 12.48. Chest x-ray revealed cardiomegaly but otherwise unremarkable. Allergies Allergy/AdvReac Type Severity Reaction Status Date / Time allopurinol Allergy Unknown Verified 03/24/19 10:58 amlodipine Allergy Unknown Verified 03/24/19 10:58 ciprofloxacin [From Cipro] Allergy Unknown Verified 03/24/19 10:58 nifedipine Allergy Unknown Verified 03/24/19 10:58 NSAIDS (Non-Steroidal Allergy Unknown Verified 03/24/19 10:58 Anti-Inflamma oxybutynin [From Ditropan] Allergy Unknown Verified 03/24/19 10:58 [id number]-Svh-[id number] Reductase Allergy Unknown Verified 03/24/19 10:58 Inhibitor sulfamethoxazole AdvReac CENTRAL Verified 03/24/19 10:58 [From Bactrim] NERVOUS SYSTEM DYSFUNCTION trimethoprim [From Bactrim] AdvReac CENTRAL Verified 03/24/19 10:58 NERVOUS SYSTEM DYSFUNCTION Home Medications Home Medications Medication Instructions Recorded Confirmed Type Rachelle-C with Bioflavonoids 1 tab PO UD 07/19/18 03/24/19 History Tucks (witch phi) 1 pad TOPICAL BID PRN 07/19/18 03/24/19 History aspirin [Aspir-81] 81 mg PO QAM 07/19/18 03/24/19 History cranberry 2,400 mg PO QAM 07/19/18 03/24/19 History darifenacin [Enablex] 15 mg PO QAM 07/19/18 03/24/19 History fexofenadine [Pamela Allergy] 180 mg PO QAM 07/19/18 03/24/19 History fluocinonide 1 applic TOPICAL BID PRN 07/19/18 03/24/19 History hydrocortisone 1 applic WV UD PRN 07/19/18 03/24/19 History polyethylene glycol 3350 [Miralax] 8.5 - 17 g PO QAM PRN 07/19/18 03/24/19 History triamcinolone acetonide 1 applic TOPICAL BID PRN 07/19/18 03/24/19 History calcium carbonate-vitamin D3 1 tab PO QAM 12/25/18 03/24/19 History [Calcium 600 + D(3)] latanoprost 1 drp OPHTHALMIC (EYE) HS 12/25/18 03/24/19 History lisinopril 5 mg PO DAILY 12/25/18 03/24/19 History atorvastatin 20 mg PO QAM 30 Days #30 tab 12/30/18 03/24/19 Rx clopidogrel 75 mg PO QAM 30 Days #30 tab 12/30/18 03/24/19 Rx nitroglycerin [Nitrostat] 0.4 mg SUBLINGUAL PRN PRN #14 tab 12/30/18 03/24/19 Rx furosemide 10 - 20 mg PO QAM PRN 03/24/19 03/24/19 History levothyroxine [Synthroid] 75 mcg PO QAM 03/24/19 03/24/19 History metoprolol tartrate 12.5 mg PO BID 03/24/19 03/24/19 History pantoprazole 40 mg PO QAM 03/24/19 03/24/19 History Past Med/Surg History Medical History (Updated 03/24/19 @ 14:30 by Dolly Oliveira PA-C) CAD (coronary artery disease) Diabetes mellitus, type II (Chronic) Diastolic heart failure (Chronic) Glaucoma HLD (hyperlipidemia) (Chronic) HTN (hypertension) (Chronic) Hyponatremia (Chronic) Hypothyroidism (Chronic) Presence of stent in LAD coronary artery Stable angina (Acute) Surgical History (Updated 03/24/19 @ 12:54 by Dolly Oliveira PA-C) History of History of partial colectomy (Chronic) History of percutaneous coronary intervention Cardiac catheterization December 26, 2018 95% mid LAD stenosis, 30% ostial circumflex, 50% small posterior descending artery stenosis with resultant drug-eluting stent placed in mid LAD Hx of partial cystectomy (Chronic) S/P bilateral hip replacements (Chronic) Social History Preferred Language: Sami Communication Ability: Effective Counter Former Required: No Beliefs That Will Affect Care: Mosque Mosque Beliefs: Zoroastrianism marital status: Single Current Living Situation: Alone Current Living Situation Comment: ind living at [place] current occupational status: retired Other Information That Helps Us Care for You: No Feels Safe at Home: Yes Safety Concerns: Feels Safe At This Time Smoking Status: Former smoker Do You Dip or Chew Tobacco: No ; Smoking End Date: 30 years ago at the age of 41 years 2 packs per day. ; Second Hand Exposure: No ; Tobacco Cessation Education Requested by Patient: No Hx Alcohol Use: No Hx Substance Use: No Review of Systems Review of Systems: All systems reviewed & are unremarkable except as noted in HPI & below Physical Exam Physical Exam: Constitutional: Elderly, female, WD/WN, vitals as above, NAD, sitting up in bed, pleasant, conversing easily Head: Normocephalic, Atraumatic Eyes: PERRL, conjunctivae normal, anicteric sclerae ENMT: external ear and nose normal, oropharynx normal Neck: trachea midline, no thyromegaly normal visual inspection Respiratory: normal respiratory effort, lungs clear to auscultation, no wheeze, rales, rhonchi. Normal insp/exp effort, no accessory muscle use Cardiovascular: RRR, subtle murmur 1/6 best LUSB, no edema Vessels: no JVD or carotid bruit Chest: normal inspection of chest Abdomen: normal bowel sounds, soft, nontender, no hepatosplenomegaly Musculoskeletal: no cyanosis or clubbing, extremities motor strength 5/5 Skin: + Pupura lesion R ACW x 1, otherwise no rashes, warm and dry normal turgor Neurologic: PERRL, EOMI, accommodation nl, no face palsy, no dysarthria CN's II-XI intact bilaterally and moves all extremities Psychiatric: A+Ox3, euthymic affect Lymphatic: no cervical or axillary lymphadenopathy : deferred Results & Data Vital Signs (Past 12 Hours) Vital Signs Temp Pulse Resp BP Pulse Ox 03/24/19 10:29 104 H 117/86 03/24/19 09:49 36.7 C 148 H 20 132/94 96 03/24/19 09:46 96 Laboratory Results Short CBC 03/24/19 03/24/19 03/24/19 Range/Units 10:09 10:09 10:09 WBC 12.48 H (4.8-10.8) K/uL RBC 4.89 (4.2-5.4) M/uL Hgb 14.6 (12.0-16.0) g/dL Hct 42.5 (37-47) % MCV 86.9 (80-100) fL MCH 29.9 (25-34) pg MCHC 34.4 (32-36) g/dL RDW Std Deviation 42.5 (36.4-46.3) fL RDW Coeff of Kamala 13.5 (11.5-14.5) % Plt Count 138 (130-400) K/uL MPV 10.7 H (7.4-10.4) fL Immature Gran % (Auto) 0.2 % Neut % (Auto) 74.6 % Lymph % (Auto) 12.2 % Crisp % (Auto) 12.7 % Eos % (Auto) 0.2 % Baso % (Auto) 0.1 % Immature Gran # (Auto) 0.03 H (0.00-0.02) K/uL Neut # (Auto) 9.31 H (1.4-6.5) K/uL Lymph # (Auto) 1.52 (1.2-3.4) K/uL Crisp # (Auto) 1.58 H (0.11-0.59) K/uL Eos # (Auto) 0.03 (0-0.5) K/uL Baso # (Auto) 0.01 (0-0.2) K/uL PT 11.8 (9.0-12.0) Seconds INR 1.2 H (0.9-1.1) APTT 29.9 (21.0-31.0) Seconds PTT Ratio 1.1 Sodium 136 (136-145) mmol/L Potassium 3.9 (3.5-5.1) mmol/L Chloride 105 (98-107) mmol/L Carbon Dioxide 28 (21-32) mmol/L Anion Gap 3.0 (3-11) BUN 16 (7-18) mg/dl Creatinine 0.91 (0.6-1.2) mg/dl Est Cr Clr Drug Dosing 37.0 ml/min Est GFR ( Amer) 64.8 Est GFR (Non-Af Amer) 55.9 BUN/Creatinine Ratio 17.6 (10-20) Glucose 140 H (70-99) mg/dl Calcium 9.8 (8.5-10.1) mg/dl Magnesium 1.9 (1.8-2.4) mg/dl Total Bilirubin 1.3 H (0.2-1) mg/dl Direct Bilirubin 0.3 H (0-0.2) mg/dl AST 11 L (15-37) U/L ALT 26 (12-78) U/L Alkaline Phosphatase 71 (45-117) U/L Troponin I < 0.015 (0-0.045) ng/ml Total Protein 7.2 (6.4-8.2) gm/dl Albumin 3.3 L (3.4-5.0) gm/dl TSH 0.226 L (0.300-4.500) uIu/ml BMP 03/24/19 10:09 Sodium 136 Potassium 3.9 Chloride 105 Carbon Dioxide 28 BUN 16 Creatinine 0.91 Glucose 140 H Calcium 9.8 Cardiac Enzymes 03/24/19 Range/Units 10:09 Troponin I < 0.015 (0-0.045) ng/ml Liver Function 03/24/19 Range/Units 10:09 Total Bilirubin 1.3 H (0.2-1) mg/dl Direct Bilirubin 0.3 H (0-0.2) mg/dl AST 11 L (15-37) U/L ALT 26 (12-78) U/L Alkaline Phosphatase 71 (45-117) U/L Albumin 3.3 L (3.4-5.0) gm/dl Diagnostic Findings CXR:IMPRESSION: 1. Cardiomegaly. No other convincing evidence of acute cardiopulmonary disease. Medications Administered Discontinued Medications Aspirin (Aspirin Chew) 324 mg PO NOW STA Stop: 03/24/19 10:05 Last Admin: 03/24/19 10:29 Dose: 324 mg Documented by: [id number] Sodium Chloride (Nss 1000ml) 500 mls @ 999 mls/hr IV .Q31M ONE Stop: 03/24/19 10:34 Last Infusion: 03/24/19 11:01 Dose: 0 mls/hr Documented by: [id number] Admin: 03/24/19 10:30 Dose: 999 mls/hr Documented by: [id number] Metoprolol Tartrate (Lopressor) 5 mg IV NOW STA Stop: 03/24/19 10:05 Last Admin: 03/24/19 10:29 Dose: 5 mg Documented by: [id number] ECG Rate (beats per minute): 129 Rhythm: atrial flutter Additional Comments: QTC 418ms Code Status & VTE Plan Code Status Full Code VTE Prophylaxis Plan VTE Prophylaxis will be ordered: Yes Supervising Physician Co-Signing Physician Notes I have seen and examined the patient and have discussed the case with the provider above. I agree with the assessment and plan as stated with the following exceptions. 88 yo F with h/o CAD and recent FRANCIA placed in Dec 2018. She has been doing well on DAPT, however, she reports chronic severe fatigue she thinks it's because of all the medications she is taking. She reports that she is still fatigued despite the reduction in the Metoprolol recently per Dr. Valente. This chest pain is very unremarkable to her and she states that it is currently not present, and is only noticeable when she is sitting quietly. It is described as a 1/0 dull ache across the chest. There is no exacerbation of this when she exerts herself. She denies any palpitations or feeling like her heart is racing fast. She denies any symptoms of overt hyperthyroidism, however, she does report having some hair fallout. She was noted to have a short course of amiodarone for atrial fibrillation seen post-cardiac cath in Dec. There is a concern for possible amiodarone-induced thyrotoxicity in her, and this is being monitored as outpatient. For now would recommend continuation of her current home dose of 75mcg PO daily. She is now back in atrial fibrillation with RVR with a rate into the 140s. Although long-term anticoagulation may not be the best plan for her, will start her on a heparin drip here for stroke prophylaxis until the Caridologist has an opportunity to discuss her options with her. Mone to help control the rate now. A beta- geraldine is preferred in the setting of CAD with recent stent placement. However, with the ?fatigue from beta-geraldine, we may need to consider a different rate control strategy going home. Physical exam reveals a WNWD female in NAD. She is euvolemic and oriented. Rhythm is irregular and tachycardic. S1/2 heard without evidence of murmurs. Lungs are clear to auscultation. Abdomen is soft and nontender without d istension. No peripheral edema is present. Her son was at bedside and is very involved with her care. All questions were answered to their satisfaction, and will cont hospitalization overnight on telemetry. DO Kurtis
--- NOTE | 2019-03-24 13:14 | CT Scan Report ---
CT head/brain wo con CLINICAL HISTORY: 88 years-old Female presenting with memory loss. TECHNIQUE: Multidetector CT imaging of the head was performed without the use of intravenous contrast . IV contrast: None. One or more dose lowering techniques were used consistent with the principles of ALARA (as low as reasonably achievable), including automatic exposure control, mA or kV adjustment t o individual patient size, and/or use of iterative reconstruction. COMPARISON: None. CT DOSE (mGy.cm): The estimated cumulative dose is 537.48 mGy.cm. FINDINGS: Chromium Plater topogram: Unremarkable. Proportional ventricular and sulcal prominence, likely age-related parenchymal volume loss. No hemorr rohan. Periventricular and subcortical white matter hypoattenuation, nonspecific but likely indicative of chronic small vessel ischemic change. No acute territorial infarct. No mass effect or midline lisa ft. No extra-axial fluid collection. Paranasal sinuses and mastoid air cells clear. Calvarium intact. IMPRESSION: 1. Chronic small vessel ischemic change. No acute intracranial abnormality. ACT 112: Negative or not required by law. Electronically signed by: Moiz Coffey M.D. 03/24/2019 1:13 PM
[2019-03-24] MEDS ORDERED: GLUCOSE 10 TABS/TUBE PO PRN (14:13)
[2019-03-24] MEDS ORDERED: NITROGLYCERIN SL 0.4 MG/TAB TAB SL PRN (14:13)
[2019-03-24] MEDS ORDERED: POLYETHYLENE (MIRALAX) 17 GM PACK PO PRN (14:13)
[2019-03-24] MEDS ORDERED: ALUMINUM/MAGNESIUM SUSP 30 ML UDC PO PRN (14:13)
[2019-03-24] MEDS ORDERED: MAGNESIUM SULFATE / D5W 1 GM/100 ML BAG IV ONE (14:13)
[2019-03-24] MEDS ORDERED: NSS + 20MEQ KCL 20 MEQ/1,000 ML BAG IV SCH (14:13)
[2019-03-24] MEDS ORDERED: DEXTROSE 50% 50 ML SYRINGE IV PRN (14:13)
[2019-03-24] MEDS ORDERED: MAGNESIUM HYDROXIDE SUSP 30 ML UDC PO PRN (14:13)
[2019-03-24] MEDS ORDERED: GLUCAGON FOR INJ 1 MG VIAL SQ PRN (14:13)
[2019-03-24] MEDS ORDERED: CARBOHYDRATES FOR HYPOGLYCEMIA PO PRN (14:13)
[2019-03-24] MEDS ORDERED: GLUCOSE 40% GEL 15 GM TUBE PO PRN (14:13)
[2019-03-24] MEDS ORDERED: ACETAMINOPHEN 325 MG TAB PO PRN (14:13)
--- NOTE | 2019-03-24 15:06 | Emergency Department Note ---
Entered by Idania Amaral acting as a scribe for ED Provider Note Name: TARSHA OREILLY Age: 88 Arrives Via: Walk-In Informant: Patient CC: Chest Pain HPI: 88F arrives for evaluation of chest pain that began yesterday. The patient states that she has been experiencing a "dull" pain in her chest and according to her son she has been very disoriented and confused. The patient reports experiencing constipation and has noticed some ecchymosis on her body. The patient denies experiencing any fever/chills, vomiting, headache, melena, diarrhea, pedal edema, or dysuria. The patient also denies any recent falls. The patient's son notes that the patient had a heart attack in January and a stent was placed. The patient has been on dual anti-platelet therapy since her heart attack. ROS: See above HPI for pertinent positives & negatives. A total of 10 systems reviewed and were otherwise negative. Past Medical History:See Below Past Surgical History:See Below Family History:See Below Social History:See Below Home Medications:See Below Allergies:See Below Vitals:BP: 132/94 P: 148 R:20 T: 36.7 O2 Sat: 96 on RA Physical Exam: GENERAL: Patient is elderly appearing and in minimal distress. Mildly dehydrated. EYES: No scleral icterus, unremarkable pupils. ENT: Mucous membranes dry, no nasal congestion. NECK: No masses appreciated, nomeningismus, trachea is midline. RESPIRATORY: No dyspnea. Clear to auscultation and equal bilaterally. No wheeze, no rhonchi. CARDIOVASCULAR: Tachycardic rate and irregular rhythm.No murmurs, rubs, gallops appreciated. GASTROINTESTINAL: Abdomen soft, non-tender, no peritonitis.Bowel sounds positive.No masses appreciated. BACK: No midline tenderness, no CVA tenderness EXTREMITIES: Normal motion all extremities, no cyanosis, no edema. NEUROLOGIC: Alert and oriented, no acute motor or sensory deficits, no focal weakness, cranial nerves grossly intact. SKIN: No rash, no jaundice, no diaphoresis. ED Course: Prior Medical Record, Triage/Nursing Notes, Medications, Allergies reviewed by Me Vital Signs: reviewed and the patient is tachycardic Labs:Reviewed and remarkable for no significant abnormalities Interventions: Saline Lock, NSS bolus 500ml IV, Lopressor 5mg IV Imaging: Radiology results as stated below per my review and the radiologist's interpretation: XR chest 1V portable CLINICAL HISTORY: 88 years-old Female presenting with Chest Pain. TECHNIQUE: Portable upright AP view of the chest was obtained. COMPARISON: 01/05/2019. FINDINGS: Atherosclerosis of the aortic arch. Tortuosity of the descending thoracic aorta. Cardiac silhouette enlarged. No focal opacity. No large effusion or pneumothorax. Degenerative changes of the thoracic spine. Upper abdomen normal. IMPRESSION: 1. Cardiomegaly. No other convincing evidence of acute cardiopulmonary disease. ACT 112: Negative or not required by law. Electronically signed by: Moiz Coffey M.D. 03/24/2019 11:27 AM EKG #1:Per My Interpretation: Indication Chest Pain: Aflutter RVR Variable rate 129 bpm, qtc 418. No Ischemia. Compared to EKG 01/05/19 Aflutter new and lateral T wave inversions have resolved EKG #2: Per My Interpretation: Indication Rate change: NSR vs Aflutter 98 bpm, qtc 459. No Ischemia. Compared to EKG earlier rate has improved and unclear if still aflutter Consults:1128: I spoke with Dolly Aguilar PA-C about the patient's case and Dr. Hull- Hospitalist will accept the patient for further evaluation. Reassessments/Times: 0959: Past medical records reviewed. The patient was evaluated in room B11B. A complete history and physical exam was performed. 1017: Heart rate was down to the 110's 1035: Heart rate in the 70's but still in atrial flutter. Chest pain has improved. 1120: Heart rate is in the 70's. Repeat EKG being done. I discussed the pros and cons of admission with the patient and her son and she would like to stay. Gopal was paged. 1250: Patient's heart rate was 98 and repeat EKG clearly shows atrial flutter. No further intervention at this time. Blood pressure:Elevated - Referred to PCP - Refered to hospitalist Disposition:Hospitalization Differentials:Differential diagnosis includes etiologies such as premature contractions, electrolyte abnormality, cardiac dysrhythmia, thyroid dysfunction, pulmonary embolism, infection, gastrointestinal, as well as others were entertained. Medical Decision Makin yr old pleasant female with substernal chest discomfort and weakness. Aflutter on arrival. Appears she was in tachy arrythmia post stenting 2 months ago for which amio worked, but given thyroid issues that has been held. Tachy improved with IV fluids and Lopressor. She has normal trop thus seems unlikely ACS though given CP will need further evaluation. She was comfortable with initial treatment and will be brought in for further management. No evidence sepsis and symptoms not consistent with PE. Impression: Atrial flutter RVR Substernal chest pain Dehydration. The scribe's documentation has been prepared under my direction and personally reviewed by me in its entirety. I confirm that the note above accurately reflects all work, treatment, procedures, and medical decision making performed by me. Zackary Alves MD Impression & Plan Atrial flutter with rapid ventricular response, Substernal chest pain, Acute dehydration Past Med/Surg History Medical History (Updated 03/24/19 @ 14:30 by Dolly Oliveira PA-C) CAD (coronary artery disease) Diabetes mellitus, type II (Chronic) Diastolic heart failure (Chronic) Glaucoma HLD (hyperlipidemia) (Chronic) HTN (hypertension) (Chronic) Hyponatremia (Chronic) Hypothyroidism (Chronic) Presence of stent in LAD coronary artery Stable angina (Acute) Surgical History (Updated 03/24/19 @ 12:54 by Dolly Oliveira PA-C) History of History of partial colectomy (Chronic) History of percutaneous coronary intervention Cardiac catheterization December 26, 2018 95% mid LAD stenosis, 30% ostial circumflex, 50% small posterior descending artery stenosis with resultant drug-eluting stent placed in mid LAD Hx of partial cystectomy (Chronic) S/P bilateral hip replacements (Chronic) Social History Preferred Language: Micronesian Communication Ability: Effective 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 ; Second Hand Exposur e: No ; Tobacco Cessation Education Requested by Patient: No Hx Alcohol Use: No Hx Substance Use: No Results & Data Vital Signs Vital Signs - 24 hr 03/24/19 09:46 03/24/19 09:49 03/24/19 10:29 Temperature 36.7 C Temperature Source Oral Pulse Rate 148 H 104 H Pulse Rate from SpO2 Sensor Respiratory Rate 20 Blood Pressure 132/94 117/86 Blood Pressure Mean 106 Pulse Oximetry 96 96 Oxygen Delivery Method Room Air Room Air Sepsis Recent Fever Within 48 Hours No Sepsis New/Unexplained Change in Mental Status No Sepsis Action Taken by Nursing No Action Required 03/24/19 10:30 03/24/19 11:00 03/24/19 11:30 Temperature Temperature Source Pulse Rate 76 87 76 Pulse Rate from SpO2 Sensor 76 84 77 Respiratory Rate 26 H 17 21 Blood Pressure 124/79 110/71 103/61 Blood Pressure Mean 86 76 64 Pulse Oximetry 97 96 96 Oxygen Delivery Method Sepsis Recent Fever Within 48 Hours Sepsis New/Unexplained Change in Mental Status Sepsis Action Taken by Nursing 03/24/19 12:00 Temperature Temperature Source Pulse Rate 85 Pulse Rate from SpO2 Sensor 89 Respiratory Rate 15 Blood Pressure 113/70 Blood Pressure Mean 87 Pulse Oximetry 93 Oxygen Delivery Method Sepsis Recent Fever Within 48 Hours Sepsis New/Unexplained Change in Mental Status Sepsis Action Taken by Fdc Medications Current Medication List: was personally reviewed by me Laboratory Data Attestation: I reviewed the patient's lab results. Result diagrams: 03/24/19 10:09 03/24/19 10:09 Lab Results 03/24/19 03/24/19 03/24/19 Range/Units 10:09 10:09 10:09 WBC 12.48 H (4.8-10.8) K/uL RBC 4.89 (4.2-5.4) M/uL Hgb 14.6 (12.0-16.0) g/dL Hct 42.5 (37-47) % MCV 86.9 (80-100) fL MCH 29.9 (25-34) pg MCHC 34.4 (32-36) g/dL RDW Std Deviation 42.5 (36.4-46.3) fL RDW Coeff of Kamala 13.5 (11.5-14.5) % Plt Count 138 (130-400) K/uL MPV 10.7 H (7.4-10.4) fL Immature Gran % (Auto) 0.2 % Neut % (Auto) 74.6 % Lymph % (Auto) 12.2 % [place] % (Auto) 12.7 % Eos % (Auto) 0.2 % Baso % (Auto) 0.1 % Immature Gran # (Auto) 0.03 H (0.00-0.02) K/uL Neut # (Auto) 9.31 H (1.4-6.5) K/uL Lymph # (Auto) 1.52 (1.2-3.4) K/uL [place] # (Auto) 1.58 H (0.11-0.59) K/uL Eos # (Auto) 0.03 (0-0.5) K/uL Baso # (Auto) 0.01 (0-0.2) K/uL PT 11.8 (9.0-12.0) Seconds INR 1.2 H (0.9-1.1) APTT 29.9 (21.0-31.0) Seconds PTT Ratio 1.1 Sodium 136 (136-145) mmol/L Potassium 3.9 (3.5-5.1) mmol/L Chloride 105 (98-107) mmol/L Carbon Dioxide 28 (21-32) mmol/L Anion Gap 3.0 (3-11) BUN 16 (7-18) mg/dl Creatinine 0.91 (0.6-1.2) mg/dl Est Cr Clr Drug Dosing 37.0 ml/min Est GFR ( Amer) 64.8 Est GFR (Non-Af Amer) 55.9 BUN/Creatinine Ratio 17.6 (10-20) Glucose 140 H (70-99) mg/dl Calcium 9.8 (8.5-10.1) mg/dl Magnesium 1.9 (1.8-2.4) mg/dl Total Bilirubin 1.3 H (0.2-1) mg/dl Direct Bilirubin 0.3 H (0-0.2) mg/dl AST 11 L (15-37) U/L ALT 26 (12-78) U/L Alkaline Phosphatase 71 (45-117) U/L Troponin I < 0.015 (0-0.045) ng/ml Total Protein 7.2 (6.4-8.2) gm/dl Albumin 3.3 L (3.4-5.0) gm/dl TSH 0.226 L (0.300-4.500) uIu/ml Free T4 (0.8-1.6) ng/dl 03/24/19 Range/Units 10:09 WBC (4.8-10.8) K/uL RBC (4.2-5.4) M/uL Hgb (12.0-16.0) g/dL Hct (37-47) % MCV (80-100) fL MCH (25-34) pg MCHC (32-36) g/dL RDW Std Deviation (36.4-46.3) fL RDW Coeff of Kamala (11.5-14.5) % Plt Count (130-400) K/uL MPV (7.4-10.4) fL Immature Gran % (Auto) % Neut % (Auto) % Lymph % (Auto) % [place] % (Auto) % Eos % (Auto) % Baso % (Auto) % Immature Gran # (Auto) (0.00-0.02) K/uL Neut # (Auto) (1.4-6.5) K/uL Lymph # (Auto) (1.2-3.4) K/uL [place] # (Auto) (0.11-0.59) K/uL Eos # (Auto) (0-0.5) K/uL Baso # (Auto) (0-0.2) K/uL PT (9.0-12.0) Seconds INR (0.9-1.1) APTT (21.0-31.0) Seconds PTT Ratio Sodium (136-145) mmol/L Potassium (3.5-5.1) mmol/L Chloride (98-107) mmol/L Carbon Dioxide (21-32) mmol/L Anion Gap (3-11) BUN (7-18) mg/dl Creatinine (0.6-1.2) mg/dl Est Cr Clr Drug Dosing ml/min Est GFR ( Amer) Est GFR (Non-Af Amer) BUN/Creatinine Ratio (10-20) Glucose (70-99) mg/dl Calcium (8.5-10.1) mg/dl Magnesium (1.8-2.4) mg/dl Total Bilirubin (0.2-1) mg/dl Direct Bilirubin (0-0.2) mg/dl AST (15-37) U/L ALT (12-78) U/L Alkaline Phosphatase (45-117) U/L Troponin I (0-0.045) ng/ml Total Protein (6.4-8.2) gm/dl Albumin (3.4-5.0) gm/dl TSH (0.300-4.500) uIu/ml Free T4 1.72 H (0.8-1.6) ng/dl Administered Medications Discontinued Medications Aspirin (Aspirin Chew) 324 mg PO NOW STA Stop: 03/24/19 10:05 Last Admin: 03/24/19 10:29 Dose: 324 mg Documented by: [id number] Sodium Chloride (Nss 1000ml) 500 mls @ 999 mls/hr IV .Q31M ONE Stop: 03/24/19 10:34 Last Infusion: 03/24/19 11:01 Dose: 0 mls/hr Documented by: [id number] Admin: 03/24/19 10:30 Dose: 999 mls/hr Documented by: [id number] Metoprolol Tartrate (Lopressor) 5 mg IV NOW STA Stop: 03/24/19 10:05 Last Admin: 03/24/19 10:29 Dose: 5 mg Documented by: [id number] Blood Pressure Blood Pressure Findings: Normal blood pressure Blood Pressure Disposition: further management by hospitalist Discharge Plan Visit Data *Final* Discharge Date/Time: 03/24/19 13:10 Chief Complaint: Cardiac Assessment Stated Complaint: CHEST/BACK DISCOMFORT, DULLNESS- CARDIAC HX ED Provider: Zackary Alves Discharge Problem: Atrial flutter with rapid ventricular response, Substernal chest pain, Acute dehydration Patient Disposition: Admitted As Inpatient Discharge Instructions Interventions: ED Discharge Assessment Last Done: 03/24/19 13:10 The scribe's documentation has been prepared under my direction and personally reviewed by me in its entirety. I confirm that the note above accurately reflects all work, treatment, procedures, and medical decision making performed by me.
[2019-03-24] MEDS: lisinopriL 5 MG TAB PO SCH (15:57)
[2019-03-24] MEDS ORDERED: HEPARIN SODIUM/DEXTROSE 25,000 UNITS/500 ML BAG IV SCH (16:15)
[2019-03-24] MEDS ORDERED: HEPARIN IV BOLUS 5,000 UNITS in SYRINGE 0 ML IV ONE (16:15)
[2019-03-24] MEDS: INSULIN ASPART 100 UNITS/ML 3 ML PEN SC SCH ×2 (17:51→21:14)
[2019-03-24] MEDS: METOPROLOL TARTRATE 25 MG TAB PO SCH (20:59)
[2019-03-24 21:26] LABS: Partial Thromboplastin Ratio 4.1
[2019-03-24 21:36] LABS: Partial Thromboplastin Time 111.6 Seconds (21.0-31.0)
[2019-03-24] MEDS: LATANOPROST 0.005% OP SOLN 2.5 ML BTL OP SCH (21:56)
[2019-03-24 22:08] LABS: Appearance Urine Cloudy (Clear); Bacteria Urine Automated Negative (Negative); Bilirubin Urine Negative (Negative); Blood Urine Negative (Negative); Color Urine Yellow; Epithelial Cell Urine Auto >30 /lpf (0-5); Glucose Urine UA Negative (Negative); Ketones Urine Negative (Negative); Leukocyte Esterase Urine 3+ (Negative); Nitrite Urine Negative (Negative); Protein Urine Negative (Negative); RBC Urine Automated 0-4 /hpf (0-4); Specific Gravity Urine 1.016 (1.000-1.030); Urobilinogen Urine Negative (Negative); WBC Urine Automated >30 /hpf (0-5); pH Urine 5.5 (4.5-7.5)
[2019-03-24 22:20] LABS: Renal Epithelial Cells Urine 0-5 /lpf (0-5)
[2019-03-24] MEDS ORDERED: ERTAPENEM SODIUM 1,000 MG in SODIUM CHLORIDE 0.9% 50 ML IV STA (22:40)
--- NOTE | 2019-03-24 22:41 | Communication Note ---
Date of Service: March 24, 2019 Made aware by RN of dysuria symptoms. UA WBC > 30 AP Complicated UTI (hx ESBL E. coli UTI on outpatient urine CS) Follow urine cultures, Ertapenem for now Will relay to AM provider.
[2019-03-24] MEDS ORDERED: ERTAPENEM CONSULT ACTIVE PRN (22:51)
[2019-03-25 03:52] LABS: Basophils # (auto) 0.02 K/uL (0-0.2); Basophils % (auto) 0.2 %; Eosinophils % (auto) 1.2 %; Hematocrit (blood only) 38.1 % (37-47); Hemoglobin 12.9 g/dL (12.0-16.0); Immature Granulocytes # (auto) 0.02 K/uL (0.00-0.02); Immature Granulocytes % (auto) 0.2 %; Lymphocytes # (auto) 1.88 K/uL (1.2-3.4); Lymphocytes % (auto) 21.7 %; Mean Corpuscular Hemoglobin 29.5 pg (25-34); Mean Corpuscular Hgb Conc 33.9 g/dL (32-36); Mean Platelet Volume 10.9 fL (7.4-10.4); Monocytes # (auto) 1.02 K/uL (0.11-0.59); Monocytes % (auto) 11.8 %; Neutrophils # (auto) 5.61 K/uL (1.4-6.5); Neutrophils % (auto) 64.9 %; Platelet Count 115 K/uL (130-400); RDW Coefficient of Variation 13.3 % (11.5-14.5); RDW Standard Deviation 42.6 fL (36.4-46.3); Red Blood Count 4.38 M/uL (4.2-5.4); White Blood Count 8.65 K/uL (4.8-10.8)
[2019-03-25 04:09] LABS: BUN Creatinine Ratio 19.4 (10-20); Calcium 8.8 mg/dl (8.5-10.1); Creatinine Clr Calc Pharmacy 46.6 ml/min; Est GFR (African American) 84.6; Potassium 3.9 mmol/L (3.5-5.1)
[2019-03-25 04:12] LABS: Partial Thromboplastin Ratio 2.3
[2019-03-25 04:13] LABS: Partial Thromboplastin Time 62.5 Seconds (21.0-31.0)
[2019-03-25] MEDS: LEVOTHYROXINE SODIUM 75 MCG TABLET PO SCH (05:37)
[2019-03-25] MEDS: CALCIUM 600MG + VIT D 400 IU TAB PO SCH (07:34)
[2019-03-25] MEDS: lisinopriL 5 MG TAB PO SCH (07:35)
[2019-03-25] MEDS: FEXOFENADINE HCL 180 MG TAB PO SCH (07:36)
[2019-03-25] MEDS: ASPIRIN 81 MG ECTAB PO SCH (07:37)
[2019-03-25] MEDS: METOPROLOL TARTRATE 25 MG TAB PO SCH ×3 (07:38→21:32)
[2019-03-25] MEDS: FUROSEMIDE 20 MG TAB PO SCH (07:39)
[2019-03-25] MEDS: PANTOprazole 40 MG TAB PO SCH (07:39)
[2019-03-25] MEDS: CLOPIDOGREL BISULFATE 75 MG TAB PO SCH (07:41)
[2019-03-25] MEDS: DARIFENACIN 15 MG PO SCH (07:41)
[2019-03-25] MEDS: ATORVASTATIN 20 MG TAB PO SCH (07:42)
[2019-03-25] MEDS: INSULIN ASPART 100 UNITS/ML 3 ML PEN SC SCH ×4 (07:43→20:54)
[2019-03-25] MEDS ORDERED: LEVOTHYROXINE SODIUM 75 MCG TABLET PO SCH (09:00)
[2019-03-25] MEDS ORDERED: LEVOTHYROXINE SODIUM 50 MCG TABLET PO SCH (09:00)
[2019-03-25] MEDS ORDERED: DARIFENACIN 15 MG PO SCH (09:00)
[2019-03-25] MEDS ORDERED: CRANBERRY PO SCH (09:00)
[2019-03-25] MEDS ORDERED: lisinopriL 5 MG TAB PO SCH (09:00)
--- NOTE | 2019-03-25 11:46 | Hospitalist Progress Note ---
Date of Service March 25, 2019 Assessment & Plan (1) Atrial flutter with rapid ventricular response: Metoprol increased to 12.5mg PO TID. Cont to monitor on telemetry for response. No anticoagulation recommended. (2) Substernal chest pain: resolved (3) Fatigue: Thought 2/2 an adverse medication side effect, possibly metoprolol? She appears to be better today. (4) CAD (coronary artery disease): Recent stent placement in Dec. Continue dual antiplatelet therapy aspirin, Plavix, metoprolol, lisinopril (5) Diabetes mellitus, type II: Well-controlled, last A1c 01/05 6.2 Diet controlled Accuchecks and insulin coverage was stopped. (6) Hypothyroidism: cont home levothyroxine and cont to monitor as outpatient on current home dose of Synthroid. (7) Diastolic heart failure: History of diastolic dysfunction per echocardiogram Currently compensated and euvolemic Monitor daily weights, strict I's and O's Continue metoprolol, lisinopril She takes Lasix on as-needed basis for edema (8) HLD (hyperlipidemia): cont home statin (9) Glaucoma: Continue latanoprost eyedrops (10) DVT prophylaxis: SCD/teds/heparin drip Patient on dual antiplatelet therapy with aspirin and Plavix Disposition:plan for home in am after PT and OT see her, and after final recommendations from Cardiology regarding her medications. Karen Hull DO [facility] Hospitalist Subjective patient feels better today denies any chest pain today denies SOB fatigue appears to have cleared somewhat Atrial flutter overnight/Cardiology dc'd heparin drip and doesn't recommend anticoagulation. Pt reports frustration with sitting around in bed Outpatient script for walker given in response to request by son. Review of Systems Review of Systems: All systems reviewed & are unremarkable except as noted in HPI & below Physical Exam Physical Exam: CONSTITUTIONAL: WNWD, vitals as above, generally well- appearing EYES: normal conjunctivae, no scleral icterus ENT: MMM RESPIRATORY: clear to auscultation bilaterally, no crackles, rales or wheezes, normal respiratory effort CARDIOVASCULAR: regular rate and rhythm, S1 and 2 heard without murmurs, gallops or rubs, no JVD, no peripheral edema GASTROINTESTINAL: normal bowel sounds, soft, nontender,nondistended MUSCULOSKELETAL: strength 5/5 throughout, head is normocephalic and atraumatic SKIN: warm and dry NEUROLOGIC: CN 2-12 grossly intact, no sensory deficit, normal cognition, normal speech, no tremor, no gross focal deficits. PSYCHIATRIC: alert cooperative and oriented to person, place and time. Results & Data Vital Signs (Past 12 Hours) Vital Signs Temp Pulse Resp BP BP Pulse Ox 03/25/19 11:28 36.8 C 74 18 117/72 96 03/25/19 07:44 36.8 C 78 16 154/69 H 98 03/25/19 03:26 36.5 C 86 16 113/73 97 Laboratory Results Short CBC 03/25/19 Range/Units 03:38 WBC 8.65 (4.8-10.8) K/uL Hgb 12.9 (12.0-16.0) g/dL Hct 38.1 (37-47) % Plt Count 115 L (130-400) K/uL BMP 03/25/19 03:38 Sodium 137 Potassium 3.9 Chloride 109 H Carbon Dioxide 25 BUN 14 Creatinine 0.73 Glucose 127 H Calcium 8.8 Cardiac Enzymes 03/24/19 03/24/19 Range/Units 15:01 20:58 Troponin I < 0.015 < 0.015 (0-0.045) ng/ml Urine 03/24/19 Range/Units 21:47 Urine Color Yellow Urine Appearance Cloudy A (Clear) Urine pH 5.5 (4.5-7.5) Ur Specific [place] 1.016 (1.000-1.030) Urine Protein Negative (Negative) Urine Glucose (UA) Negative (Negative) Medications Administered Current Inpatient Medications Acetaminophen (Tylenol) 650 mg PO Q4H PRN PRN Reason: Pain or Fever Stop: 04/23/19 14:12 Al Hydrox/Mg Hydrox/Simethicone (Maalox) 15 ml PO Q4H PRN PRN Reason: Dyspepsia Stop: 04/23/19 14:12 Aspirin (Ecotrin Ectab) 81 mg PO [facility] Stop: 04/24/19 08:59 Last Admin: 03/25/19 07:37 Dose: 81 mg Documented by: Atorvastatin Calcium (Lipitor) 20 mg PO [facility] Stop: 04/24/19 08:59 Last Admin: 03/25/19 07:42 Dose: 20 mg Documented by: Clopidogrel Bisulfate (Plavix) 75 mg PO QAM [facility] Stop: 04/24/19 08:59 Last Admin: 03/25/19 07:41 Dose: 75 mg Documented by: Dextrose (Dextrose 50%) 25 - 50 ml IV UD PRN; Protocol PRN Reason: Hypoglycemia Protocol Stop: 04/23/19 14:12 Ertapenem (Consult) 1 ea N/A UD PRN PRN Reason: Consult Stop: 04/23/19 22:50 Fexofenadine HCl (Pamela) [facility] Stop: 04/24/19 08:59 Last Admin: 03/25/19 07:36 Dose: 180 mg Documented by: Furosemide (Lasix) 10 mg PO QAM [facility] Stop: 04/24/19 08:59 Last Admin: 03/25/19 07:39 Dose: 10 mg Documented by: Glucagon (Glucagen) 1 mg SQ UD PRN; Protocol PRN Reason: Hypoglycemia Protocol Stop: 04/23/19 14:12 Glucose (Dex4 Glucose) 4 - 8 tabs PO UD PRN; Protocol PRN Reason: Hypoglycemia Protocol Stop: 04/23/19 14:12 Glucose (Glucose 40%) 15 - 30 gm PO UD PRN; Protocol PRN Reason: Hypoglycemia Protocol Stop: 04/23/19 14:12 Ertapenem 1,000 mg/ Sodium (Chloride) 60 mls @ 100 mls/hr IV Q24H [facility]; Protocol Stop: 04/02/19 23:35 Insulin Aspart (Novolog Flexpen) 0 units SC ACHS [facility] Stop: 04/23/19 16:29 Last Admin: 03/25/19 07:43 Dose: Not Given Documented by: Latanoprost (Xalatan Oph) 1 drops OP HS [facility] Stop: 04/23/19 20:59 Last Admin: 03/24/19 21:56 Dose: 1 drops Documented by: Levothyroxine Sodium (Synthroid) 75 mcg PO DAILYBB [facility] Stop: 04/24/19 06:29 Last Admin: 03/25/19 05:37 Dose: 75 mcg Documented by: Lisinopril (Zestril) 5 mg PO DAILY [facility] Stop: 04/23/19 14:29 Last Admin: 03/25/19 07:35 Dose: 5 mg Documented by: Magnesium Hydroxide (Milk Of Magnesia) 30 ml PO Q12H PRN PRN Reason: Constipation Stop: 04/23/19 14:12 Metoprolol Tartrate (Lopressor) 12.5 mg PO Q8 [facility] Stop: 04/24/19 13:59 Miscellaneous (Carbohydrates For Hypoglycemia) 15 - 30 gm PO UD PRN PRN Reason: Hypoglycemia Protocol Stop: 04/23/19 14:12 Multivitamins/Minerals (Caltrate Plus) 1 tab PO QAM [facility] Stop: 04/24/19 08:59 Last Admin: 03/25/19 07:34 Dose: 1 tab Documented by: Nitroglycerin (Nitrostat) 0.4 mg SL UD PRN PRN Reason: Chest Pain Stop: 04/23/19 14:12 Darifenacin Er 15 Mg - Non-Formulary Patient's Own Med 1 ea PO DAILY [facility] Stop: 04/24/19 08:59 Last Admin: 03/25/19 07:41 Dose: 1 tab Documented by: Pantoprazole Sodium (Protonix) 40 mg PO QAM [facility] Stop: 04/24/19 08:59 Last Admin: 03/25/19 07:39 Dose: 40 mg Documented by: Polyethylene Glycol (Miralax Powder Packet) 17 gm PO DAILY PRN PRN Reason: Constipation Stop: 04/23/19 14:12
--- NOTE | 2019-03-25 14:49 | Cardiology Consultation ---
Date of Consultation March 25, 2019 Assessment & Plan (1) Atrial flutter with rapid ventricular response: Status post successful cardioversion normal sinus rhythm with IV Lopressor. I believe that this is the source of her chest discomfort along with a significant musculoskeletal component and I do not see any objective findings of ischemia at this time. 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 I am not quite sure what to make of her beta-geraldine tolerance so at this time I will increase her low-dose metoprolol 12.5 mg to 3 times a day in order to aid with atrial arrhythmia suppression. As noted previously she does not appear to be an anticoagulation candidate specifically given the need for dual antiplatelet therapy at this time and her unsteady gait. (2) Substernal chest pain: No objective findings of ischemia Secondary to atrial flutter with RVR. (3) CAD (coronary artery disease): We will continue aspirin, Plavix and atorvastatin (4) Paroxysmal atrial fibrillation: (5) Hypothyroidism: History of Present Illness Reason for Consultation: atrial flutter with RVR Requesting Physician: Dr. Hull Attending Physician: Karen Hull, DO History of Present Illness It was my pleasure to see Mrs. Ferraro in consultation today March 25, 2019. She is a very pleasant yet somewhat demented 88-year-old woman who normally follows with Dr. Valente of her cardiology practice. She presented to [facility] on 03/24/2019 with complaints of chest ache. She states that she is been having achy sensation in her chest for approximately 2 days prior to arrival. She states that she is never had an ache like this before and is in no way similar to her non-STEMI which she suffered in December of this year. She states that the discomfort seemed to wax and wane until she finally mentioned it to her son who brought her into the emergency department. Upon arrival she was found to be in atrial flutter with rapid ventricular response. She was given a single dose of IV Lopressor in the emergency department with successful cardioversion to normal sinus rhythm. Her son who is at the bedside during examination provided majority of the history. She states that her ache is resolved and she is now feeling somewhat back to normal. She notes that she is been feeling very tired and fatigued ever since discharge in December and she is blaming her metoprolol for this. The dose was recently decreased by Dr. Valente her most recent outpatient visit with no change in her fatigue symptoms. It should also be noted that her thyroid function is significantly off and recently had her levothyroxine dose adjusted only a few days ago. Allergies Allergy/AdvReac Type Severity Reaction Status Date / Time allopurinol Allergy Unknown Verified 03/24/19 10:58 amlodipine Allergy Unknown Verified 03/24/19 10:58 ciprofloxacin [From Cipro] Allergy Unknown Verified 03/24/19 10:58 nifedipine Allergy Unknown Verified 03/24/19 10:58 NSAIDS (Non-Steroidal Allergy Unknown Verified 03/24/19 10:58 Anti-Inflamma oxybutynin [From Ditropan] Allergy Unknown Verified 03/24/19 10:58 Dlqncmt-Wkd-Uci Reductase Allergy Unknown Verified 03/24/19 10:58 Inhibitor sulfamethoxazole AdvReac CENTRAL Verified 03/24/19 10:58 [From Bactrim] NERVOUS SYSTEM DYSFUNCTION trimethoprim [From Bactrim] AdvReac CENTRAL Verified 03/24/19 10:58 NERVOUS SYSTEM DYSFUNCTION Home Medications Home Medications Medication Instructions Recorded Confirmed Type Rachelle-C with Bioflavonoids 1 tab PO UD 07/19/18 03/24/19 History Tucks (witch phi) 1 pad TOPICAL BID PRN 07/19/18 03/24/19 History aspirin [Aspir-81] 81 mg PO QAM 07/19/18 03/24/19 History cranberry 2,400 mg PO QAM 07/19/18 03/24/19 History darifenacin [Enablex] 15 mg PO QAM 07/19/18 03/24/19 History fexofenadine [Pamela Allergy] 180 mg PO QAM 07/19/18 03/24/19 History fluocinonide 1 applic TOPICAL BID PRN 07/19/18 03/24/19 History hydrocortisone 1 applic [place] UD PRN 07/19/18 03/24/19 History polyethylene glycol 3350 [Miralax] 8.5 - 17 g PO QAM PRN 07/19/18 03/24/19 History triamcinolone acetonide 1 applic TOPICAL BID PRN 07/19/18 03/24/19 History calcium carbonate-vitamin D3 1 tab PO QAM 12/25/18 03/24/19 History [Calcium 600 + D(3)] latanoprost 1 drp OPHTHALMIC (EYE) HS 12/25/18 03/24/19 History lisinopril 5 mg PO DAILY 12/25/18 03/24/19 History atorvastatin 20 mg PO QAM 30 Days #30 tab 12/30/18 03/24/19 Rx clopidogrel 75 mg PO QAM 30 Days #30 tab 12/30/18 03/24/19 Rx nitroglycerin [Nitrostat] 0.4 mg SUBLINGUAL PRN PRN #14 tab 12/30/18 03/24/19 Rx furosemide 10 - 20 mg PO QAM PRN 03/24/19 03/24/19 History levothyroxine [Synthroid] 75 mcg PO QAM 03/24/19 03/24/19 History metoprolol tartrate 12.5 mg PO BID 03/24/19 03/24/19 History pantoprazole 40 mg PO QAM 03/24/19 03/24/19 History Patient History Medical History CAD (coronary artery disease) Diabetes mellitus, type II (Chronic) Diastolic heart failure (Chronic) Glaucoma HLD (hyperlipidemia) (Chronic) HTN (hypertension) (Chronic) Hyponatremia (Chronic) Hypothyroidism (Chronic) Presence of stent in LAD coronary artery Stable angina (Acute) Surgical History History of History of partial colectomy (Chronic) History of percutaneous coronary intervention Cardiac catheterization December 26, 2018 95% mid LAD stenosis, 30% ostial circumflex, 50% small posterior descending artery stenosis with resultant drug-eluting stent placed in mid LAD Hx of partial cystectomy (Chronic) S/P bilateral hip replacements (Chronic) Social History Preferred Language: Persian Communication Ability: Effective Geospatial Extractor Analysis Required: No Beliefs That Will Affect Care: Yarsanism Yarsanism Beliefs: Church marital status: Single Current Living Situation: Alone Current Living Situation Comment: [facility] [place] current occupational status: retired Other Information That Helps Us Care for You: No Feels Safe at Home: Yes Safety Concerns: Feels Safe At This Time Smoking Status: Former smoker Do You Dip or Chew Tobacco: No ; Smoking End Date: 30 years ago at the age of 41 years 2 packs per day. ; Second Hand Exposure: No ; Tobacco Cessation Education Requested by Patient: No Hx Alcohol Use: No Hx Substance Use: No Review of Systems Review of Systems: All systems reviewed & are unremarkable except as noted in HPI & below Physical Exam Physical Exam: General: Awake, alert and oriented x 3. No acute distress. HEENT: Normocephalic, atraumatic. Pupils equal, round and reactive to light and accommodation. Extraocular muscles are intact. Anicteric sclera. Moist mucous membranes. Neck: No JVD. No bruit. Cardiovascular: Regular. Positive S-4. Normal S-1 and S-2. No S-3. 3/6 mid to late systolic ejection murmur, greatest at the right sternal border, second intercostal space with radiation to the bilateral carotids. No rubs. Pulmonary: Clear to auscultation bilaterally. No rales, rhonchi, or wheezing. Abdomen: Bowel sounds x 4, soft. No rebound, guarding or tenderness. No organomegaly. Extremities: No clubbing, cyanosis or edema. +2 pedal pulses bilaterally. Skin: Warm and dry. Results & Data Vital Signs (Past 12 Hours) Vital Signs Temp Pulse Resp BP BP Pulse Ox 03/25/19 13:06 88 117/72 03/25/19 11:28 36.8 C 74 18 117/72 96 03/25/19 07:44 36.8 C 78 16 154/69 H 98 03/25/19 03:26 36.5 C 86 16 113/73 97
[2019-03-25] MEDS: LATANOPROST 0.005% OP SOLN 2.5 ML BTL OP SCH (21:32)
[2019-03-25] MEDS ORDERED: ERTAPENEM SODIUM 1,000 MG in SODIUM CHLORIDE 0.9% 50 ML IV SCH (23:00)
[2019-03-26] MEDS: METOPROLOL TARTRATE 25 MG TAB PO SCH (05:17)
[2019-03-26] MEDS: LEVOTHYROXINE SODIUM 75 MCG TABLET PO SCH (06:20)
[2019-03-26 06:33] LABS: Hematocrit (blood only) 38.8 % (37-47); Mean Corpuscular Hemoglobin 29.4 pg (25-34); Mean Corpuscular Hgb Conc 33.5 g/dL (32-36); Mean Corpuscular Volume 87.8 fL (80-100); Mean Platelet Volume 10.8 fL (7.4-10.4); Platelet Count 139 K/uL (130-400); RDW Coefficient of Variation 13.1 % (11.5-14.5); RDW Standard Deviation 42.1 fL (36.4-46.3); Red Blood Count 4.42 M/uL (4.2-5.4)
[2019-03-26 06:55] LABS: BUN Creatinine Ratio 12.4 (10-20); Calcium 9.4 mg/dl (8.5-10.1); Creatinine Clr Calc Pharmacy 39.2 ml/min; Est GFR (African American) 69.4; Est GFR (Non-African American) 59.9; Potassium 4.1 mmol/L (3.5-5.1)
[2019-03-26] MEDS ORDERED: ACETAMINOPHEN 325 MG TAB PO PRN (07:33)
[2019-03-26] MEDS: lisinopriL 5 MG TAB PO SCH (08:20)
[2019-03-26] MEDS: FUROSEMIDE 20 MG TAB PO SCH (08:20)
[2019-03-26] MEDS: FEXOFENADINE HCL 180 MG TAB PO SCH (08:21)
[2019-03-26] MEDS: CALCIUM 600MG + VIT D 400 IU TAB PO SCH (08:21)
[2019-03-26] MEDS: ATORVASTATIN 20 MG TAB PO SCH (08:21)
[2019-03-26] MEDS: CLOPIDOGREL BISULFATE 75 MG TAB PO SCH (08:21)
[2019-03-26] MEDS: PANTOprazole 40 MG TAB PO SCH (08:21)
[2019-03-26] MEDS: DARIFENACIN 15 MG PO SCH (08:22)
[2019-03-26] MEDS: ASPIRIN 81 MG ECTAB PO SCH (08:22)
--- NOTE | 2019-03-26 08:58 | Hospitalist Progress Note ---
Date of Service March 26, 2019 Assessment & Plan (1) Atrial flutter with rapid ventricular response: -Patient presented with atrial flutter and rapid ventricular response -Home dose metoprolol had been increased by cardiology service during this admission. Initially returned to sinus rhythm -however current review of telemetry that the atrial flutter rhythm has returned. Heart rate is controlled at rest -appreciate further cardiology recommendations (2) Substernal chest pain: -may have been related to atrial flutter (3) Fatigue: -initial fatigue symptoms may have been from initial atrial flutter with rapid ventricular response -monitor symptoms while on beta blockers -patient was encouraged to ambulate with nurse or physical/occupational therapist (4) CAD (coronary artery disease): Coronary artery disease with coronary artery stent in [place] [facility] -Coronary artery stent placement in Dec 2018. -Continue dual antiplatelet therapy aspirin, Plavix. 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 (8) Hypothyroidism: -has history of very low TSH while on Levothyroxine -last TSH somewhat more elevated compared to the past as 0.226 on 03/24/19 -patient family member reports 1 week prior to hospital presentation that levothyroxine was increased from 50 mcg daily to 75 mcg daily -on home dose levothyroxine 75 mcg daily (9) Glaucoma: -Continue latanoprost eyedrops (10) DVT prophylaxis: SCD/teds son Mp [phone], Subjective Patient seen and examined at bedside. Overnight telemetry reviewed and patient is again in atrial flutter. Heart rate has adalberto controlled at rest. Patient comfortable in appearance. breathing on room air and not in distress.Patient initially reported mild chest discomfort when asked. Subsequently at end of the encounter patient denied feeling chest discomforts currently. no nausea. no vomiting. no dizziness. no headache. patient was encouraged to ambulate with nurse or therapist Review of Systems Review of Systems: All systems reviewed & are unremarkable except as noted in HPI & below Physical Exam Constitutional: WD/WN, vitals as above Results & Data Vital Signs (Past 12 Hours) Vital Signs Temp Pulse Pulse Resp BP BP Pulse Ox 03/26/19 07:55 36.8 C 96 H 20 128/76 99 03/26/19 03:00 36.6 C 97 H 20 125/76 95 03/25/19 23:06 98 H 03/25/19 22:53 36.7 C 73 18 144/83 H 92
--- NOTE | 2019-03-26 10:15 | Cardiology Progress Note ---
Date of Service March 26, 2019 Assessment & Plan (1) Atrial flutter with rapid ventricular response: In review of the patient's actually remained in atrial flutter during the hospitalization Her symptoms have resolved though with increasing metoprolol dosage and greater rate control. She was concerned about increasing the beta-blockade dosage but she is tolerating it well. Unfortunately she does have a documented prolonged QT interval at baseline and again is not a candidate for antiarrhythmic therapy. As noted previously she does not appear to be an anticoagulation candidate specifically given the need for dual antiplatelet therapy at this time and her unsteady gait. Soft, given the fact that her symptoms have now resolved and she is rate controlled I believe the most prudent course of action will be to discharge her to home on metoprolol tartrate 12.5 mg p.o. 3 times daily. She already has an appointment to see Maria Esther Tabor of our cardiology practice on April 09 and I recommend she keep that appointment. She and her son were counseled that she can may take an extra dose should she have an elevated heart rate greater than 100 and be symptomatic with dyspnea that does not resolve with rest. The above findings and recommendations were discussed with the patient and her son at great lengths. They both state that they understand and are in agreement with the above plan. It is okay to discharge the patient home from a cardiac standpoint. (2) Substernal chest pain: Musculoskeletal No signs of active ischemia and no further testing necessary at this time. (3) CAD (coronary artery disease): We will continue aspirin, Plavix and atorvastatin (4) Paroxysmal atrial fibrillation: (5) Hypothyroidism: Subjective Patient seen and examined with son at bedside. Patient was ambulating in the hallway this morning without symptoms. She states her chest discomfort has significantly improved and again she only notices it if she is been sitting for extended period of time and is very quiet. Then she may feel it but she has absolutely no symptoms with exertion. Otherwise she denies any shortness of breath or palpitations. She has had no ill towards effect of the extra dose from metoprolol. Telemetry reviewed: Atrial flutter with a controlled ventricular response in the 70-100s range. Review of Systems Review of Systems: All systems reviewed & are unremarkable except as noted in HPI & below Physical Exam Physical Exam: General: Awake, alert and oriented x 3. No acute distress. HEENT: Normocephalic, atraumatic. Pupils equal, round and reactive to light and accommodation. Extraocular muscles are intact. Anicteric sclera. Moist mucous membranes. Neck: No JVD. No bruit. Cardiovascular: irregularly irregular, unable to appreciate murmur, rub or gallop. Pulmonary: Clear to auscultation bilaterally. No rales, rhonchi, or wheezing. Abdomen: Bowel sounds x 4, soft. No rebound, guarding or tenderness. No organomegaly. Extremities: No clubbing, cyanosis or edema. +2 pedal pulses bilaterally. Skin: Warm and dry. Results & Data Vital Signs (Past 12 Hours) Vital Signs Temp Pulse Pulse Resp BP BP Pulse Ox 03/26/19 07:55 36.8 C 96 H 20 128/76 99 03/26/19 03:00 36.6 C 97 H 20 125/76 95 03/25/19 23:06 98 H 03/25/19 22:53 36.7 C 73 18 144/83 H 92
--- NOTE | 2019-03-26 10:51 | Discharge Summary ---
Date of Service March 26, 2019 Admission HPI Per Admitting Provider This is a 88-year-old female who has significant past medical history of CAD with recent FRANCIA to LAD 12/26/2018, diastolic CHF, HLD, PAF transient post stenting, T2DM, hypothyroidism, diastolic CHF, CKD stage III, glaucoma who presents to ED secondary to chest discomfort x2 days. She lives in independent living and over the past 2 days noted substernal chest discomfort with radiation to back. Pain was constant, described as "dull ache," rated a 1/10, made better with conversation, nothing made it worse, never felt anything like this in the past and not similar to prior presentation of NSTEMI. Did not try anything [id number] or nitro for relief. She elicits that over the past 2 days she has not felt well. Every Tuesday at 9 AM she go shopping with a group, and she recalls telling her group that she was not going to go and she did not feel well, but she does not recall most of the events from that day. Recall sitting in her recliner and getting numerous calls, but not answering the phone. Her son finally did reach her and was very concerned. She thinks she may have slept most of the day and woke up at approximately 3-4 AM this morning. She has decreased p.o. intake over the past 2 days, decreased appetite. She has had profound fatigue ever since having her IA and attributes this to her metoprolol. He denies any recent illness, fever, chills, sweats, lightheadedness, dizziness, syncope, fall, palpitations, shortness breath at rest, shortness of breath with exertion, hemoptysis, cough, nausea, vomiting, abdominal pain, dysuria, increased urgency or frequency with urination, hematuria, melena, hematochezia. Has not had a BM for several days but denies any abdominal pain. "I have been eating anything so I do not have to move my bowels." She admits to being compliant with her medications specifically dual antiplatelet therapy. Of significance patient confined 12/25 to 12/30 secondary to NSTEMI. Patient underwent cardiac cath with FRANCIA to LAD. Transiently she did develop atrial fibrillation which was treated with IV amiodarone. She was opted to not be treated with oral anticoagulation secondary to need for dual antiplatelet therapy. Also during hospitalization she was found to have iatrogenic hyperthyroidism. Her levothyroxine dose was decreased from 112 mcg to 50 mcg. She was discharged to home and rehospitalized in January 04, 2019 secondary to shortness of breath. Cardiac work-up at that time was negative. She did have repeat echocardiogram which revealed EF 60 to 65% with mild anterior and apical hypokinesis, unchanged from prior. Also noted was enlargement of left atrium, mild. Initial work-up revealed atrial flutter with heart rate 129. She received IV bolus 500 mL, 5 mg IV Lopressor, which improved heart rates to 7290s with apparent normal rhythm. Lab work remarkable for normal troponin, elevated T4 1.72, low TSH 0.226, Alex 140, T bili 1.3, direct bili 0.3, K3.9, mag 1.9, leukocytosis 12.48. Chest x-ray revealed cardiomegaly but otherwise unremarkable. Admission Exam Per Admitting Provider Constitutional: Elderly, female, WD/WN, vitals as above, NAD, sitting up in bed, pleasant, conversing easily Head: Normocephalic, Atraumatic Eyes: PERRL, conjunctivae normal, anicteric sclerae ENMT: external ear and nose normal, oropharynx normal Neck: trachea midline, no thyromegaly normal visual inspection Respiratory: normal respiratory effort, lungs clear to auscultation, no wheeze, rales, rhonchi. Normal insp/exp effort, no accessory muscle use Cardiovascular: RRR, subtle murmur 1/6 best LUSB, no edema Vessels: no JVD or carotid bruit Chest: normal inspection of chest Abdomen: normal bowel sounds, soft, nontender, no hepatosplenomegaly Musculoskeletal: no cyanosis or clubbing, extremities motor strength 5/5 Skin: + Pupura lesion R ACW x 1, otherwise no rashes, warm and dry normal turgor Neurologic: PERRL, EOMI, accommodation nl, no face palsy, no dysarthria CN's II-XI intact bilaterally and moves all extremities Psychiatric: A+Ox3, euthymic affect Lymphatic: no cervical or axillary lymphadenopathy : deferred Principal Diagnosis chest pain secondary to Atrial flutter with rapid ventricular response, Coronary artery disease with coronary artery stent in [place] heart, Hypothyroidism, Diabetes Mellitus Type 2 without penitentiary current use of insulin, urinary tract infection was suspected but ruled out after empiric treatment Discharge Exam Constitutional WD/WN, vitals as above Eyes PERRL, conjunctivae normal, anicteric sclerae EOM intact bilaterally ENMT external ear and nose normal, oropharynx normal Neck normal visual inspection Respiratory normal respiratory effort, lungs clear to auscultation Cardiovascular Rate/Rhythm: regular rate and + irregularly irregular Gastrointestinal (Abdomen) normal bowel sounds, soft, nontender, no hepatosplenomegaly Musculoskeletal Head/Neck/Chest: normocephalic and head atraumatic Neurologic PERRL, EOMI, accommodation nl, no face palsy, no dysarthria CN's II-XI intact bilaterally Psychiatric A+Ox3, euthymic affect Discharge Data Allergies Allergy/AdvReac Type Severity Reaction Status Date / Time allopurinol Allergy Unknown Verified 03/24/19 10:58 amlodipine Allergy Unknown Verified 03/24/19 10:58 ciprofloxacin [From Cipro] Allergy Unknown Verified 03/24/19 10:58 nifedipine Allergy Unknown Verified 03/24/19 10:58 NSAIDS (Non-Steroidal Allergy Unknown Verified 03/24/19 10:58 Anti-Inflamma oxybutynin [From Ditropan] Allergy Unknown Verified 03/24/19 10:58 Zecvflh-Zjj-Vem Reductase Allergy Unknown Verified 03/24/19 10:58 Inhibitor sulfamethoxazole AdvReac CENTRAL Verified 03/24/19 10:58 [From Bactrim] NERVOUS SYSTEM DYSFUNCTION trimethoprim [From Bactrim] AdvReac CENTRAL Verified 03/24/19 10:58 NERVOUS SYSTEM DYSFUNCTION Consultations 03/24/19 11:29 ED Decision to Admit Stat 03/24/19 12:23 Consult Cardiology Routine 03/24/19 14:13 Consult Case Management - Discharge Planning Routine Ordered Studies 03/24/19 12:26 CT head/brain wo con Urgent Hospital Course (1) Atrial flutter with rapid ventricular response: -Patient presented with atrial flutter and rapid ventricular response -Home dose metoprolol had been increased by cardiology service during this admission. Initially returned to sinus rhythm -however current review of telemetry that the atrial flutter rhythm has returned. Heart rate is controlled at rest -Cardiology 03/26/19 allows for hospital discharge Discharge medications of Metoprolol 12.5 mg every 8 hours sent electronically to [facility] [address], [place] [address] Patient may take additional dose of metoprolol if heart rate greater than 100 and be symptomatic with dyspnea that does not resolve with rest. Patient should seek immediate medical attention as needed if very fast heart rate continues or if symptoms like palpitations, severe chest discomfort/chest pains, acute shortness of breath that does not improve Patient should follow up with primary care doctor and cardiology on adjustments of metoprolol depending on heart rates. Patient should follow up with primary care doctor for management of other health issues including Hypothyroidism and L evothyroxine medication adjustments as needed 03/30/2019 3:00 PM Provider Tony Cosme DO Department General Internal Medicine [facility] 04/09/2019 2:30 PM Provider Maria Esther Tabor PA-C Department Cardiology, [facility] (2) Substernal chest pain: -may have been related to atrial flutter (3) Fatigue: -initial fatigue symptoms may have been from initial atrial flutter with rapid ventricular response -monitor symptoms while on beta blockers -patient able to ambulate -discharge with home health services as per pillowcase maker (4) CAD (coronary artery disease): Coronary artery disease with coronary artery stent in [place] heart -Coronary artery stent placement in Dec 2018. -Continue dual antiplatelet therapy aspirin, Plavix. on metoprolol, lisinopril (5) Diastolic heart failure: -History of diastolic dysfunction per echocardiogram -echocardiogram with EF of 60 to 65% in January 2019 -Currently compensated and euvolemic -Continue metoprolol, lisinopril -She takes Lasix at home on as-needed basis for edema (6) HLD (hyperlipidemia): cont home statin (7) Diabetes mellitus, type II: Diabetes Mellitus Type 2 without middle or intermediate school principal current use of insulin -last A1c 01/05/19 as 6.2 -Diet controlled -Accuchecks and insulin coverage was stopped. (8) Hypothyroidism: -has history of very low TSH while on Levothyroxine -last TSH somewhat more elevated compared to the past as 0.226 on 03/24/19 -patient family member reports 1 week prior to hospital presentation that levothyroxine was increased from 50 mcg daily to 75 mcg daily -on home dose levothyroxine 75 mcg daily (9) Glaucoma: -Continue latanoprost eyedrops urinary tract infection was suspected but ruled out after empiric treatment -Patient was given IV Ertapenem antibiotic in the hospital in case of urinary tract infection but inpatient urine analysis negative for infection and urine culture : Three types of organisms present, all high counts probable skin amara. No further identifications or sensitivities to follow. (10) DVT prophylaxis: SCD/teds yohana Gresham [phone], Total Time Total Time Spent Total Time Spent (In Minutes): 40 minutes Total Time Includes: Examination of the Patient, Discharge Planning, Medication Reconciliation and Communication With Other Providers Discharge Plan Discharge Items Patient Disposition: Home - Home Health Services Reason For Visit: CHEST PAIN/ AFLUTTER Discharge Diagnosis: chest pain secondary to Atrial flutter with rapid ventricular response, Coronary artery disease with coronary artery stent in [place] heart, Hypothyroidism, Diabetes Mellitus Type 2 without penitentiary current use of insulin, urinary tract infection was suspected but ruled out after empiric treatment Condition on Discharge: Good Activity: Resume your previous activity Non-emergency contact: Primary Care Provider and Market Research Consultant Call non-emergency contact if: you have any medication questions Follow-up/Referrals: Ananya Staples MD [Primary Care Provider] - Diet: Carb Consistent or DM2, Heart Healthy and Low Sodium (2gm) Addtl Attending Provider Instructions: Discharge medications of Metoprolol 12.5 mg every 8 hours sent electronically to [address] [place] [address] Patient may take additional dose of metoprolol if heart rate greater than 100 and be symptomatic with dyspnea that does not resolve with rest. Patient should seek immediate medical attention as needed if very fast heart rate continues or if symptoms like palpitations, severe chest discomfort/chest pains, acute shortness of breath that does not improve Patient should follow up with primary care doctor and cardiology on adjustments of metoprolol depending on heart rates. Patient should follow up with primary care doctor for management of other health issues including Hypothyroidism and Levothyroxine medication adjustments as needed 03/30/2019 3:00 PM Provider Tony Cosme DO Department General Internal Medicine [facility] 04/09/2019 2:30 PM Provider Maria Esther Tabor PA-C Department Cardiology, [facility] Pending Studies at Discharge: No Studies:: Patient was given IV Ertapenem antibiotic in the hospital in case of urinary tract infection but inpatient urine analysis negative for infection and urine culture : Three types of organisms present, all high counts probable skin amara. No further identifications or sensitivities to follow. Stand-Alone Forms: My [facility], Smoking Cessation Medications and DC Order Prescriptions: New metoprolol tartrate 25 mg Tablet 12.5 mg PO Q8H 30 Days Qty: 45 RF: 0 Continued polyethylene glycol 3350 [Miralax] 17 gram Powder In Packet 8.5 - 17 g PO QAM PRN (Reason: Constipation) RF: 0 fexofenadine [[facility] Allergy] 180 mg Tablet 180 mg PO QAM RF: 0 aspirin [Aspir-81] 81 mg Tablet,Delayed Release (Dr/Ec) 81 mg PO QAM RF: 0 triamcinolone acetonide 0.025 % Cream 1 applic TOPICAL BID PRN (Reason: APPLY TO BACK & NECK) RF: 0 hydrocortisone 1 % Cream 1 applic OK UD PRN (Reason: AFTER EACH BM) RF: 0 cranberry 400 mg Capsule 2,400 mg PO QAM RF: 0 fluocinonide 0.05 % solution 1 applic topical BID PRN (Reason: SCALP) RF: 0 Rachelle-C with Bioflavonoids 500-200 mg Tablet 1 tab PO UD RF: 0 darifenacin [Enablex] 15 mg tablet extended release 24 hr 15 mg PO QAM RF: 0 Tucks (witch phi) 50 % Pads, Medicated 1 pad TOPICAL BID PRN (Reason: Hemorrhoids) RF: 0 latanoprost 0.005 % drops 1 drp ophthalmic (eye) HS RF: 0 calcium carbonate-vitamin D3 [Calcium 600 + D(3)] 600 mg(1,500mg) -400 unit Tablet 1 tab PO QAM RF: 0 lisinopril 5 mg tablet 5 mg PO DAILY RF: 0 atorvastatin 20 mg Tablet 20 mg PO QAM 30 Days Qty: 30 RF: 2 clopidogrel 75 mg Tablet 75 mg PO QAM 30 Days Qty: 30 RF: 2 nitroglycerin [Nitrostat] 0.4 mg Tablet, Sublingual 0.4 mg sublingual PRN PRN (Reason: chest pain) Qty: 14 RF: 0 levothyroxine [Synthroid] 75 mcg tablet 75 mcg PO QAM RF: 0 pantoprazole 40 mg tablet,delayed release (DR/EC) 40 mg PO QAM RF: 0 furosemide 20 mg tablet 10 - 20 mg PO QAM PRN (Reason: Edema) RF: 0 Discontinued metoprolol tartrate 25 mg tablet 12.5 mg PO BID RF: 0 Discharge Orders: Discharge Order (Routine); Ordered 03/26/19 Ordered By: Luis Alfredo Smith Admission Data Admit Date/Time: 03/24/19 12:23 Attending Provider: Luis Alfredo Smith Admit Provider: Karen Hull Primary Care Provider: Ananya Staples Other Providers: Karen Hull ; Angel Phillips
== END 2019-03-26 11:42 | disposition home or self-care (01) | DRG 309 ==
LOC: ED 09:46 → SUATTDRO 12:23 → 2S 12:23